=== PATIENT | male | born 1970 | race Caucasian/White ===

== ENCOUNTER → 2016-12-08 | Outpatient (CLI) | payer OTHER ==
[~2016-12-08] MED LIST: IBUP-1050 PO; LISI-787 PO
--- NOTE | 2016-12-08 14:44 | DIAGNOSTIC IMAGING REPORT ---
RIGHT THUMB 3 VIEWS CLINICAL HISTORY: Right thumb pain. FINDINGS: 3 views of the right thumb are correlated with radiographs of the right hand dated 05/27/2015. The skeletal structures are well mineralized. No fracture is seen. The first metacarpophalangeal and interphalangeal joints are well-maintained. The overlying soft tissues are within normal limits. IMPRESSION: No acute bony abnormality is seen in the right thumb. Electronically signed by: Garfield Hebert M.D. 12/08/2016 2:43 PM Dictated Date/Time: 12/08/2016 2:42 PM
== END | disposition home or self-care (01) ==
LOC: C.RDSM 14:17
PROVIDERS: ATTEND Physical Medicine & Rehabilitation Sports Medicine
DX: M79.644 Pain in right finger(s) (principal)

== ENCOUNTER → 2017-12-07 | Outpatient (CLI) | payer OTHER ==
[~2017-12-07] VITALS: Ht 182.9 cm; Wt 118.0 kg
[2017-12-07 09:31] VITALS: BP 149/100; PULSE 76; Ht 182.9 cm; Wt 118.0 kg
== END | disposition home or self-care (01) ==
LOC: C.NEUR 08:59
PROVIDERS: ATTEND Internal Medicine Pulmonary Disease
DX: G47.33 Obstructive sleep apnea (adult) (pediatric) (principal)

== ENCOUNTER → 2017-12-15 | Outpatient (CLI) | payer OTHER ==
--- NOTE | 2017-12-16 05:26 | SPLIT NIGHT TECHNICIAN REPORT ---
[facility] Split Night Polysomnogram - Neon Sign Installer Report Study date: 12/15/2017 Referring Physician: Dr. Matias Matthew DO Name: ABISAI SAN Neon Sign Installer: RICHAR Ace. Date of : 1970 Height: 47 years, Height 6' 0" Sex: Male Weight: 260 lbs Age: 47 BMI: Medications: 35.26 Lorazepam 0.5 mg, Flaxseed Oil 1000 mg, INBU-200, Probiotic, Red Yeast Rice, Vitamin D 55808 units, Zestoretic 10-12.5 Patient History 47 yr. old male here for a possible split night sleep study. Patient complains of witnessed apneas and loud snoring. Patients [place] Sleepiness Scale Score is 9/24. Parameters Monitored NPSG: E1-M2, E2-M1, Fp1-M2, Fp2-M1, F3-M2, F4-M2, F4-M1, C3-M2, C4-M2, C4-M1, O1-M2, O2-M2, O2-M1, T3-M2, T4-M1, P3-M2, P4-M1, CHIN1, CHIN2, HR, EKG, Legs, PFLOW, SNOR, FLOW, CFLOW, Tidal Volume, THOR, ABDO, SpO2, PLTH, CPRESS, ETCO2 Wave, ETCO2, pH SLEEP SUMMARY DATA DIAGNOSTIC TREATMENT Lights Out: 9:58:43 PM NONE Lights On: 12:01:13 AM 5:10:13 AM Total Recording Time (TRT): 123.4 min. 296.6 min. Total Sleep Time (TST): 82.5 min. 240.0 min. NREM Time: 81.0 min. 159.5 min. REM Time: 1.5 min. 80.5 min. Sleep Period Time (SPT): 84.5 min. 285.0 min. Sleep Efficiency (SE): 67 % 81 % Sleep Latency: 9.5 min. NONE min. Arousal Index: 10.9 8.0 PAP Treatment Levels: 4, 5, 6, 7, 8, 9, 10, 11, 12, 13, 14, 15 * Optimal Pressure(s) SLEEP STAGING DATA DIAGNOSTIC TREATMENT Duration (min) TST % Duration (min) TST % Stage Wake: 40.9 min. -- 56.6 min. -- WASO: 30.5 min. -- 45.0 min. -- NREM: 81.0 min. 98 % 159.5 min. 66 % Stage N1: 9.0 min. 11 % 19.5 min. 8 % Stage N2: 54.0 min. 65 % 77.0 min. 32 % Stage N3: 18.0 min. 22 % 63.0 min. 26 % REM: 1.5 min. 2 % 80.5 min. 34 % POSITIONAL DATA Event Count Index Event Count Index Supine: 113 82.2 120 29.8 Supine NREM: 112 83.0 72 26.7 Supine REM: 1 40 48 36 Non-Supine: N/A N/A N/A N/A Non-Supine NREM: N/A N/A N/A N/A Non-Supine REM: N/A N/A N/A N/A AROUSAL SUMMARY DATA: Event Count Index Event Count Index Apnea Arousals: 0 2.9 9 10.5 Hypopnea Arousals: 7 5.1 6 1.5 Snore Arousals: 3 2.2 1 0.3 PLM Arousals: 0 0.0 0 0.0 Non-Specific Arousals: 4 2.9 10 2.5 Total Arousals: 15 10.9 32 8.0 MYOCLONUS (PLM) Event Count Index Event Count Index PLM: 1 0.7 6 1.5 PLM AROUSAL: 0 0.0 0 0.0 PLM W/O AROUSAL 1 0.7 6 1.5 PLM W/RESP EVENT 0 0.0 0 0.0 MYOCLONUS (PLM) Event Count Index Event Count Index LM: 3 21.8 34 8.5 LM AROUSAL: 3 2.2 5 1.3 LM W/O AROUSAL LM W/RESP EVENT LM NON SPECIFIC 19 13.8 19 4.8 HEART RATE DATA DIAGNOSTIC TREATMENT Sleep (bpm): 73 75 REM (bpm): 85 90 NREM (bpm): 89 91 Tachycardia Count: 0 0 Tachycardia Duration: 0.00 0 Bradycardia Count: 0 0 Bradycardia Duration: 0.00 0 DIAGNOSTIC PORTION TREATMENT PORTION RESPIRATORY DATA Event Count Index Event Count Index AHI: -- 82.2 -- 29.8 RDI: -- 82.2 -- 30 Obstructive Apnea: 0 0.0 13 3.3 Central Apnea: 4 2.9 29 7.3 Mixed Apnea: 0 0.0 0 0.0 Hypopnea: 109 79.3 77 19.3 RERA: 0 0.0 1 0.3 Total Apneas: 4 2.9 42 10.5 RESPIRATORY DATA REM NREM SLEEP REM NREM SLEEP Supine Position: Obstructive Apneas: 0 0 0 13 0 13 Central Apneas: 0 4 4 3 26 29 Mixed Apneas: 0 0 0 0 0 0 Hypopneas: 1 108 109 32 45 77 RERA 0 0 0 0 1 1 Total Supine Events: 1 112 113 48 72 120 Supine AHI: 40 83.0 82.2 36 26.7 29.8 Supine RDI: 40.0 83.0 82.2 35.8 27.1 30.0 REM NREM SLEEP REM NREM SLEEP Non-Supine Position: Obstructive Apneas: N/A N/A N/A N/A N/A N/A Central Apneas: N/A N/A N/A N/A N/A N/A Mixed Apneas: N/A N/A N/A N/A N/A N/A Hypopneas: N/A N/A N/A N/A N/A N/A RERA N/A N/A N/A N/A N/A N/A Total Supine Events: N/A N/A N/A N/A N/A N/A Supine AHI: N/A N/A N/A N/A N/A N/A Supine RDI: N/A N/A N/A N/A N/A N/A OXYGEN DESTAURATION DATA: Event Count Index Event Count Index REM Desaturations: 2 80.0 33 24.6 NREM Desaturations: 127 94.1 86 32.4 SNORE DATA DIAGNOSTIC TREATMENT Snore Time: 0.9 12:24:13 AM Snore TST%: 1 2 Snore Arousal Count: 3 1 Snore Arousal Index: 2.2 0.3 Desaturation Event Summary: Minimum %SpO2 Event Count Mean/Min/Max Duration(sec.) Desaturation Index % Time In Bed > 90 287 22.3 / 4.8 / 60.0 67.8 63.1 86 - 90 91 17.9 / 4.0 / 42.0 45.2 30.0 81 - 85 1 5.0 / 5.0 / 5.0 2.9 5.2 76 - 80 0 N/A 0.0 1.3 71 - 75 0 N/A 0.0 0.4 66 - 70 0 N/A 0.0 0.1 61 - 65 0 N/A 0.0 0.0 56 - 60 0 N/A 0.0 0.0 51 - 55 0 N/A 0.0 0.0 < 50 0 N/A 0.0 0.0 OXYGEN SATURATION DATA DIAGNOSTIC TREATMENT SpO2 Mean Sleep: 89 % 91 % SpO2 Mean REM: 85 % 90 % SpO2 Mean NREM: 89 % 91 % SpO2 Minimum Sleep: 69 % 72 % SpO2 Minimum REM: 72 % 72 % SpO2 Minimum NREM: 69 % 78 % Time Below 90% (TST): 46.3 53.7 Time Below 88% (TST): 26.4 28.0 Total REM NREM Awake <50% 0.0 min. 0.0 min. 0.0 min. 0.0 min. 51 - 60% 0.0 min. 0.0 min. 0.0 min. 0.0 min. 61 - 70% 0.2 min. 0.0 min. 0.2 min. 0.0 min. 71 - 80% 6.6 min. 6.0 min. 0.6 min. 0.0 min. 81 - 90% 141.7 min. 23.0 min. 100.4 min. 18.3 min. 91 - 100% 253.9 min. 50.9 min. 133.7 min. 69.3 min. Average 91 90 91 92 Minimum SpO2 69 72 69 80 Desaturation Event Index 46.2 25.6 53.1 49.5 # Desat. Events below 89% 229 24 178 27 Time(%) with Saturation below 89% 19.5 5.1 13.0 1.3 Time(min.) with Saturation below 89% 78.3 20.6 52.4 5.3 Recording Neon Sign Installer Comments: Mr. San slept in the supine positions. No cardiac arrhythmia or PLMs noted. No bruxism noted. Snoring was noted and scored as a 3 on a scale of 0 through 5. (0=no snoring, 5=snoring loud enough to be heard through a closed door or down the bautista way) At12:13 am , Mr. San met specific Split-Night criteria during the diagnostic portion of this study. CPAP was initiated at +4 CMH2O room air and up-titrated to a level of +15 CMH2O Cflex 1. A medium [employer] Simplus, was used during titration. Mr. San awoke to use the restroom once during the night, this was after pulling mask off along with all the leads at 3:44 am. Mr. San stated, " I slept okay". The final report will be interpreted and signed by a sleep physician. The completed physician report will then be placed in the patient medical record. Therapy Event: Therapy (cm H20) 0 4 5 6 7 8 9 Total Time at Pressure (min.) 123.4 23.9 12.0 13.6 13.1 24.6 6.7 TST at Pressure (min.) 82.5 11.8 12.0 13.6 13.1 24.6 6.7 # Periods 1 1 1 1 1 1 1 Sleep Onset (min.) 9.5 10.1 0.0 0.0 0.0 0.0 0.0 REM Onset (min.) 87.0 N/A N/A N/A N/A 21.1 0.0 Sleep Efficiency % 66 49 100 100 100 100 100 Wakefulness (%) 33.2 50.6 0.0 0.0 0.0 0.0 0.0 Wakefulness (min.) 40.9 12.1 0.0 0.0 0.0 0.0 0.0 NREM 1 (%) 7.3 31.4 0.0 0.0 0.0 2.0 0.0 NREM 1 (min.) 9.0 7.5 0.0 0.0 0.0 0.5 0.0 NREM 2 (%) 43.7 18.0 100.0 100.0 69.9 16.2 0.0 NREM 2 (min.) 54.0 4.3 12.0 13.6 9.1 4.0 0.0 NREM 3 (%) 14.6 0.0 0.0 0.0 30.1 67.3 0.0 NREM 3 (min.) 18.0 0.0 0.0 0.0 3.9 16.6 0.0 REM (%) 1.2 0.0 0.0 0.0 0.0 14.5 100.0 REM (min.) 1.5 0.0 0.0 0.0 0.0 3.6 6.7 # Arousals 15 8 1 1 0 2 0 Arousal Index 10.9 40.7 5.0 4.4 0.0 4.9 0.0 # Snore 35 4 35 12 5 3 8 Snore Index 25.5 20.4 174.6 53.1 23.0 7.3 71.7 AHI 82.2 96.7 99.8 66.4 46.0 14.6 62.8 AHI Supine 82.2 96.7 99.8 66.4 46.0 14.6 62.8 AHI Non-Supine N/A N/A N/A N/A N/A N/A N/A NREM AHI 83.0 96.7 99.8 66.4 46.0 2.8 N/A REM AHI 40.0 N/A N/A N/A N/A 84.1 62.8 RDI 82.2 96.7 99.8 66.4 46.0 17.0 62.8 # Obstructive 0 0 0 0 0 3 4 # Central Ap 4 17 8 1 0 0 0 # Mixed 0 0 0 0 0 0 0 # Hypopneas 109 2 12 14 10 3 3 RERAS 0 0 0 0 0 1 0 Total Respiratory Events 113 19 20 15 10 7 7 Time Below SpO2 89.00% (min.) 35.7 2.0 4.2 5.4 4.3 2.7 3.6 Mean NREM SpO2 (%) 89 91 90 90 89 90 N/A Mean REM SpO2 (%) 85 N/A N/A N/A N/A 88 87 Mean Sleep SpO2 (%) 89 91 90 90 89 90 87 Min NREM SpO2 (%) 69 78 82 82 85 87 N/A Min REM SpO2 (%) 72 N/A N/A N/A N/A 74 75 Position Supine (min.) 82.5 11.8 12.0 13.6 13.1 24.6 6.7 Position Non-supine (min.) 0.0 0.0 0.0 0.0 0.0 0.0 0.0 LM Index Sleep 22.5 45.8 15.0 4.4 4.6 4.9 17.9 LM Index NREM 23.0 45.8 15.0 4.4 4.6 2.8 N/A LM Index REM 0.0 N/A N/A N/A N/A 16.8 17.9 Mean Heart Rate (bpm) 73 66 67 69 71 75 78 Min Heart Rate (bpm) 62 60 59 58 62 68 70 Therapy (cm H20) 10 11 12 13 14 15 Total Time at Pressure (min.) 11.4 15.6 20.5 125.0 12.8 17.0 TST at Pressure (min.) 11.4 15.6 20.5 82.0 12.8 16.0 # Periods 1 1 1 1 1 1 Sleep Onset (min.) 0.0 0.0 0.0 0.0 0.0 0.0 REM Onset (min.) 0.0 0.0 0.0 120.4 0.0 0.0 Sleep Efficiency % 100 100 100 65 100 94 Wakefulness (%) 0.0 0.0 0.0 34.4 0.0 5.9 Wakefulness (min.) 0.0 0.0 0.0 43.0 0.0 1.0 NREM 1 (%) 0.0 0.0 0.0 8.8 3.9 0.0 NREM 1 (min.) 0.0 0.0 0.0 11.0 0.5 0.0 NREM 2 (%) 0.0 0.0 49.6 19.1 0.0 0.0 NREM 2 (min.) 0.0 0.0 10.1 23.9 0.0 0.0 NREM 3 (%) 0.0 0.0 0.0 34.0 0.0 0.0 NREM 3 (min.) 0.0 0.0 0.0 42.5 0.0 0.0 REM (%) 100.0 100.0 50.4 3.7 96.1 94.1 REM (min.) 11.4 15.6 10.3 4.7 12.3 16.0 # Arousals 0 2 1 14 2 1 Arousal Index 0.0 7.7 2.9 10.2 9.3 3.8 # Snore 11 16 18 14 1 1 Snore Index 58.1 61.7 52.8 10.2 4.7 3.8 AHI 42.3 34.7 17.6 6.6 32.7 11.3 AHI Supine 42.3 34.7 17.6 6.6 32.7 11.3 AHI Non-Supine N/A N/A N/A N/A N/A N/A NREM AHI N/A N/A 0.0 4.7 0.0 N/A REM AHI 42.3 34.7 34.9 38.7 34.0 11.3 RDI 42.3 34.7 17.6 6.6 32.7 11.3 # Obstructive 3 2 0 1 0 0 # Central Ap 0 0 0 0 3 0 # Mixed 0 0 0 0 0 0 # Hypopneas 5 7 6 8 4 3 RERAS 0 0 0 0 0 0 Total Respiratory Events 8 9 6 9 7 3 Time Below SpO2 89.00% (min.) 4.3 4.4 1.7 1.6 2.0 1.0 Mean NREM SpO2 (%) N/A N/A 93 92 93 N/A Mean REM SpO2 (%) 89 90 92 90 92 92 Mean Sleep SpO2 (%) 89 90 92 92 92 92 Min NREM SpO2 (%) N/A N/A 88 88 92 N/A Min REM SpO2 (%) 72 73 82 83 78 84 Position Supine (min.) 11.4 15.6 20.5 82.0 12.8 16.0 Position Non-supine (min.) 0.0 0.0 0.0 0.0 0.0 0.0 LM Index Sleep 21.1 23.1 11.7 3.7 9.3 3.8 LM Index NREM N/A N/A 0.0 3.9 120.0 N/A LM Index REM 21.1 23.1 23.3 0.0 4.9 3.8 Mean Heart Rate (bpm) 77 77 78 77 79 77 Min Heart Rate (bpm) 68 70 69 66 67 69
--- NOTE | 2017-12-19 14:23 | POLYSOMNOGRAPH REPORT ---
CLINICAL DATA: The patient is a 47-year-old male with a history of snoring and nocturnal gasping. His Haw[place] sleepiness scale score is 9 out of a possible 24. His BMI is 35.26. He has had hypertension, which has been difficult to control. His referring is Dr. Ta Last. This was an in-lab overnight split study. SLEEP ARCHITECTURE: The study was divided into a diagnostic and therapeutic portions utilizing nasal CPAP during the therapeutic portion of the study. During the diagnostic portion, the sleep period time was 84.5 minutes. The total sleep time was 82.5 minutes. The sleep latency was 9.5 minutes. The sleep efficiency was reduced to 67%. Sleep consisted of stage N1 of 11%, stage N2 of 65%, stage N3 of 22%, stage, and stage REM 2%. During the therapeutic portion of the study, the sleep period time was 285 minutes. The total sleep time was 240 minutes. The sleep efficiency was 81%. Sleep latency was 0. Sleep consisted of stage N1 of 8%, stage N2 of 32%, stage N3 of 26%, and stage REM 34%. AROUSAL DATA: During the diagnostic portion of the study, the patient had a total of 15 arousals including 7 hypopnea arousals, 3 snoring arousals, and 4 nonspecific arousals. The arousal index was 10.9. During the therapeutic portion of the study, the patient had 32 arousals including 9 apnea arousals, 6 hypopnea arousals, 1 snoring arousal, and 10 nonspecific arousals. The arousal index was 8.0. PLM DATA: During the diagnostic portion of the study, the patient had only 1 periodic limb movements for a PLM index of 0.7. During the therapeutic portion, he had 6 periodic limb movements for a PLM index of 1.5. There was no arousals associated with limb movements throughout the night. EKG: The underlying cardiac rhythm was normal sinus. The cardiac rates ranged from 73-91 beats per minute. No arrhythmias were noted. RESPIRATORY DATA: During the diagnostic portion of the study, the patient had a total of 113 respiratory events including 4 central apneas and 109 hypopneas. Hypopneas were scored according to the 4% desaturation rule. The apnea hypopnea index was severely elevated at 82.2 events per hour. During the therapeutic portion of the study, the patient was treated with nasal CPAP, which was titrated to a final pressure of 15 cm. The patient had a total of 119 respiratory events including 13 obstructive apneas, 29 central apneas, and 77 hypopneas. The apnea hypopnea index was 29.8. At the final pressure of 15 cm, the apnea-hypopnea index was 11.3. However, there was only a total of 16 minutes of sleep at that final pressure. OXIMETRY DATA: During the diagnostic portion of the study, the mean saturation was 89%. The minimum saturation was 69%. The time below 88% was 26.4 minutes. During the therapeutic portion of the study, the mean saturation was 91%. The minimum saturation was 72%. There was a total of 28 minutes with saturations less than 88%. GREENKEEPER COMMENTS: The patient slept in the supine position. No cardiac arrhythmia noted. No bruxism noted. Snoring was noted and scored as a 3 on a scale of 0 through 5. At 12:13 a.m., Mr. Benito met specific split night criteria during the diagnostic portion of the study. CPAP was initiated at 4 cm and up titrated to a level of 15 cm with C-Flex 1. A medium [employer] Simplus mask was used during the titration. He awakened to use the restroom one time during the night. This was after pulling his mask off along with all of the leads at 03:44 a.m. IMPRESSION: Obstructive sleep apnea -- severe -- improved with nasal CPAP at 15 cm. COMMENTS: The patient has severe sleep apnea as noted. He was treated with nasal CPAP. He had persistence of respiratory events. Early on, he had a fair amount of central apneas. This significantly improved as the night went on. Most of the central apneas resolved at a pressure of 6 cm. He did not have much sleep time at the final pressure. RECOMMENDATIONS: 1. It is advised that the patient be started on nasal CPAP at 15 cm. 2. Compliance data needs to be obtained after CPAP is initiated to see if he is having residual apneas and hypopneas. 3. It would be advised that he be ordered a [employer] Simplus mask, size medium. 4. Weight loss is advised in light of the elevation of body mass index of 35.26. 5. The patient should be seen back in followup between day 31 and day 90 after being on CPAP.
== END | disposition home or self-care (01) ==
LOC: C.NEUR 21:00
PROVIDERS: ATTEND Internal Medicine Pulmonary Disease
DX: G47.33 Obstructive sleep apnea (adult) (pediatric) (principal)

== ENCOUNTER 2023-03-27 11:32 | Inpatient (IN) ==
[2023-03-27 12:53] LABS: Basophils # (auto) 0.03 K/uL (0-0.2); Basophils % (auto) 0.4 %; Eosinophils # (auto) 0.09 K/uL (0-0.50); Eosinophils % (auto) 1.3 %; Hematocrit (blood only) 43.9 % (42.0-52.0); Hemoglobin 15.4 g/dl (14.0-18.0); Immature Granulocytes # (auto) 0.02 K/uL (0.01-0.20); Immature Granulocytes % (auto) 0.3 %; Lymphocytes # (auto) 1.31 K/uL (1.2-3.4); Lymphocytes % (auto) 19.6 %; Mean Corpuscular Hemoglobin 30.1 pg (25.0-34.0); Mean Corpuscular Hgb Conc 35.1 g/dL (32.0-36.0); Mean Corpuscular Volume 85.7 fL (80.0-100.0); Mean Platelet Volume 9.9 fL (9.4-12.4); Monocytes # (auto) 0.58 K/uL (0.11-0.59); Monocytes % (auto) 8.7 %; Neutrophils # (auto) 4.64 K/uL (1.40-6.50); Neutrophils % (auto) 69.7 %; Platelet Count 188 K/uL (130-400); RDW Coefficient of Variation 12.4 % (11.5-14.5); RDW Standard Deviation 38.5 fL (36.4-46.3); Red Blood Count 5.12 M/uL (4.70-6.10); White Blood Count 6.67 K/ul (4.8-10.8)
[2023-03-27 13:10] LABS: Alanine Aminotransferase 24 U/L (7-52); Albumin Globulin Ratio 1.9 (0.9-2); Albumin Level 4.8 gm/dl (3.4-5.0); Alkaline Phosphatase 75 U/L (34-104); Anion Gap 8 (3-11); Aspartate Aminotransferase 20 U/L (13-39); BUN Creatinine Ratio 17.4 (10-20); Bilirubin,Total 0.7 mg/dl (0.2-1.0); Blood Urea Nitrogen 16 mg/dl (6-23); Calcium 9.6 mg/dl (8.6-10.3); Carbon Dioxide 30 mmol/L (21-32); Chloride 103 mmol/L (98-107); Creatinine Clr Calc Pharmacy 115.9 ml/min; Est GFR (African American) 108.9 ml/min; Globulin 2.5 gm/dl (2.5-4.0); Glucose 84 mg/dl (70-99(Fasting)); Potassium 3.5 mmol/L (3.5-5.1); Sodium 141 mmol/L (136-145); Total Protein 7.3 gm/dl (6.0-8.3)
[2023-03-27 14:20] LABS: Prothrombin Time 11.2 Seconds (9.0-12.0)
[2023-03-27] MEDS ORDERED: cefTRIAXone SODIUM 2,000 MG/70 ML BAG IV STA (14:24)
[2023-03-27 14:28] LABS: C Reactive Protein < 0.50 mg/dl (0-0.5)
--- NOTE | 2023-03-27 14:30 | Ultrasound Report ---
US venous doppler LE LT CLINICAL HISTORY: swelling, redness TECHNIQUE: Left lower extremity real-time compression venous ultrasound with Color Doppler imaging. U tilizing real-time ultrasonic imaging multiple real time high-resolution ultrasonic images with compr ession and noncompression maneuvers of the deep venous system in addition to color doppler imaging we re performed from the common femoral vein through the proximal calf veins. COMPARISON: None available at the time of this dictation. FINDINGS/IMPRESSION: Currently there is normal compressibility of the deep venous system from the common femoral vein thro ugh the proximal calf veins. Suprapatellar echogenic collection is seen measuring 33 x 13 x 29 mm, p ossibly a complex hematoma. Correlation with stream physical exam is recommended. ACT 112: Negative or not required by law. Electronically signed by: Abner Elaine M.D. 03/27/2023 2:28 PM
--- NOTE | 2023-03-27 14:31 | Emergency Department Note ---
I had nothing to do with this document, I opened it to read the ED doc's assessment and got added as a contributor now required to sign. Impression & Plan MSSA infection, non-invasive, Bursitis of left knee ED Provider Note Provider: Carmelo Doran MD DATE OF SERVICE: 03/27/2023 CHIEF COMPLAINT: Left knee swelling, referred HISTORY OF PRESENT ILLNESS: Patient is a 53-year-old gentleman history of hypertension presenting here today referred by his primary care doctor's office regarding his left knee. Patient states over the past almost a month at this time he has been dealing with redness and swelling and pain to the front of his left knee. Patient denies significant trauma. Initially started on doxycycline with some concern for Lyme disease. Seen in the outpatient clinic by jesusita panchal and had a bursal drainage a week ago and started on Keflex at that time as well. Culture grew MSSA but not having improvement. Seen by the PCPs office today and sent here. States occasionally has been feeling bit off and like at times he seems to need to find words. States fevers initially but not a week or 2. Some swelling of the left lower leg as well. Denies significant issue with the right leg. Denies other pain. Strong history of gout in the past. Has been using ibuprofen and Tylenol to help with pain but able to move the leg fairly well it hurts when he kneels on it. PAST MEDICAL HISTORY: As noted above MEDICATIONS: Reviewed home medications SOCIAL HISTORY: , distant former smoker, has cut back on alcohol recently PHYSICAL EXAM: GENERAL: alert and oriented in no acute distress on stretcher Head: normocephalic and atraumatic EYES: No injection, discharge or icterus. NECK: Trachea midline. ENT: Mucous membranes pink and moist. LUNGS: Airway patent. No retractions. Breath sounds clear with good air entry bilaterally. HEART: Regular rate and rhythm. No chest wall tenderness SKIN: Acyanotic, warm, dry, without rashes EXTREMITIES: 1+ edema surrounding the left knee with erythema anteriorly. 1+ edema of the left lower extremity to the ankle. No significant cords in the calf appreciated bilaterally. NEUROLOGICAL: No focal deficits. No aphasia. No facial droop or slurred speech. Ambulatory. Patient's laboratory studies and imaging reviewed. Differential includes DVT, musculoskeletal, infection, joint effusion, trauma, lymphedema, idiopathic, CHF, as well as other pathologies. IMPRESSION/MEDICAL DECISION MAKING: Patient with swelling of the left knee. Culture of MSSA from aspirated bursa last week in the office. Has been on doxycycline for several weeks and a week of Keflex now. Culture reportedly sensitive but not without significant improvement. Some swelling of the left lower leg. Denies significant recent travel completed ultrasound to exclude DVT. Does not appear to be vascular compromise at this time and doubt arterial issue. Able to move the joint fairly well and ESR not elevated and I doubt that this is a septic joint. Question if the bursa is inflamed and infected. Normal white count. Afebrile now. Distant fever several weeks ago. Will send cultures but I doubt that he is truly septic. Ultrasound by myself at bedside without a clear circumscribed collection although ultrasound does note possibly a complex hematoma there. Had an x-ray not long ago without evidence of retained foreign body. Thought there might been a little bit of bite to the lateral aspect at some point in the did feel some skin but I do not see a clear wound or abscess to drain at this time. Discussed with our pharmacist. Given a dose of ceftriaxone given the MSSA culture. Discussed with him and his at bedside options at this time and in shared decision-making observation for further IV antibiotics and evaluation of the knee was decided upon. Hospitalist contacted. DIAGNOSIS: Left knee pain and swelling, bursitis DISPOSITION: Hospitalist will evaluate Patient was agreeable with this plan. 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 Surgical History History of carpal tunnel release right History of colonoscopy S/P excision of ganglion cyst S/P tendon repair right ring finger S/P wisdom tooth extraction Status post amputation of finger right little finger tip Family History Other No family history of adverse response to anesthesia No pertinent family history in first degree relatives Social History Smoking Status: Former smoker Cigarettes Per Day: 1 ppd x 14 years; Second Hand Exposure: Yes (hx); Do You Dip or Chew Tobacco: No (quit 2014); Hx Alcohol Use: Yes Alcohol type: hard liquor Hx Substance Use: No Preferred Language: Swiss Communication Ability: Effective 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 Required: No Beliefs That Will Affect Care: None Current Living Situation: Spouse Feels Safe at Home: Yes Assistive Devices: Glasses Allergies Allergies Allergy/AdvReac Type Severity Reaction Status Date / Time No Known Allergies Allergy Verified 03/27/23 15:21 Home Meds Home Medications Medication Instructions Recorded Confirmed alprazolam 0.5 mg tablet 0.5 mg PO BID PRN Anxiety 11/16/18 03/27/23 amlodipine 5 mg tablet 5 mg PO QAM 01/28/19 03/27/23 cholecalciferol (vitamin D3) 25 3,000 unit PO DAILY 01/28/19 03/27/23 mcg (1,000 unit) capsule (Vitamin D3) citalopram 10 mg tablet 10 mg PO QAM 01/28/19 03/27/23 cyanocobalamin (vitamin B-12) 1,000 mcg PO DAILY 01/28/19 03/27/23 1,000 mcg tablet (Vitamin B-12) flaxseed oil 1,000 mg capsule 1,000 mg PO DAILY 01/28/19 03/27/23 red yeast rice 600 mg capsule 600 mg PO DAILY 01/28/19 03/27/23 lisinopril 10 2 tab PO QAM 11/20/19 03/27/23 mg-hydrochlorothiazide 12.5 mg tablet allopurinol 100 mg tablet 100 mg PO BID 03/27/23 03/27/23 colchicine 0.6 mg tablet 0.6 mg PO QAM 03/27/23 03/27/23 diclofenac sodium 1 % topical gel 2 g topical QID 03/27/23 03/27/23 doxycycline hyclate 100 mg capsule 100 mg PO BID 03/27/23 03/27/23 gabapentin 100 mg capsule 100 mg PO BID 03/27/23 03/27/23 lorazepam 0.5 mg tablet 0.5 mg PO Q8H PRN Anxiety 03/27/23 03/27/23 Previous Rx's Medication Instructions Recorded oxycodone 5 mg tablet 5 - 10 mg PO Q4H PRN pain #15 tabs 11/28/19 Results & Data (ED) Vital Signs Vital Signs - 24 hr 03/27/23 11:42 03/27/23 13:25 03/27/23 13:45 Temperature 36.5 C Temperature Source Temporal Artery Scan Pulse Rate 86 72 Pulse Rate [Apical] 69 Pulse Rate from SpO2 Sensor Respiratory Rate 20 20 Respiratory Effort / Characteristics Non-Labored Respiratory Depth Normal Blood Pressure 172/108 H Blood Pressure [Right Arm] 175/104 H Blood Pressure Mean 129 Blood Pressure Mean [Right Arm] 127 Pulse Oximetry 97 95 Oxygen Delivery Method Room Air Room Air Sepsis Recent Fever Within 48 Hours No Sepsis New/Unexplained Change in Mental Status N/A Sepsis Action Taken by Nursing No Action Required 03/27/23 17:43 03/27/23 14:26 03/27/23 14:30 Temperature Temperature Source Pulse Rate 66 72 67 Pulse Rate [Apical] Pulse Rate from SpO2 Sensor 70 66 Respiratory Rate 24 15 Respiratory Effort / Characteristics Respiratory Depth Blood Pressure 151/104 H 147/112 H Blood Pressure [Right Arm] Blood Pressure Mean 119 123 Blood Pressure Mean [Right Arm] Pulse Oximetry 96 95 Oxygen Delivery Method Sepsis Recent Fever Within 48 Hours Sepsis New/Unexplained Change in Mental Status Sepsis Action Taken by Nursing 03/27/23 15:01 03/27/23 15:30 03/27/23 16:00 Temperature Temperature Source Pulse Rate 78 70 72 Pulse Rate [Apical] Pulse Rate from SpO2 Sensor 79 71 72 Respiratory Rate 23 18 22 Respiratory Effort / Characteristics Respiratory Depth Blood Pressure 165/129 H 175/111 H 186/130 H Blood Pressure [Right Arm] Blood Pressure Mean 141 132 148 Blood Pressure Mean [Right Arm] Pulse Oximetry 95 95 96 Oxygen Delivery Method Sepsis Recent Fever Within 48 Hours Sepsis New/Unexplained Change in Mental Status Sepsis Action Taken by Nursing 03/27/23 16:03 03/27/23 16:30 03/27/23 17:00 Temperature Temperature Source Pulse Rate 71 67 69 Pulse Rate [Apical] Pulse Rate from SpO2 Sensor 73 68 69 Respiratory Rate 22 15 21 Respiratory Effort / Characteristics Respiratory Depth Blood Pressure 189/118 H 180/110 H 183/117 H Blood Pressure [Right Arm] Blood Pressure Mean 141 133 139 Blood Pressure Mean [Right Arm] Pulse Oximetry 97 94 93 Oxygen Delivery Method Sepsis Recent Fever Within 48 Hours Sepsis New/Unexplained Change in Mental Status Sepsis Action Taken by Nursing 03/27/23 17:30 Temperature Temperature Source Pulse Rate 67 Pulse Rate [Apical] Pulse Rate from SpO2 Sensor 68 Respiratory Rate 13 Respiratory Effort / Characteristics Respiratory Depth Blood Pressure 165/104 H Blood Pressure [Right Arm] Blood Pressure Mean 124 Blood Pressure Mean [Right Arm] Pulse Oximetry 96 Oxygen Delivery Method Sepsis Recent Fever Within 48 Hours Sepsis New/Unexplained Change in Mental Status Sepsis Action Taken by Nursing Laboratory Data 03/27/23 12:20 03/27/23 12:20 Lab Results 03/27/23 03/27/23 03/27/23 Range/Units 12:20 12:20 12:20 WBC 6.67 (4.8-10.8) K/ul RBC 5.12 (4.70-6.10) M/uL Hgb 15.4 (14.0-18.0) g/dl Hct 43.9 (42.0-52.0) % MCV 85.7 (80.0-100.0) fL MCH 30.1 (25.0-34.0) pg MCHC 35.1 (32.0-36.0) g/dL RDW Std Deviation 38.5 (36.4-46.3) fL RDW Coeff of Inez 12.4 (11.5-14.5) % Plt Count 188 (130-400) K/uL MPV 9.9 (9.4-12.4) fL Immature Gran % (Auto) 0.3 % Neut % (Auto) 69.7 % Lymph % (Auto) 19.6 % Rincon % (Auto) 8.7 % Eos % (Auto) 1.3 % Baso % (Auto) 0.4 % Neut # (Auto) 4.64 (1.40-6.50) K/uL Lymph # (Auto) 1.31 (1.2-3.4) K/uL R[place] # (Auto) 0.58 (0.11-0.59) K/uL Eos # (Auto) 0.09 (0-0.50) K/uL Baso # (Auto) 0.03 (0-0.2) K/uL Immature Gran # (Auto) 0.02 (0.01-0.20) K/uL ESR 5 (0-20) mm/hr PT (9.0-12.0) Seconds INR (0.9-1.1) Sodium 141 (136-145) mmol/L Potassium 3.5 (3.5-5.1) mmol/L Chloride 103 (98-107) mmol/L Carbon Dioxide 30 (21-32) mmol/L Anion Gap 8 (3-11) BUN 16 (6-23) mg/dl Creatinine 0.92 (0.6-1.4) mg/dl Est Cr Clr Drug Dosing 115.9 ml/min Est GFR ( Amer) 108.9 ml/min Est GFR (Non-Af Amer) 94.0 ml/min BUN/Creatinine Ratio 17.4 (10-20) Glucose 84 (70-99(Fasting)) mg/dl Calcium 9.6 (8.6-10.3) mg/dl Total Bilirubin 0.7 (0.2-1.0) mg/dl AST 20 (13-39) U/L ALT 24 (7-52) U/L Alkaline Phosphatase 75 (34-104) U/L C-Reactive Protein < 0.50 (0-0.5) mg/dl Total Protein 7.3 (6.0-8.3) gm/dl Albumin 4.8 (3.4-5.0) gm/dl Globulin 2.5 (2.5-4.0) gm/dl Albumin/Globulin Ratio 1.9 (0.9-2) Procalcitonin (0-0.5) ng/ml SARS-CoV-2, RNA, NAAT (NEGATIVE) 03/27/23 03/27/23 03/27/23 Range/Units 12:20 12:20 Unknown WBC (4.8-10.8) K/ul RBC (4.70-6.10) M/uL Hgb (14.0-18.0) g/dl Hct (42.0-52.0) % MCV (80.0-100.0) fL MCH (25.0-34.0) pg MCHC (32.0-36.0) g/dL RDW Std Deviation (36.4-46.3) fL RDW Coeff of Inez (11.5-14.5) % Plt Count (130-400) K/uL MPV (9.4-12.4) fL Immature Gran % (Auto) % Neut % (Auto) % Lymph % (Auto) % Rincon % (Auto) % Eos % (Auto) % Baso % (Auto) % Neut # (Auto) (1.40-6.50) K/uL Lymph # (Auto) (1.2-3.4) K/uL R[place] # (Auto) (0.11-0.59) K/uL Eos # (Auto) (0-0.50) K/uL Baso # (Auto) (0-0.2) K/uL Immature Gran # (Auto) (0.01-0.20) K/uL ESR (0-20) mm/hr PT 11.2 (9.0-12.0) Seconds INR 1.0 (0.9-1.1) Sodium (136-145) mmol/L Potassium (3.5-5.1) mmol/L Chloride (98-107) mmol/L Carbon Dioxide (21-32) mmol/L Anion Gap (3-11) BUN (6-23) mg/dl Creatinine (0.6-1.4) mg/dl Est Cr Clr Drug Dosing ml/min Est GFR ( Amer) ml/min Est GFR (Non-Af Amer) ml/min BUN/Creatinine Ratio (10-20) Glucose (70-99(Fasting)) mg/dl Calcium (8.6-10.3) mg/dl Total Bilirubin (0.2-1.0) mg/dl AST (13-39) U/L ALT (7-52) U/L Alkaline Phosphatase (34-104) U/L C-Reactive Protein (0-0.5) mg/dl Total Protein (6.0-8.3) gm/dl Albumin (3.4-5.0) gm/dl Globulin (2.5-4.0) gm/dl Albumin/Globulin Ratio (0.9-2) Procalcitonin < 0.05 (0-0.5) ng/ml SARS-CoV-2, RNA, NAAT NEGATIVE (NEGATIVE) Administered Medications Discontinued Medications Hydralazine HCl (Hydralazine Hcl 20 Mg/Ml Vial) 10 mg IV NOW STA Stop: 03/27/23 16:33 Last Admin: 03/27/23 17:18 Dose: 10 mg Documented By: NRB Ceftriaxone Sodium (Rocephin) 2,000 mg in 70 mls @ 140 mls/hr IV NOW STA Stop: 03/27/23 14:53 Last Infusion: 03/27/23 15:32 Dose: 0 mls/hr Documented By: Admin: 03/27/23 15:06 Dose: 140 mls/hr Documented By: YASMIN Ketorolac Tromethamine (Ketorolac Tromethamine 15 Mg/Ml Vial) 15 mg IV NOW STA Stop: 03/27/23 15:27 Last Admin: 03/27/23 16:08 Dose: 15 mg Documented By: RSEvelyn Imaging Data Radiologist's Impression: Venous Doppler Study 03/27/23 13:46 US venous doppler LE LT CLINICAL HISTORY: swelling, redness TECHNIQUE: Left lower extremity real-time compression venous ultrasound with Color Doppler imaging. Utilizing real-time ultrasonic imaging multiple real time high-resolution ultrasonic images with compression and noncompression maneuvers of the deep venous system in addition to color doppler imaging were performed from the common femoral vein through the proximal calf veins. COMPARISON: None available at the time of this dictation. FINDINGS/IMPRESSION: Currently there is normal compressibility of the deep venous system from the common femoral vein through the proximal calf veins. Suprapatellar echogenic collection is seen measuring 33 x 13 x 29 mm, possibly a complex hematoma. Correlation with stream physical exam is recommended. ACT 112: Negative or not required by law. Electronically signed by: Abner Elaine M.D. 03/27/2023 2:28 PM Knee X-Ray 03/27/23 15:32 XR knee LT 1 or 2V routine CLINICAL HISTORY: Eval for MSSA bony involvement TECHNIQUE: 2 views of the left knee were obtained. Comparison: Comparison is made to knee radiograph 06/03/2013 FINDINGS: There is no evidence of an acute fracture or focal erosion. Joint spaces are well-preserved. No joint effusion is seen. Soft tissue swelling is seen. IMPRESSION: Soft tissue swelling which may represent cellulitis, without evidence of bony involvement. ACT 112: Negative or not required by law. Electronically signed by: Abner Elaine M.D. 03/27/2023 4:28 PM Discharge Plan Visit Data Chief Complaint: Infection Stated Complaint: REF BY DOC; LT KNEE PAIN/INFECTION ED Provider: Carmelo Doran Discharge Problem: MSSA infection, non-invasive, Bursitis of left knee Patient Disposition: Being Evaluated by Hospitalist Forms Stand Alone Forms: [facility] Prescriptions Prescriptions: No Action alprazolam 0.5 mg Tablet 0.5 mg PO BID PRN (Reason: Anxiety) citalopram 10 mg Tablet 10 mg PO QAM cyanocobalamin (vitamin B-12) [Vitamin B-12] 1,000 mcg Tablet 1,000 mcg PO DAILY amlodipine 5 mg Tablet 5 mg PO QAM flaxseed oil 1,000 mg Capsule 1,000 mg PO DAILY cholecalciferol (vitamin D3) [Vitamin D3] 1,000 unit Capsule 3,000 unit PO DAILY red yeast rice 600 mg Capsule 600 mg PO DAILY lisinopril-hydrochlorothiazide 10-12.5 mg Tablet 2 tab PO QAM oxycodone 5 mg Tablet 5 - 10 mg PO Q4H PRN (Reason: pain) Qty: 15 0RF Rx Instructions: 5mg for pain 1-5 10 mg for pain 6-10 doxycycline hyclate 100 mg capsule 100 mg PO BID Rx Instructions: Start Date 03/12/23 - End Date 03/26/23 (Pt states he has 2-3 capsules left) allopurinol 100 mg tablet 100 mg PO BID lorazepam 0.5 mg tablet 0.5 mg PO Q8H PRN (Reason: Anxiety) gabapentin 100 mg capsule 100 mg PO BID colchicine 0.6 mg tablet 0.6 mg PO QAM diclofenac sodium 1 % gel 2 g TOPICAL QID Referrals Referrals: Ta Last MD [Primary Care Provider] -
--- NOTE | 2023-03-27 15:11 | History & Physical Report ---
Date of Service March 27, 2023 Assessment & Plan (1) Cellulitis of leg, left: (2) MSSA infection, non-invasive: Plan: - Admit to med surg - MSSA + culture from synovial fluid from 03/20 by ortho at [facility], neg Lymes testing, neg uric acid upon review of outpatient EPIC results - Pt has been on oral Keflex x 7 days (started on 03/20) and doxycycline (started on 03/12) -- Continue on IV cipro and flagyl for more anaerobic coverage - Xray the knee now, consider MRI of the knee pending results - Consider orthopedics consultation - US of the leg reviewed showing fluid collection, negative for DVT - No gout as per testing as outpatient, can continue allopurinol but dc colchicine as there is no acute flare - Encourage ambulation, US leg negative for DVT - Continue pain control with toradol IV prn (3) Hypertension: Plan: - May continue home meds of lisionpril-HCTZ, amlodipine - BP is acutely elevated at 189/113 upon my recheck, and pt reports did take home meds today - will order prn hydralazine with one dose now - possible white coat syndrome - pt has underlying anxiety at baseline (4) Alcohol use: Plan: - Pt reports having previously used up to a 5th of [employer] daily for years-- since the possible gout flare about 1 month ago he reduced to 1-3 beers per night -- states no withdrawal symptoms and has not been drinking much beer at all because he has not felt well in the past 3 weeks. Previously quite smoking cigarettes and chewing snuff cold turkey without difficulty. - Monitor (5) Anxiety: Plan: - Cont celexa, gabapentin BID, and ativan 0.5 mg bid prn DVT ppx: teds, scds of R leg CODE: FULL Dispo: From home, likely to remain in the hospital x 1-2 days A total of 76 minutes were spent with greater than 50% of that time face to face with the patient, personally reviewing all current laboratories, imaging studies , past medication reconciliation, outpatient chart review, and discussion with specialists to collaborate care for the patient with attending. Please see attending documentation for corrections and/or additions. History of Present Illness Chief Complaint: Left knee redness and swelling Primary Care Provider: Ta Last MD This is a 53-year-old male with PMHx of HTN, HLD, and TRUNG with CPAP, BEBO, previous alcohol abuse and previous remote smoking and chewing use, who presents to the hospital after being referred by his PCP today. Patient has been being treated as an outpatient for approximately the last 4 weeks for left knee erythema and swelling. Pt recalls around 02/25 he bumped the outside of his left side of his knee at work which developed a small area of a scab, and had residual lower leg puffiness and redness thereafter . He was seen on 03/03 by his PCP initially due to redness, swelling, pain as well as difficulty bending his knee. Possibility of Lymes led course of doxycycline, however his Lyme's titers are negative. Knee did not improve with doxy alone. Pt was prescribed colchicine for possible gout flare without improvement, however uric acid levels are low. He had a synovial fluid aspiration done on 03/20 by Ortho at [facility] which grew out MSSA. Keflex was added to doxycycline for coverage and has been taking this for the past week. Patient has had intermittent fevers on and off throughout this course, and reports that he generally does not feel well. Leg continues to be erythematous and swollen in the pretibial region of the left leg. He presents to the hospital for treatment of such and for failure of outpatient antibiotics. Last fever was several weeks ago, he has not had a fever since being on cephalexin. The highest his fever was was 103. He is able to bear weight, can bend his knee, but still reports having dependent edema. Allergies Allergy/AdvReac Type Severity Reaction Status Date / Time No Known Allergies Allergy Verified 03/27/23 15:21 Home Medications Medication Instructions Recorded Confirmed Type alprazolam 0.5 mg tablet 0.5 mg PO BID PRN Anxiety 11/16/18 03/27/23 History amlodipine 5 mg tablet 5 mg PO QAM 01/28/19 03/27/23 History cholecalciferol (vitamin D3) 25 3,000 unit PO DAILY 01/28/19 03/27/23 History mcg (1,000 unit) capsule (Vitamin D3) citalopram 10 mg tablet 10 mg PO QAM 01/28/19 03/27/23 History cyanocobalamin (vitamin B-12) 1,000 mcg PO DAILY 01/28/19 03/27/23 History 1,000 mcg tablet (Vitamin B-12) flaxseed oil 1,000 mg capsule 1,000 mg PO DAILY 01/28/19 03/27/23 History red yeast rice 600 mg capsule 600 mg PO DAILY 01/28/19 03/27/23 History lisinopril 10 2 tab PO QAM 11/20/19 03/27/23 History mg-hydrochlorothiazide 12.5 mg tablet oxycodone 5 mg tablet 5 - 10 mg PO Q4H PRN pain #15 tabs 11/28/19 03/27/23 Rx allopurinol 100 mg tablet 100 mg PO BID 03/27/23 03/27/23 History colchicine 0.6 mg tablet 0.6 mg PO QAM 03/27/23 03/27/23 History diclofenac sodium 1 % topical gel 2 g topical QID 03/27/23 03/27/23 History doxycycline hyclate 100 mg capsule 100 mg PO BID 03/27/23 03/27/23 History gabapentin 100 mg capsule 100 mg PO BID 03/27/23 03/27/23 History lorazepam 0.5 mg tablet 0.5 mg PO Q8H PRN Anxiety 03/27/23 03/27/23 History Past Med/Surg History Medical History (Updated 03/27/23 @ 15:15 by Magaly Nick PA-C) Anxiety Depression GERD (gastroesophageal reflux disease) hypergastrocolic reflux Hypertension 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 Surgical History History of carpal tunnel release right History of colonoscopy S/P excision of ganglion cyst S/P tendon repair right ring finger S/P wisdom tooth extraction Status post amputation of finger right little finger tip Family History Other No family history of adverse response to anesthesia No pertinent family history in first degree relatives Social History Smoking Status: Former smoker Cigarettes Per Day: 1 ppd x 14 years; Second Hand Exposure: Yes (hx); Do You Dip or Chew Tobacco: No (quit 2014); Hx Alcohol Use: Yes Alcohol type: hard liquor Hx Substance Use: No Preferred Language: Sami Communication Ability: Effective Bar Supervisor Required: No Beliefs That Will Affect Care: None Current Living Situation: Spouse Feels Safe at Home: Yes Assistive Devices: Glasses Review of Systems Review of Systems: Constitutional: No fever, sweats or chills Eyes: No diplopia, no worsening or blurred vision ENT: normal hearing, no trouble swallowing Respiratory: No cough, sputum, dyspnea at rest or on exertion Cardiovascular: No chest pain, tightness or palpitations Abdomen: No pain, nausea, vomiting, diarrhea or constipation Musculoskeletal: Left knee pretibial erythema, edema, and warmth, no calf pain, + swelling Neurologic: No weakness, numbness/tingling, or balance problems Psychiatric: No anxiety or depression Skin: No rash or itch Physical Exam Physical Exam: General: awake, alert, no apparent distress Head: Normocephalic, atraumatic ENT: PERRL, EOMI, no pharyngeal exudate, mucous membranes moist Chest: Clear to auscultation, on room air, no adventitious breath sounds Cardiac: Regular rate and rhythm, no murmur, no JVD, normal peripheral pulses, good capillary refill Abdominal: NABS x 4 quadrants, soft, nondistended, nontender to palpation, no rebound or guarding Extremities: Left knee pretibial region is edematous with obvious enlargement, erythema, and tenderness over the lateral aspect with palpation, no joint line pain, pt is able to bend the knee with full ROM, + 1+ pitting edema of LLE. Other extremities with normal inspection, no right peripheral edema or erythema, calfs nontender to palpation Psych: Normal mood and affect Neuro: AAO x 3, strength intact bilaterally and rated 5/5, no motor deficits, speech is clear, no peripheral sensory deficits Results & Data Results & Data Vital Signs (Past 12 Hours) Vital Signs Temp Pulse Pulse Resp BP BP Pulse Ox 03/27/23 13:45 72 03/27/23 13:25 69 20 175/104 H 95 03/27/23 11:42 36.5 C 86 20 172/108 H 97 O2 Del Method 03/27/23 13:45 03/27/23 13:25 Room Air 03/27/23 11:42 Room Air Laboratory Results 03/27/23 14:32 Aerobic Blood Culture - Pending Blood Anaerobic Blood Culture - Pending 03/27/23 14:32 Aerobic Blood Culture - Pending Blood Anaerobic Blood Culture - Pending 03/27/23 03/27/23 03/27/23 Unknown 12:20 12:20 WBC RBC Hgb Hct MCV MCH MCHC RDW Std Deviation RDW Coeff of Inez Plt Count MPV Immature Gran % (Auto) Neut % (Auto) Lymph % (Auto) [place] % (Auto) Eos % (Auto) Baso % (Auto) Neut # (Auto) Lymph # (Auto) [place] # (Auto) Eos # (Auto) Baso # (Auto) Immature Gran # (Auto) ESR PT 11.2 INR 1.0 Sodium Potassium Chloride Carbon Dioxide Anion Gap BUN Creatinine Est Cr Clr Drug Dosing Est GFR ( Amer) Est GFR (Non-Af Amer) BUN/Creatinine Ratio Glucose Calcium Total Bilirubin AST ALT Alkaline Phosphatase C-Reactive Protein Total Protein Albumin Globulin Albumin/Globulin Ratio Procalcitonin < 0.05 SARS-CoV-2, RNA, NAAT NEGATIVE 03/27/23 03/27/23 03/27/23 12:20 12:20 12:20 WBC 6.67 RBC 5.12 Hgb 15.4 Hct 43.9 MCV 85.7 MCH 30.1 MCHC 35.1 RDW Std Deviation 38.5 RDW Coeff of Inez 12.4 Plt Count 188 MPV 9.9 Immature Gran % (Auto) 0.3 Neut % (Auto) 69.7 Lymph % (Auto) 19.6 Schoolcraft % (Auto) 8.7 Eos % (Auto) 1.3 Baso % (Auto) 0.4 Neut # (Auto) 4.64 Lymph # (Auto) 1.31 Schoolcraft # (Auto) 0.58 Eos # (Auto) 0.09 Baso # (Auto) 0.03 Immature Gran # (Auto) 0.02 ESR 5 PT INR Sodium 141 Potassium 3.5 Chloride 103 Carbon Dioxide 30 Anion Gap 8 BUN 16 Creatinine 0.92 Est Cr Clr Drug Dosing 115.9 Est GFR ( Amer) 108.9 Est GFR (Non-Af Amer) 94.0 BUN/Creatinine Ratio 17.4 Glucose 84 Calcium 9.6 Total Bilirubin 0.7 AST 20 ALT 24 Alkaline Phosphatase 75 C-Reactive Protein < 0.50 Total Protein 7.3 Albumin 4.8 Globulin 2.5 Albumin/Globulin Ratio 1.9 Procalcitonin SARS-CoV-2, RNA, NAAT Diagnostic Findings Venous Doppler Study 03/27/23 13:46 US venous doppler LE LT CLINICAL HISTORY: swelling, redness TECHNIQUE: Left lower extremity real-time compression venous ultrasound with Color Doppler imaging. Utilizing real-time ultrasonic imaging multiple real time high-resolution ultrasonic images with compression and noncompression maneuvers of the deep venous system in addition to color doppler imaging were performed from the common femoral vein through the proximal calf veins. COMPARISON: None available at the time of this dictation. FINDINGS/IMPRESSION: Currently there is normal compressibility of the deep venous system from the common femoral vein through the proximal calf veins. Suprapatellar echogenic collection is seen measuring 33 x 13 x 29 mm, possibly a complex hematoma. Correlation with stream physical exam is recommended. ACT 112: Negative or not required by law. Electronically signed by: Abner Elaine M.D. 03/27/2023 2:28 PM Code Status & VTE Plan Code Status Full code Supervising Physician Co-Signing Physician Notes Mr. Benito is a 53 year old male with PMHx (per chart) of HTN, HLD, TRUNG with CPAP, gout, BEBO, and previous alcohol use d/o, and previous remote smoking and chewing use. He presents to the hospital after being referred by his PCP today out of concern for left knee infection. He had surgery on the right 4th finger in January. Around that same time he developed swelling in the left knee. Since he was found to have gout in the finger joint, the knee swelling was also dx as gout. He was eventually able to get into his PCP's office (but seen by a different provider) who stopped HCTZ and started allopurinol. Both of his legs became edematous and there was no improvement in the left knee. He got into see his PCP who then added colchicine which also did not help. At some point since early February he was treated with Doxycycline (in case he had Lyme's dz) without improvement. He was also treated with Keflex. The left knee was tapped by ortho, cx grew MSSA. Despite the abx he continues to have a warm, erythematous, edematous knee that is TTP. In February he had fevers and chills with TMax of over 103. This is asso ciated with persistent fatigue and malaise. He denies any f/c now. Earlier today he had a migraine MCKINLEY in the right occipital area that radiated to behind the right eye and was associated with photophobia but is currently resolved. He denies cough, congestion, sore throat, n/v, CP, sob, and abdominal pain. He did experience some diarrhea with the antibiotics. He has no other complaints. PE: Gen: NAD, well developed, well nourished Head: NC AT Eyes: anicteric sclera, no conjunctival injection Nose: normal, nares patent Mouth: MMM Neck: supple, trachea midline CV: RRR S1 S2, no m/r/g Pulm: CTA b/l, normal effort Abd: +BS, soft, NT, ND, no guarding : no minor MSK: normal bulk and tone Ext: Left knee with blanching erythema spread beyond outline drawn, TTP, swollen. Skin: other than the left knee no visible rash is noted though pt was not fully undressed for exam Neuro: moving all 4 extremities symmetrically, oriented x 3, alert, no focal deficits Psych: pleasant mood and affect # MSSA infection of the left knee, cellulitis will broaden coverage to Cipro/Flagyl based on hospital nomogram (anaerobes, MSSA, gram neg bacilli such as Pseudomonas) persistence of symptoms despite Keflex and Doxycycline are worrisome for chronic lyme or maybe additional organisms that did not grow out on culture ID consulted, appreciate input, will follow recs, consider consult to ortho for repeat arthrocentesis # HTN: per pt typically well controlled, currently uncontrolled d/t anxiety over the situation continue home regimen and anxiolytic therapy, escalate as needed # EtOh use: pt has cut down dramatically to a few beers a day from 1/5th of [employer] per day counselled on cessation # gout: continue allopurinol, check current uric acid, recently > 10 # anxiety: suboptimally controlled, continue prn alprazolam, citalopram 10 mg daily, gabapentin 100 mg BID, and OP f/u. Rest per attested note above (3) Hypertension Hypertension type: unspecified Qualified Code(s): I10 - Essential (primary) hypertension
[2023-03-27] MEDS ORDERED: KETOROLAC TROMETHAMINE 15 MG/ML VIAL IV STA (15:26)
--- NOTE | 2023-03-27 16:30 | XRay Report ---
XR knee LT 1 or 2V routine CLINICAL HISTORY: Eval for MSSA bony involvement TECHNIQUE: 2 views of the left knee were obtained. Comparison: Comparison is made to knee radiograph 06/03/2013 FINDINGS: There is no evidence of an acute fracture or focal erosion. Joint spaces are well-preserved. No joint effusion is seen. Soft tissue swelling is seen. IMPRESSION: Soft tissue swelling which may represent cellulitis, without evidence of bony involvement. ACT 112: Negative or not required by law. Electronically signed by: Abner Elaine M.D. 03/27/2023 4:28 PM
[2023-03-27] MEDS ORDERED: hydrALAZINE HCL 20 MG/ML VIAL IV STA (16:32)
[2023-03-27] MEDS ORDERED: ONDANSETRON INJ 2 MG/ML 2 ML VIAL IV PRN (18:33)
[2023-03-27] MEDS ORDERED: hydrALAZINE HCL 20 MG/ML VIAL IV PRN (18:33)
[2023-03-27] MEDS: metroNIDAZOLE 500 MG/100 ML BAG IV SCH (20:27)
[2023-03-27] MEDS: allopurinoL 100 MG TAB PO SCH (20:28)
[2023-03-27] MEDS: GABAPENTIN 100 MG CAP PO SCH (20:28)
[2023-03-27] MEDS: LORazepam 0.5 MG TAB PO PRN (20:28)
[2023-03-27] MEDS: DICLOFENAC SOD 1% GEL 100 GM TUBE EXT SCH ×2 (20:28→20:55)
[2023-03-27] MEDS: CIPROFLOXACIN / D5W 400 MG/200 ML BAG IV SCH (21:57)
[2023-03-27] MEDS: ALPRAZolam 0.5 MG TABLET PO PRN (22:09)
[2023-03-28] MEDS: metroNIDAZOLE 500 MG/100 ML BAG IV SCH (04:07)
[2023-03-28 06:35] LABS: Hematocrit (blood only) 41.7 % (42.0-52.0); Hemoglobin 14.9 g/dl (14.0-18.0); Mean Corpuscular Hemoglobin 29.9 pg (25.0-34.0); Mean Corpuscular Hgb Conc 35.7 g/dL (32.0-36.0); Mean Corpuscular Volume 83.7 fL (80.0-100.0); Mean Platelet Volume 9.9 fL (9.4-12.4); Platelet Count 166 K/uL (130-400); RDW Coefficient of Variation 12.2 % (11.5-14.5); RDW Standard Deviation 37.1 fL (36.4-46.3); Red Blood Count 4.98 M/uL (4.70-6.10); White Blood Count 4.97 K/ul (4.8-10.8)
[2023-03-28 06:41] LABS: Calcium 8.9 mg/dl (8.6-10.3); Est GFR (African American) 111.8 ml/min; Est GFR (Non-African American) 96.5 ml/min; Potassium 3.6 mmol/L (3.5-5.1)
[2023-03-28] MEDS: amLODIPine BESYLATE 5 MG TAB PO SCH (08:22)
[2023-03-28] MEDS: allopurinoL 100 MG TAB PO SCH ×2 (08:22→20:13)
[2023-03-28] MEDS: CHOLECALCIFEROL 1,000 UNITS 25 MCG TAB PO SCH (08:22)
[2023-03-28] MEDS: CITALOPRAM 20 MG TAB PO SCH (08:22)
[2023-03-28] MEDS: DICLOFENAC SOD 1% GEL 100 GM TUBE EXT SCH ×4 (08:23→20:13)
[2023-03-28] MEDS: LORazepam 0.5 MG TAB PO PRN (08:23)
[2023-03-28] MEDS: LISINOPRIL/HCTZ 10/12.5MG TAB PO SCH (08:23)
[2023-03-28] MEDS: GABAPENTIN 100 MG CAP PO SCH ×2 (08:23→20:13)
[2023-03-28] MEDS: CYANOCOBALAMIN (B-12) 500 MCG TABLET PO SCH (08:23)
[2023-03-28] MEDS: CIPROFLOXACIN / D5W 400 MG/200 ML BAG IV SCH (10:20)
[2023-03-28] MEDS: DAPTOmycin 350 MG in SYRINGE 0 ML IV SCH (11:08)
--- NOTE | 2023-03-28 12:14 | Consultation ---
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 My recommendation would be antibiotics specific for MSSA. I reviewed [facility] notes which do show MSSA from aspiration from the prepatellar bursa. I do not see evidence of septic knee. Given significant clinical improvement with antibiotics, I feels unlikely he will need surgical treatment. Orthopedics will sign off. Please call if you have any other questions or concerns. History of Present Illness Reason for Consultation: Left knee swelling Attending Physician: Jameel Castillo MD History of Present Illness This is a gentleman with progressive left knee swelling in the prepatellar bursa. This is been present for about a month. He presents after aspiration at [facility] of the prepatellar bursa. He presents for admission with for antibiotics, IV. He notes significant improvement with IV antibiotics Allergies Allergy/AdvReac Type Severity Reaction Status Date / Time No Known Allergies Allergy Verified 03/27/23 15:21 Home Medications Medication Instructions Recorded Confirmed Type alprazolam 0.5 mg tablet 0.5 mg PO BID PRN Anxiety 11/16/18 03/27/23 History amlodipine 5 mg tablet 5 mg PO QAM 01/28/19 03/27/23 History cholecalciferol (vitamin D3) 25 3,000 unit PO DAILY 01/28/19 03/27/23 History mcg (1,000 unit) capsule (Vitamin D3) citalopram 10 mg tablet 10 mg PO QAM 01/28/19 03/27/23 History cyanocobalamin (vitamin B-12) 1,000 mcg PO DAILY 01/28/19 03/27/23 History 1,000 mcg tablet (Vitamin B-12) flaxseed oil 1,000 mg capsule 1,000 mg PO DAILY 01/28/19 03/27/23 History red yeast rice 600 mg capsule 600 mg PO DAILY 01/28/19 03/27/23 History lisinopril 10 2 tab PO QAM 11/20/19 03/27/23 History mg-hydrochlorothiazide 12.5 mg tablet oxycodone 5 mg tablet 5 - 10 mg PO Q4H PRN pain #15 tabs 11/28/19 03/27/23 Rx allopurinol 100 mg tablet 100 mg PO BID 03/27/23 03/27/23 History colchicine 0.6 mg tablet 0.6 mg PO QAM 03/27/23 03/27/23 History diclofenac sodium 1 % topical gel 2 g topical QID 03/27/23 03/27/23 History doxycycline hyclate 100 mg capsule 100 mg PO BID 03/27/23 03/27/23 History gabapentin 100 mg capsule 100 mg PO BID 03/27/23 03/27/23 History lorazepam 0.5 mg tablet 0.5 mg PO Q8H PRN Anxiety 03/27/23 03/27/23 History Patient History Medical History (Updated 03/28/23 @ 12:17 by Troy Morgan MD) Anxiety Depression GERD (gastroesophageal reflux disease) hypergastrocolic reflux Hypertension 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 Surgical History History of carpal tunnel release right History of colonoscopy S/P excision of ganglion cyst S/P tendon repair right ring finger S/P wisdom tooth extraction Status post amputation of finger right little finger tip Family History Other No family history of adverse response to anesthesia No pertinent family history in first degree relatives Social History Smoking Status: Former smoker Cigarettes Per Day: 1 ppd x 14 years; Smoking End Date: quit smoking-2000; Second Hand Exposure: No; Do You Dip or Chew Tobacco: No (quit chew tobacco 10/2014); Hx Alcohol Use: Yes (decreased alcohol intake significantly in January 2023) Alcohol type: beer Hx Substance Use: No Preferred Language: Russian Communication Ability: Effective Power Engineer Required: No Beliefs That Will Affect Care: None Current Living Situation: Spouse Other Information That Helps Us Care for You: No Feels Safe at Home: Yes Safety Concerns: Feels Safe At This Time Assistive Devices: Glasses Physical Exam Musculoskeletal: Left knee exam: Shows mild fluctuance over the prepatellar bursa, well localized. I do not appreciate any gouty tophi. Prior markings suggest significant decrease in associated cellulitis. Currently he has minimal cellulitis. He is able to extend the leg off the bed and flex and extend the knee without significant discomfort Results & Data Vital Signs (Past 12 Hours) Vital Signs Temp Pulse Resp BP Pulse Ox O2 Del Method 03/28/23 07:30 36.7 C 73 16 154/94 H 97 Room Air
[2023-03-28] MEDS: ACETAMINOPHEN 325 MG TAB PO PRN (15:24)
--- NOTE | 2023-03-28 16:43 | CT Scan Report ---
CT SCAN OF THE BRAIN WITHOUT IV CONTRAST CLINICAL HISTORY: Headache. COMPARISON STUDY: No priors. TECHNIQUE: Unenhanced axial CT scan of the brain is performed from the vertex to the skull base. A d ose lowering technique was utilized adhering to the principles of ALARA. CT DOSE: 625.80 mGy.cm FINDINGS: Brain parenchyma: The brain parenchyma is normal in appearance. There is no hemorrhage, mass effect, or evidence of acute territorial ischemia by CT criteria. Boss-white matter differentiation is preser ghada. No extra-axial fluid collection is seen. Ventricles, sulci, cisterns: Normal in configuration. Intracranial vasculature: The visualized intracranial vasculature at the skull base is normal in appe arance. Calvarium: Unremarkable. Sinuses and mastoids: The visualized paranasal sinuses are clear. The mastoid air cells are well pneu matized. Orbits: The bony orbits are grossly intact. IMPRESSION: No acute intracranial abnormality. ACT 112: Negative or not required by law. Electronically signed by: Garfield Hebert M.D. 03/28/2023 4:41 PM
--- NOTE | 2023-03-28 18:15 | Hospitalist Progress Note ---
Date of Service March 28, 2023 Assessment & Plan (1) Cellulitis of left knee: (2) MSSA infection, non-invasive: Plan: Per admitting service notes with addendum: - MSSA + culture from synovial fluid from 03/20 by ortho at [facility], neg Lymes testing, neg uric acid upon review of outpatient EPIC results - Pt has been on oral Keflex x 7 days (started on 03/20) and doxycycline (started on 03/12) 03/28 Venous Doppler study left lower extremity:Currently there is normal compressibility of the deep venous system from the common femoral vein through the proximal calf veins. Suprapatellar echogenic collection is seen measuring 33 x 13 x 29 mm, possibly a complex hematoma. Correlation with stream physical exam is recommended. X-ray left knee:Soft tissue swelling which may represent cellulitis, without evidence of bony involvement. Continue daptomycin day #1, ciprofloxacin day #2 ID consulted, awaiting recommendations Orthopedic service consulted (3) Hypertension: Plan: - May continue home meds of lisinopril-HCTZ, amlodipine (4) Alcohol use: Plan: - Pt reports having previously used up to a 5th of [employer] daily for years-- since the possible gout flare about 1 month ago he reduced to 1-3 beers per night -- states no withdrawal symptoms and has not been drinking much beer at all because he has not felt well in the past 3 weeks. Previously quite smoking cigarettes and chewing snuff cold turkey without difficulty. - Monitor (5) Anxiety: Plan: - Cont celexa, gabapentin BID, and ativan 0.5 mg bid prn Headache Patient reports right-sided headache, intermittent CT head without contrast: Negative for acute process Continue as needed Tylenol, ibuprofen next DVT ppx: teds, scds of R leg CODE: FULL Dispo: Anticipate discharge to home medically stable Admission and Anticipated Discharge Date Admission Date: March 27, 2023 Subjective Follow-up for left knee cellulitis, etc. Seen resting in bed, not in distress, comfortable States left knee pain is about the same Able to ambulate, able to flex the knee No fevers or chills Reports intermittent headache No other symptom Review of Systems Review of Systems: all noted and negative except for above Physical Exam Physical Exam: General- oriented x 3, not in distress, speaks in sentences with no effort or accessory muscle use Eyes- anicteric Neck- no JVD Lungs- clear breath sounds bilaterally, no rales/wheezes Heart- normal rate, regular rhythm; no murmurs Abdomen- normal bowel sounds, nondistended, soft, nontender Extremities- Left knee-positive fluctuant area on the patellar region, positive moderate erythema, mild warmth, mild tenderness no pretibial edema, no calf tenderness Neuro- alert, oriented x 3; no gross focal neurologic deficits Skin- warm & dry Results & Data Results & Data Vital Signs (Past 12 Hours) Vital Signs Temp Pulse Resp BP Pulse Ox O2 Del Method 03/28/23 15:12 37 C 86 16 153/90 H 96 Room Air 03/28/23 07:30 36.7 C 73 16 154/94 H 97 Room Air all noted and reviewed including below (3) Hypertension Hypertension type: unspecified Qualified Code(s): I10 - Essential (primary) hypertension
[2023-03-28] MEDS: IBUPROFEN 200 MG TAB PO PRN (20:18)
[2023-03-29] MEDS: GABAPENTIN 100 MG CAP PO SCH ×2 (08:22→19:49)
[2023-03-29] MEDS: allopurinoL 100 MG TAB PO SCH ×2 (08:22→19:49)
[2023-03-29] MEDS: amLODIPine BESYLATE 5 MG TAB PO SCH (08:22)
[2023-03-29] MEDS: CYANOCOBALAMIN (B-12) 500 MCG TABLET PO SCH (08:22)
[2023-03-29] MEDS: LISINOPRIL/HCTZ 10/12.5MG TAB PO SCH (08:22)
[2023-03-29] MEDS: CHOLECALCIFEROL 1,000 UNITS 25 MCG TAB PO SCH (08:22)
[2023-03-29] MEDS: CITALOPRAM 20 MG TAB PO SCH (08:23)
[2023-03-29] MEDS: DICLOFENAC SOD 1% GEL 100 GM TUBE EXT SCH ×4 (08:23→19:49)
[2023-03-29] MEDS: ALPRAZolam 0.5 MG TABLET PO PRN (08:32)
[2023-03-29] MEDS: IBUPROFEN 200 MG TAB PO PRN ×2 (08:32→14:13)
[2023-03-29] MEDS: DAPTOmycin 350 MG in SYRINGE 0 ML IV SCH (08:33)
[2023-03-29] MEDS: ACETAMINOPHEN 325 MG TAB PO PRN (14:13)
--- NOTE | 2023-03-29 16:27 | Hospitalist Progress Note ---
Date of Service March 29, 2023 Assessment & Plan (1) Cellulitis of left knee: (2) MSSA infection, non-invasive: Plan: Per admitting service notes with addendum: - MSSA + culture from synovial fluid from 03/20 by ortho at [facility], neg Lymes testing, neg uric acid upon review of outpatient EPIC results - Pt has been on oral Keflex x 7 days (started on 03/20) and doxycycline (started on 03/12) 03/29 Venous Doppler study left lower extremity:Currently there is normal compressibility of the deep venous system from the common femoral vein through the proximal calf veins. Suprapatellar echogenic collection is seen measuring 33 x 13 x 29 mm, possibly a complex hematoma. Correlation with stream physical exam is recommended. X-ray left knee:Soft tissue swelling which may represent cellulitis, without evidence of bony involvement. Evaluated by orthopedics; no evidence of septic knee. Continue antibiotic for MSSA. On daptomycin; improvement noted on examination. Discontinue daptomycin; started on cefazolin. Awaiting IDs recommendation (3) Hypertension: Plan: - May continue home meds of lisinopril-HCTZ, amlodipine (4) Alcohol use: Plan: - Pt reports having previously used up to a [employer] daily for years-- since the possible gout flare about 1 month ago he reduced to 1-3 beers per night -- states no withdrawal symptoms and has not been drinking much beer at all because he has not felt well in the past 3 weeks. Previously quite smoking cigarettes and chewing snuff cold turkey without difficulty. - Monitor (5) Anxiety: Plan: - Cont celexa, gabapentin BID, and ativan 0.5 mg bid prn Headache Patient reports right-sided headache, intermittent CT head without contrast: Negative for acute process Continue as needed Tylenol, ibuprofen next DVT ppx: Lovenox CODE: FULL Dispo: Anticipate discharge to home medically stable Admission and Anticipated Discharge Date Admission Date: March 27, 2023 Subjective Patient seen and examined at bedside. Reports improvement in the swelling and redness of the knee. Comfortable. Afebrile overnight. Review of Systems Review of Systems: All systems reviewed & are unremarkable except as noted in Subjective Physical Exam Physical Exam: General- oriented x 3, not in distress, speaks in sentences with no effort or accessory muscle use Eyes- anicteric Neck- no JVD Lungs- clear breath sounds bilaterally, no rales/wheezes Heart- normal rate, regular rhythm; no murmurs Abdomen- normal bowel sounds, nondistended, soft, nontender Extremities- Left knee-positive fluctuant area on the patellar region, slight erythema, swelling and tenderness. no pretibial edema, no calf tenderness Neuro- alert, oriented x 3; no gross focal neurologic deficits Skin- warm & dry Results & Data Results & Data Vital Signs (Past 12 Hours) Vital Signs Temp Pulse Resp BP Pulse Ox O2 Del Method 03/29/23 15:08 36.5 C 80 20 141/81 H 97 Room Air 03/29/23 07:56 36.9 C 78 16 145/91 H 94 Room Air Laboratory Results Laboratory Results WBC 4.97 K/ul (4.8-10.8) 03/28/23 06:01 RBC 4.98 M/uL (4.70-6.10) 03/28/23 06:01 Hgb 14.9 g/dl (14.0-18.0) 03/28/23 06:01 Hct 41.7 % (42.0-52.0) L 03/28/23 06:01 MCV 83.7 fL (80.0-100.0) 03/28/23 06:01 MCH 29.9 pg (25.0-34.0) 03/28/23 06:01 MCHC 35.7 g/dL (32.0-36.0) 03/28/23 06:01 RDW Std Deviation 37.1 fL (36.4-46.3) 03/28/23 06:01 RDW Coeff of Inez 12.2 % (11.5-14.5) 03/28/23 06:01 Plt Count 166 K/uL (130-400) 03/28/23 06:01 MPV 9.9 fL (9.4-12.4) 03/28/23 06:01 Immature Gran % (Auto) 0.3 % 03/27/23 12:20 Neut % (Auto) 69.7 % 03/27/23 12:20 Lymph % (Auto) 19.6 % 03/27/23 12:20 [place] % (Auto) 8.7 % 03/27/23 12:20 Eos % (Auto) 1.3 % 03/27/23 12:20 Baso % (Auto) 0.4 % 03/27/23 12:20 Neut # (Auto) 4.64 K/uL (1.40-6.50) 03/27/23 12:20 Lymph # (Auto) 1.31 K/uL (1.2-3.4) 03/27/23 12:20 [place] # (Auto) 0.58 K/uL (0.11-0.59) 03/27/23 12:20 Eos # (Auto) 0.09 K/uL (0-0.50) 03/27/23 12:20 Baso # (Auto) 0.03 K/uL (0-0.2) 03/27/23 12:20 Immature Gran # (Auto) 0.02 K/uL (0.01-0.20) 03/27/23 12:20 ESR 5 mm/hr (0-20) 03/27/23 12:20 PT 11.2 Seconds (9.0-12.0) 03/27/23 12:20 INR 1.0 (0.9-1.1) 03/27/23 12:20 Sodium 140 mmol/L (136-145) 03/28/23 06:01 Potassium 3.6 mmol/L (3.5-5.1) 03/28/23 06:01 Chloride 103 mmol/L (98-107) 03/28/23 06:01 Carbon Dioxide 30 mmol/L (21-32) 03/28/23 06:01 Anion Gap 7 (3-11) 03/28/23 06:01 BUN 18 mg/dl (6-23) 03/28/23 06:01 Creatinine 0.90 mg/dl (0.6-1.4) 03/28/23 06:01 Est Cr Clr Drug Dosing 119.0 ml/min 03/28/23 06:01 Est GFR ( Amer) 111.8 ml/min 03/28/23 06:01 Est GFR (Non-Af Amer) 96.5 ml/min 03/28/23 06:01 BUN/Creatinine Ratio 20.0 (10-20) 03/28/23 06:01 Glucose 108 mg/dl (70-99(Fasting)) H 03/28/23 06:01 Calcium 8.9 mg/dl (8.6-10.3) 03/28/23 06:01 Total Bilirubin 0.7 mg/dl (0.2-1.0) 03/27/23 12:20 AST 20 U/L (13-39) 03/27/23 12:20 ALT 24 U/L (7-52) 03/27/23 12:20 Alkaline Phosphatase 75 U/L (34-104) 03/27/23 12:20 C-Reactive Protein < 0.50 mg/dl (0-0.5) 03/27/23 12:20 Total Protein 7.3 gm/dl (6.0-8.3) 03/27/23 12:20 Albumin 4.8 gm/dl (3.4-5.0) 03/27/23 12:20 Globulin 2.5 gm/dl (2.5-4.0) 03/27/23 12:20 Albumin/Globulin Ratio 1.9 (0.9-2) 03/27/23 12:20 Procalcitonin < 0.05 ng/ml (0-0.5) 03/27/23 12:20 SARS-CoV-2, RNA, NAAT NEGATIVE (NEGATIVE) 03/27/23 Unknown Impressions Venous Doppler Study 03/27/23 13:46 US venous doppler LE LT CLINICAL HISTORY: swelling, redness TECHNIQUE: Left lower extremity real-time compression venous ultrasound with Color Doppler imaging. Utilizing real-time ultrasonic imaging multiple real time high-resolution ultrasonic images with compression and noncompression maneuvers of the deep venous system in addition to color doppler imaging were performed from the common femoral vein through the proximal calf veins. COMPARISON: None available at the time of this dictation. FINDINGS/IMPRESSION: Currently there is normal compressibility of the deep venous system from the common femoral vein through the proximal calf veins. Suprapatellar echogenic collection is seen measuring 33 x 13 x 29 mm, possibly a complex hematoma. Correlation with stream physical exam is recommended. ACT 112: Negative or not required by law. Electronically signed by: Abner Elaine M.D. 03/27/2023 2:28 PM Knee X-Ray 03/27/23 15:32 XR knee LT 1 or 2V routine CLINICAL HISTORY: Eval for MSSA bony involvement TECHNIQUE: 2 views of the left knee were obtained. Comparison: Comparison is made to knee radiograph 06/03/2013 FINDINGS: There is no evidence of an acute fracture or focal erosion. Joint spaces are well-preserved. No joint effusion is seen. Soft tissue swelling is seen. IMPRESSION: Soft tissue swelling which may represent cellulitis, without evidence of bony involvement. ACT 112: Negative or not required by law. Electronically signed by: Abner Elaine M.D. 03/27/2023 4:[address] 03/28/23 16:13 CT SCAN OF THE BRAIN WITHOUT IV CONTRAST CLINICAL HISTORY: Headache. COMPARISON STUDY: No priors. TECHNIQUE: Unenhanced axial CT scan of the brain is performed from the vertex to the skull base. A dose lowering technique was utilized adhering to the principles of ALARA. CT DOSE: 625.80 mGy.cm FINDINGS: Brain parenchyma: The brain parenchyma is normal in appearance. There is no hemorrhage, mass effect, or evidence of acute territorial ischemia by CT criteria. Boss-white matter differentiation is preserved. No extra-axial fluid collection is seen. Ventricles, sulci, cisterns: Normal in configuration. Intracranial vasculature: The visualized intracranial vasculature at the skull base is normal in appearance. Calvarium: Unremarkable. Sinuses and mastoids: The visualized paranasal sinuses are clear. The mastoid air cells are well pneumatized. Orbits: The bony orbits are grossly intact. IMPRESSION: No acute intracranial abnormality. ACT 112: Negative or not required by law. Electronically signed by: Garfield Hebert M.D. 03/28/2023 4:41 PM (3) Hypertension Hypertension type: unspecified Qualified Code(s): I10 - Essential (primary) hypertension
[2023-03-29] MEDS: ceFAZolin 2000MG 2,000 MG/15 ML SYR IV SCH (17:05)
[2023-03-29] MEDS: HYDROCODONE/ACETAMOPHEN 5/325MG TAB PO PRN (17:05)
[2023-03-30] MEDS: ceFAZolin 2000MG 2,000 MG/15 ML SYR IV SCH ×2 (00:02→08:12)
[2023-03-30] MEDS: HYDROCODONE/ACETAMOPHEN 5/325MG TAB PO PRN ×2 (00:02→11:31)
[2023-03-30 07:02] LABS: Basophils # (auto) 0.04 K/uL (0-0.2); Basophils % (auto) 0.7 %; Eosinophils % (auto) 3.5 %; Hemoglobin 15.4 g/dl (14.0-18.0); Immature Granulocytes # (auto) 0.02 K/uL (0.01-0.20); Immature Granulocytes % (auto) 0.4 %; Lymphocytes # (auto) 1.35 K/uL (1.2-3.4); Lymphocytes % (auto) 23.9 %; Mean Corpuscular Volume 85.6 fL (80.0-100.0); Mean Platelet Volume 9.6 fL (9.4-12.4); Monocytes # (auto) 0.68 K/uL (0.11-0.59); Neutrophils # (auto) 3.36 K/uL (1.40-6.50); Neutrophils % (auto) 59.5 %; Platelet Count 163 K/uL (130-400); RDW Coefficient of Variation 12.4 % (11.5-14.5); RDW Standard Deviation 38.6 fL (36.4-46.3); Red Blood Count 5.14 M/uL (4.70-6.10); White Blood Count 5.65 K/ul (4.8-10.8)
[2023-03-30 07:26] LABS: Anion Gap 4 (3-11); BUN Creatinine Ratio 17.2 (10-20); Blood Urea Nitrogen 16 mg/dl (6-23); C Reactive Protein < 0.50 mg/dl (0-0.5); Calcium 8.9 mg/dl (8.6-10.3); Carbon Dioxide 31 mmol/L (21-32); Chloride 105 mmol/L (98-107); Creatinine Clr Calc Pharmacy 115.2 ml/min; Est GFR (African American) 107.5 ml/min; Est GFR (Non-African American) 92.7 ml/min; Glucose 106 mg/dl (70-99(Fasting)); Potassium 3.9 mmol/L (3.5-5.1); Sodium 140 mmol/L (136-145)
[2023-03-30] MEDS: DICLOFENAC SOD 1% GEL 100 GM TUBE EXT SCH ×2 (08:12→11:32)
[2023-03-30] MEDS: GABAPENTIN 100 MG CAP PO SCH (08:13)
[2023-03-30] MEDS: CITALOPRAM 20 MG TAB PO SCH (08:13)
[2023-03-30] MEDS: LISINOPRIL/HCTZ 10/12.5MG TAB PO SCH (08:14)
[2023-03-30] MEDS: CHOLECALCIFEROL 1,000 UNITS 25 MCG TAB PO SCH (08:14)
[2023-03-30] MEDS: amLODIPine BESYLATE 5 MG TAB PO SCH (08:14)
[2023-03-30] MEDS: allopurinoL 100 MG TAB PO SCH (08:14)
[2023-03-30] MEDS: CYANOCOBALAMIN (B-12) 500 MCG TABLET PO SCH (08:15)
[2023-03-30] MEDS ORDERED: ENOXAPARIN INJ 40 MG/0.4 ML SYR SQ SCH (09:00)
--- NOTE | 2023-03-30 15:09 | Discharge Summary ---
Date of Service March 30, 2023 Admission HPI Per Admitting Provider This is a 53-year-old male with PMHx of HTN, HLD, and TRUNG with CPAP, BEBO, previous alcohol abuse and previous remote smoking and chewing use, who presents to the hospital after being referred by his PCP today. Patient has been being treated as an outpatient for approximately the last 4 weeks for left knee erythema and swelling. Pt recalls around 02/25 he bumped the outside of his left side of his knee at work which developed a small area of a scab, and had residual lower leg puffiness and redness thereafter . He was seen on 03/03 by his PCP initially due to redness, swelling, pain as well as difficulty bending his knee. Possibility of Lymes led course of doxycycline, however his Lyme's titers are negative. Knee did not improve with doxy alone. Pt was prescribed colchicine for possible gout flare without improvement, however uric acid levels are low. He had a synovial fluid aspiration done on 03/20 by Ortho at [facility] which grew out MSSA. Keflex was added to doxycycline for coverage and has been taking this for the past week. Patient has had intermittent fevers on and off throughout this course, and reports that he generally does not feel well. Leg continues to be erythematous and swollen in the pretibial region of the left leg. He presents to the hospital for treatment of such and for failure of outpatient antibiotics. Last fever was several weeks ago, he has not had a fever since being on cephalexin. The highest his fever was was 103. He is able to bear weight, can bend his knee, but still reports having dependent edema. Admission Exam Per Admitting Provider General: awake, alert, no apparent distress Head: Normocephalic, atraumatic ENT: PERRL, EOMI, no pharyngeal exudate, mucous membranes moist Chest: Clear to auscultation, on room air, no adventitious breath sounds Cardiac: Regular rate and rhythm, no murmur, no JVD, normal peripheral pulses, good capillary refill Abdominal: NABS x 4 quadrants, soft, nondistended, nontender to palpation, no rebound or guarding Extremities: Left knee pretibial region is edematous with obvious enlargement, erythema, and tenderness over the lateral aspect with palpation, no joint line pain, pt is able to bend the knee with full ROM, + 1+ pitting edema of LLE. Other extremities with normal inspection, no right peripheral edema or erythema, calfs nontender to palpation Psych: Normal mood and affect Neuro: AAO x 3, strength intact bilaterally and rated 5/5, no motor deficits, speech is clear, no peripheral sensory deficits Principal Diagnosis MSSA septic bursitis Discharge Exam General- oriented x 3, not in distress, speaks in sentences with no effort or accessory muscle use Eyes- anicteric Neck- no JVD Lungs- clear breath sounds bilaterally, no rales/wheezes Heart- normal rate, regular rhythm; no murmurs Abdomen- normal bowel sounds, nondistended, soft, nontender Extremities- Left knee-positive fluctuant area on the patellar region, slight erythema, swelling and tenderness. no pretibial edema, no calf tenderness Neuro- alert, oriented x 3; no gross focal neurologic deficits Skin- warm & dry Discharge Data Allergies Allergy/AdvReac Type Severity Reaction Status Date / Time No Known Allergies Allergy Verified 03/27/23 15:21 Consultations 03/27/23 15:01 ED Decision to Admit Stat 03/27/23 15:32 Consult Infectious Diseases Routine 03/28/23 10:34 Consult Orthopedic Surgery Routine Ordered Studies 03/27/23 13:46 US venous duplex leg [US venous doppler LE LT] Stat 03/28/23 16:13 CT head/brain wo con Stat Hospital Course (1) Cellulitis of left knee: (2) Prepatellar bursitis: (3) MSSA infection, non-invasive: Patient is a 53-year-old male with PMHx of HTN, HLD, and TRUNG with CPAP, BEBO, who presented to his primary care doctor on March 03 with redness, swelling, pain and difficulty bending his knee. Patient was prescribed doxycycline for suspicion of cellulitis. Lyme test was negative and uric acid was within normal limits. Patient was then seen by orthopedic on March 20; underwent aspiration of the prepatellar bursa which grew MSSA for which was given Keflex. Patient presented to the ED with complaint of ongoing erythema and swelling of the knee. Patient was treated with IV antibiotics; initially daptomycin and later switched to cefazolin. Patient showed signs of improvement the course of the hospitalization. Orthopedic consultation was done; no concern for septic arthritis Patient ESR and CRP were checked; not elevated Infectious disease consultation was done; Patient was discharged on 4 more days of oral antibiotic. Follow-up with PCP scheduled. Please note the above document was generated using voice recognition software. It may contain grammatical, syntax or spelling errors. Any formal questions or concerns about the content, text or information contained within the body of this dictation should be directly addressed to the provider for clarification Total Time Total Time Spent Total Time Spent (In Minutes): 45 Total Time Includes: Examination of the Patient, Discharge Planning, Medication Reconciliation, Communication With Other Providers and Other Discharge Plan Discharge Items Patient Disposition: Home - Self-Care Reason For Visit: MSSA INFECTION Discharge Diagnosis: (1) Cellulitis of left knee: (2) MSSA infection, non-invasive: Activity: Resume your previous activity Non-emergency contact: Primary Care Provider Call non-emergency contact if: you have any medication questions Follow-up/Referrals: Ta Last MD [Primary Care Provider] - (Date & Time 04/05/2023 11:20 AM Provider Fany Naranjo MD Department General Internal Medicine [facility] ) Diet: Regular Addtl Attending Provider Instructions: You were admitted to the hospital with infection of the bursa. You are prescribed dicloxacillin 500 mg to be taken every 6 hours for 3 more days. Please follow the instruction below: * Rest the affected area. Avoid any activity or direct pressure that may cause pain. * Apply ice or cold packs . Apply ice 10 to 15 minutes at a time, as often as twice an hour, for 3 days (72 hours). You can try heat, or alternating heat and ice, after the first 72 hours. * Do [id number] exercises each day. This will prevent stiffness. As the pain goes away, add other exercises to strengthen the muscles around your joint. * Avoid tobacco smoke. Smoking delays wound and tissue healing. Pending Studies at Discharge: No Stand-Alone Forms: [employer], Smoking Cessation Medications and DC Order Prescriptions: New dicloxacillin 500 mg capsule 500 mg PO Q6H 3 Days Qty: 12 0RF Continued alprazolam 0.5 mg Tablet 0.5 mg PO BID PRN (Reason: Anxiety) citalopram 10 mg Tablet 10 mg PO QAM cyanocobalamin (vitamin B-12) [Vitamin B-12] 1,000 mcg Tablet 1,000 mcg PO DAILY amlodipine 5 mg Tablet 5 mg PO QAM flaxseed oil 1,000 mg Capsule 1,000 mg PO DAILY cholecalciferol (vitamin D3) [Vitamin D3] 1,000 unit Capsule 3,000 unit PO DAILY red yeast rice 600 mg Capsule 600 mg PO DAILY lisinopril-hydrochlorothiazide 10-12.5 mg Tablet 2 tab PO QAM oxycodone 5 mg Tablet 5 - 10 mg PO Q4H PRN (Reason: pain) Qty: 15 0RF Rx Instructions: 5mg for pain 1-5 10 mg for pain 6-10 allopurinol 100 mg tablet 100 mg PO BID lorazepam 0.5 mg tablet 0.5 mg PO Q8H PRN (Reason: Anxiety) gabapentin 100 mg capsule 100 mg PO BID colchicine 0.6 mg tablet 0.6 mg PO QAM diclofenac sodium 1 % gel 2 g TOPICAL QID Discontinued doxycycline hyclate 100 mg capsule 100 mg PO BID Rx Instructions: Start Date 03/12/23 - End Date 03/26/23 (Pt states he has 2-3 capsules left) Discharge Orders: Discharge Order (Routine); Ordered 03/30/23 Ordered By: Shorty Medrano/Other Patient Handouts: Controlling High Blood Pressure, Cellulitis Dc Admission Data Admit Date/Time: 03/27/23 15:32 Attending Provider: Shorty Myrick Admit Provider: Robyn Michel Primary Care Provider: Ta Last Other Providers: Pepe Levine ; Jovanna Long ; Tien Chan I. ; Suhas Beltre II ; Obdulia Renteria ; Timur Denis ; Hans Ferraro ; Lizzie Bean ; Robyn Michel ; Troy Morgan ; Jameel Castillo Other Interventions: Discharge Summary Assessment (RN) Last Done: 03/30/23 10:41
== END 2023-03-30 14:42 | disposition home or self-care (01) | DRG 603 ==
LOC: ED 11:32 → EDINP 15:32 → SUATTDRO 15:32 → 3W 19:58

== ENCOUNTER 2024-01-17 14:42 | Inpatient (IN) ==
--- NOTE | 2024-01-17 14:50 | ED Triage Note ---
Date of Service January 17, 2024 Provider in Triage Author: Danae Fraga History of Present Illness This patient was briefly evaluated while in triage. An abbreviated physical exam was performed. This patient is a 53-year-old Male who presents to the ED for evaluation of known PE on CT scan this morning. Pt reports SHOB, midsternal chest pain. CT scan at [facility]. Physical Exam Initial orders for labs and / or imaging were placed and patient was placed in the waiting area until a bed is available. Please see further documentation for the full ED course. MDM / Impression Impression Impression: Pulmonary embolism Impression: Pulmonary embolism Qualifiers: Pulmonary embolism type: unspecified Chronicity: acute Acute cor pulmonale presence: unspecified Qualified Code(s): I26.99 - Other pulmonary embolism without acute cor pulmonale
--- NOTE | 2024-01-17 15:06 | Emergency Department Note ---
Impression & Plan Pulmonary embolism ED Provider Note NAME: ABISAI SAN AGE: 53 SEX: M : 1970 ARRIVES VIA: Walk-In INFORMANT: Patient, ED PROVIDER(S): Javon Jacob DO CHIEF COMPLAINT: Dyspnea on exertion HPI: Patient is a 53-year-old male who presented to the emergency department for evaluation of dyspnea on exertion. The patient has a history of a dilated aortic root. The patient had an outpatient CAT scan of the chest today. He was called and told to go to the emergency department because he had a CT that showed an acute segmental pulmonary embolism of the right upper and middle pulmonary arteries. The patient denies having any chest pain. He denies having any leg swelling greater than usual. He does state that he has been having some shortness of breath especially with exertion over the last few weeks. The patient states he was called by his family doctor about the CT. He was told to come to the emergency department to be admitted. ROS: See above HPI for pertinent positives & negatives. A total of 10 systems reviewed and were otherwise negative. PAST MEDICAL HISTORY: See Below PAST SURGICAL HISTORY: See Below FAMILY HISTORY: See Below SOCIAL HISTORY: See Below HOME MEDICATIONS: See Below ALLERGIES: See Below VITALS: See Below PHYSICAL EXAMINATION: GENERAL: Patient is awake alert in no acute distress patient is resting comfortably and showing no signs of anxiety EYES: The conjunctivae are clear. The pupils are round and reactive. EARS, NOSE, MOUTH AND THROAT: The nose is without any evidence of any deformity. NECK: The neck is nontender and supple. RESPIRATORY: Normal respiratory effort is noted there is no evidence of wheezing rhonchi or rales CARDIOVASCULAR: Regular rate and rhythm noted there no murmurs rubs or gallops normal S1 normal S2. GASTROINTESTINAL: The abdomen is soft. Abdomen is nontender. MUSCULOSKELETAL/EXTREMITIES: There is no evidence of gross deformity full range of motion is noted in the hips and shoulders. SKIN: There is no obvious evidence of any rash. There are no petechiae, pallor or cyanosis noted. NEUROLOGIC: Patient is awake alert and oriented x3 MEDICAL DECISION MAKING: The patient is a 53-year-old male who presented to the emergency department for shortness of breath with exertion. The patient was found to have a pulmonary embolism on CT. The patient has a history of an enlarged aortic root. He was having a routine follow-up for this when he had a CT as an outpatient that showed a pulmonary embolism. The patient was not tachycardic. Oxygen saturation was acceptable but low normal. I discussed the patient's laboratory and radiographic studies with him. [facility] I decided to allow them the opportunity to choose anticoagulation as the patient did not appear to have any signs of hypotension tachycardia or elevated troponin. Ultrasound of lower extremities did not show any signs of DVT. Triage Nursing notes reviewed. Prior medical records reviewed Vital Signs: reviewed and remarkable for no significant abnormalities Differential diagnosis: Cardiac ischemia, aortic dissection, pulmonary embolism, pneumothorax, pneumonia, pericarditis, myocarditis, esophageal rupture, GERD, cholecystitis, pancreatitis, musculoskeletal, as well as other pathologies. ER treatment provided: See below Diagnostics interpreted by me: ECG: EKG was obtained in the emergency department. My interpretation is normal sinus rhythm at 73 bpm. There is no ectopy. There was no acute ST segment abnormalities noted. This was compared to a tracing from November 16, 2018. No changes were noted. Cardiac Monitoring: An order was placed for continuous cardiac monitoring. The monitor shows a rate of 80 bpm with sinus rhythm. Laboratory studies: As stated above and show below. Imaging studies: See below. Consultation(s): I discussed this case with Dr. Negro who is on-call for the [facility] hospitalist group. Past Med/Surg History Medical History Cellulitis of left knee GERD (gastroesophageal reflux disease) hypergastrocolic reflux Depression Anxiety Sleep apnea has since lost 45 lbs - no problems now. 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 Hypertension 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 History of carpal tunnel release right History of colonoscopy Family History Other No family history of adverse response to anesthesia No pertinent family history in first degree relatives Social History Smoking Status: Never smoker Cigarettes Per Day: 1 ppd x 14 years; Second Hand Exposure: No; Do You Dip or Chew Tobacco: No (quit chew tobacco 10/2014); Hx Alcohol Use: Yes (decreased alcohol intake significantly in January 2023) Alcohol type: beer Hx Substance Use: No Preferred Language: Japanese Communication Ability: Effective Cordwood Cutter Required: No Beliefs That Will Affect Care: None Current Living Situation: Spouse Feels Safe at Home: Yes Assistive Devices: None Allergies Allergies Allergy/AdvReac Type Severity Reaction Status Date / Time No Known Allergies Allergy Verified 01/17/24 17:39 Home Meds Home Medications Medication Instructions Recorded Confirmed amlodipine 5 mg tablet 5 mg PO QAM 01/28/19 01/17/24 cholecalciferol (vitamin D3) 25 1,000 unit PO DAILY 01/28/19 01/17/24 mcg (1,000 unit) capsule (Vitamin D3) cyanocobalamin (vitamin B-12) 1,000 mcg PO DAILY 01/28/19 01/17/24 1,000 mcg tablet (Vitamin B-12) flaxseed oil 1,000 mg capsule 1,000 mg PO DAILY 01/28/19 01/17/24 red yeast rice 600 mg capsule 1,200 mg PO DAILY 01/28/19 01/17/24 allopurinol 100 mg tablet 100 mg PO BID 03/27/23 01/17/24 diclofenac sodium 1 % topical gel 2 g topical QID PRN Pain 03/27/23 01/17/24 gabapentin 100 mg capsule See Rx Instructions .Route .COMPLEX 03/27/23 01/17/24 lisinopril 20 2 tab PO DAILY 05/05/23 01/17/24 mg-hydrochlorothiazide 12.5 mg tablet acetaminophen 325 mg tablet 650 mg PO Q6H PRN Pain 01/17/24 01/17/24 (Tylenol) buspirone 15 mg tablet See Rx Instructions .Route .COMPLEX 01/17/24 01/17/24 citalopram 40 mg tablet 40 mg PO QAM 01/17/24 01/17/24 fluticasone propionate 50 1 spray intranasal DAILY 01/17/24 01/17/24 mcg/actuation nasal spray,suspension ibuprofen 200 mg tablet 200 - 800 mg PO Q6H PRN Pain 01/17/24 01/17/24 lorazepam 1 mg tablet 0.5 mg PO Q8H PRN Anxiety 01/17/24 01/17/24 metoprolol succinate 25 mg 25 mg PO QAM 01/17/24 01/17/24 tablet,extended release 24 hr Results & Data (ED) Vital Signs Vital Signs - 24 hr 01/17/24 14:47 01/17/24 15:03 01/17/24 15:04 Temperature 36.7 C Temperature Source Temporal Artery Scan Pulse Rate 90 76 Pulse Rate [Apical] Pulse Rate from SpO2 Sensor 76 Respiratory Rate 18 23 Respiratory Effort / Characteristics Non-Labored Spontaneous Respiratory Depth Normal Blood Pressure 123/77 137/88 Blood Pressure [Right Arm] Blood Pressure Mean 92 112 Blood Pressure Mean [Right Arm] Blood Pressure Position Sitting Pulse Oximetry 94 94 Oxygen Delivery Method Room Air Sepsis Recent Fever Within 48 Hours No Sepsis New/Unexplained Change in Mental Status No Sepsis Action Taken by Nursing No Action Required 01/17/24 15:06 01/17/24 15:06 01/17/24 15:30 Temperature Temperature Source Pulse Rate 73 Pulse Rate [Apical] 74 Pulse Rate from SpO2 Sensor 73 Respiratory Rate 20 13 Respiratory Effort / Characteristics Non-Labored Respiratory Depth Normal Blood Pressure Blood Pressure [Right Arm] 137/88 Blood Pressure Mean Blood Pressure Mean [Right Arm] 104 Blood Pressure Position Pulse Oximetry 96 92 94 Oxygen Delivery Method Room Air Room Air Sepsis Recent Fever Within 48 Hours Sepsis New/Unexplained Change in Mental Status Sepsis Action Taken by Nursing 01/17/24 15:51 01/17/24 16:00 01/17/24 16:46 Temperature Temperature Source Pulse Rate 76 76 71 Pulse Rate [Apical] Pulse Rate from SpO2 Sensor 76 73 Respiratory Rate 22 22 Respiratory Effort / Characteristics Respiratory Depth Blood Pressure Blood Pressure [Right Arm] Blood Pressure Mean Blood Pressure Mean [Right Arm] Blood Pressure Position Pulse Oximetry 95 92 Oxygen Delivery Method Sepsis Recent Fever Within 48 Hours Sepsis New/Unexplained Change in Mental Status Sepsis Action Taken by Nursing 01/17/24 17:00 Temperature Temperature Source Pulse Rate 80 Pulse Rate [Apical] Pulse Rate from SpO2 Sensor Respiratory Rate 18 Respiratory Effort / Characteristics Respiratory Depth Blood Pressure Blood Pressure [Right Arm] Blood Pressure Mean Blood Pressure Mean [Right Arm] Blood Pressure Position Pulse Oximetry Oxygen Delivery Method Sepsis Recent Fever Within 48 Hours Sepsis New/Unexplained Change in Mental Status Sepsis Action Taken by [facility] Medications Current Medication List: was personally reviewed by me Laboratory Data Attestation: I reviewed the patient's lab results. 01/17/24 15:04 01/17/24 15:04 Lab Results 01/17/24 01/17/24 Range/Units 15:04 16:02 WBC 6.42 (4.8-10.8) K/ul RBC 5.15 (4.70-6.10) M/uL Hgb 15.5 (14.0-18.0) g/dl Hct 44.4 (42.0-52.0) % MCV 86.2 (80.0-100.0) fL MCH 30.1 (25.0-34.0) pg MCHC 34.9 (32.0-36.0) g/dL RDW Std Deviation 36.2 L (36.4-46.3) fL RDW Coeff of Inez 11.6 (11.5-14.5) % Plt Count 214 (130-400) K/uL MPV 9.8 (9.4-12.4) fL Immature Gran % (Auto) 0.5 % Neut % (Auto) 63.9 % Lymph % (Auto) 21.0 % Cedar % (Auto) 12.0 % Eos % (Auto) 2.0 % Baso % (Auto) 0.6 % Neut # (Auto) 4.10 (1.40-6.50) K/uL Lymph # (Auto) 1.35 (1.20-3.40) K/uL Cedar # (Auto) 0.77 H (0.11-0.59) K/uL Eos # (Auto) 0.13 (0.00-0.50) K/uL Baso # (Auto) 0.04 (0.00-0.20) K/uL Immature Gran # (Auto) 0.03 (0.01-0.20) K/uL PT 10.5 (9.0-12.0) Seconds INR 1.0 (0.9-1.1) APTT 24 (21-31) Seconds PTT Ratio 0.9 Sodium 136 (136-145) mmol/L Potassium 3.6 (3.5-5.1) mmol/L Chloride 98 (98-107) mmol/L Carbon Dioxide 28 (21-32) mmol/L Anion Gap 10 (3-11) BUN 15 (6-23) mg/dl Creatinine 1.02 (0.6-1.4) mg/dl Est Cr Clr Drug Dosing 107.3 ml/min Est GFR ( Amer) 96.1 ml/min Est GFR (Non-Af Amer) 82.9 ml/min BUN/Creatinine Ratio 14.7 (10-20) Glucose 149 H (70-99(Fasting)) mg/dl Calcium 9.2 (8.6-10.3) mg/dl Total Bilirubin 0.4 (0.2-1.0) mg/dl AST 20 (13-39) U/L ALT 30 (7-52) U/L Alkaline Phosphatase 72 (34-104) U/L Troponin I High Sens 3.9 (0-20) pg/ml Total Protein 6.9 (6.0-8.3) gm/dl Albumin 4.6 (3.4-5.0) gm/dl Globulin 2.3 L (2.5-4.0) gm/dl Albumin/Globulin Ratio 2.0 (0.9-2) Lipase 62 (11-82) U/L Urine Color Yellow Urine Appearance Clear (Clear) Urine pH 6.5 (4.5-7.5) Ur Specific [place] 1.019 (1.000-1.030) Urine Protein Negative (Negative) Urine Glucose (UA) Negative (Negative) Urine Ketones Negative (Negative) Urine Blood Negative (Negative) Urine Nitrite Negative (Negative) Urine Bilirubin Negative (Negative) Urine Urobilinogen Negative (Negative) Ur Leukocyte Esterase Negative (Negative) Imaging Data Radiologist's Impression: Venous Doppler Study 01/17/24 15:03 BILATERAL LOWER EXTREMITY VENOUS DOPPLER HISTORY: History of pulmonary embolus. Assess for DVT. COMPARISON STUDY: None. FINDINGS: There is normal compressibility, flow, and augmentation within the bilateral lower extremity deep venous systems. IMPRESSION: No DVT within the right or left lower extremity. ACT 112: Negative or not required by law. Electronically signed by: Keshav Winter M.D. 01/17/2024 5:01 PM Discharge Plan Visit Data Chief Complaint: Referred by Doctor Stated Complaint: BLOOD CLOT IN LUNG, SOB, REF BY DOC ED Provider: Javon Jacob Discharge Problem: Pulmonary embolism Patient Disposition: Being Evaluated by Hospitalist Forms Stand Alone Forms: [employer] Prescriptions Prescriptions: No Action cyanocobalamin (vitamin B-12) [Vitamin B-12] 1,000 mcg Tablet 1,000 mcg PO DAILY amlodipine 5 mg Tablet 5 mg PO QAM flaxseed oil 1,000 mg Capsule 1,000 mg PO DAILY cholecalciferol (vitamin D3) [Vitamin D3] 1,000 unit Capsule 1,000 unit PO DAILY red yeast rice 600 mg Capsule 1,200 mg PO DAILY allopurinol 100 mg tablet 100 mg PO BID gabapentin 100 mg capsule See Rx Instructions .ROUTE .COMPLEX Rx Instructions: TAKES 200 MG QAM, THEN 200 MG IN THE AFTERNOON AND 300 MG QHS. diclofenac sodium 1 % gel 2 g TOPICAL QID PRN (Reason: Pain) lisinopril-hydrochlorothiazide 20-12.5 mg tablet 2 tab PO DAILY acetaminophen [Tylenol] 325 mg Tablet 650 mg PO Q6H PRN (Reason: Pain) citalopram 40 mg tablet 40 mg PO QAM ibuprofen 200 mg Tablet 200 - 800 mg PO Q6H PRN (Reason: Pain) metoprolol succinate 25 mg tablet extended release 24 hr 25 mg PO QAM lorazepam 1 mg tablet 0.5 mg PO Q8H PRN (Reason: Anxiety) fluticasone propionate [Flonase] 50 mcg/actuation [place],Suspension 1 spray INTRANASAL DAILY Rx Instructions: administer into each nostril buspirone 15 mg tablet See Rx Instructions .ROUTE .COMPLEX Rx Instructions: TAKES 30 MG QAM, THEN 15 MG QHS Referrals Referrals: Ta Last MD [Primary Care Provider] - Discharge Problem: Pulmonary embolism Qualifiers: Pulmonary embolism type: unspecified Chronicity: acute Acute cor pulmonale presence: unspecified Qualified Code(s): I26.99 - Other pulmonary embolism without acute cor pulmonale
[2024-01-17 15:51] LABS: Basophils # (auto) 0.04 K/uL (0.00-0.20); Basophils % (auto) 0.6 %; Eosinophils # (auto) 0.13 K/uL (0.00-0.50); Hematocrit (blood only) 44.4 % (42.0-52.0); Hemoglobin 15.5 g/dl (14.0-18.0); Immature Granulocytes # (auto) 0.03 K/uL (0.01-0.20); Immature Granulocytes % (auto) 0.5 %; Lymphocytes # (auto) 1.35 K/uL (1.20-3.40); Mean Corpuscular Hemoglobin 30.1 pg (25.0-34.0); Mean Corpuscular Hgb Conc 34.9 g/dL (32.0-36.0); Mean Corpuscular Volume 86.2 fL (80.0-100.0); Mean Platelet Volume 9.8 fL (9.4-12.4); Monocytes # (auto) 0.77 K/uL (0.11-0.59); Neutrophils % (auto) 63.9 %; Platelet Count 214 K/uL (130-400); RDW Coefficient of Variation 11.6 % (11.5-14.5); RDW Standard Deviation 36.2 fL (36.4-46.3); Red Blood Count 5.15 M/uL (4.70-6.10); White Blood Count 6.42 K/ul (4.8-10.8)
[2024-01-17 16:00] LABS: Albumin Level 4.6 gm/dl (3.4-5.0); BUN Creatinine Ratio 14.7 (10-20); Bilirubin,Total 0.4 mg/dl (0.2-1.0); Calcium 9.2 mg/dl (8.6-10.3); Creatinine Clr Calc Pharmacy 107.3 ml/min; Est GFR (African American) 96.1 ml/min; Est GFR (Non-African American) 82.9 ml/min; Globulin 2.3 gm/dl (2.5-4.0); Total Protein 6.9 gm/dl (6.0-8.3); Troponin I High Sensitivity 3.9 pg/ml (0-20)
[2024-01-17 16:05] LABS: Partial Thromboplastin Ratio 0.9; Partial Thromboplastin Time 24 Seconds (21-31); Prothrombin Time 10.5 Seconds (9.0-12.0)
[2024-01-17 16:16] LABS: Potassium 3.6 mmol/L (3.5-5.1)
[2024-01-17 16:24] LABS: Appearance Urine Clear (Clear); Bilirubin Urine Negative (Negative); Blood Urine Negative (Negative); Color Urine Yellow; Glucose Urine UA Negative (Negative); Ketones Urine Negative (Negative); Leukocyte Esterase Urine Negative (Negative); Nitrite Urine Negative (Negative); Protein Urine Negative (Negative); Specific Gravity Urine 1.019 (1.000-1.030); Urobilinogen Urine Negative (Negative); pH Urine 6.5 (4.5-7.5)
--- NOTE | 2024-01-17 16:35 | Electrocardiogram Report ---
Test Reason : Blood Pressure : / mmHG Vent. Rate : 073 BPM Atrial Rate : 073 BPM P-R Int : 156 ms QRS Dur : 086 ms QT Int : 378 ms P-R-T Axes : 003 030 046 degrees QTc Int : 416 ms Normal sinus rhythm Poor R wave progression, consider anterior DC vs. lead placement vs. LVH Abnormal ECG When compared with ECG of 16-NOV-2018 02:06, No significant change was found Confirmed by Javon Sorto ([id number]) on 01/17/2024 4:34:44 PM Referred By: Confirmed By:Javon Sorto
--- NOTE | 2024-01-17 17:02 | Ultrasound Report ---
BILATERAL LOWER EXTREMITY VENOUS DOPPLER HISTORY: History of pulmonary embolus. Assess for DVT. COMPARISON STUDY: None. FINDINGS: There is normal compressibility, flow, and augmentation within the bilateral lower extremit y deep venous systems. IMPRESSION: No DVT within the right or left lower extremity. ACT 112: Negative or not required by law. Electronically signed by: Keshav Winter M.D. 01/17/2024 5:01 PM
--- NOTE | 2024-01-17 18:09 | History & Physical Report ---
Date of Service January 17, 2024 Assessment & Plan (1) Pulmonary embolism: Plan Pt is a 53yoM with PMHx significant for HTN, HLD, TRUNG with CPAP, BEBO, alcohol abuse (states he quit end on November 2023) and previous smoking and chewing use who was referred by his PCP to the ED with PE noted on outpatient imaging. CTA Chest Non Coronary with Contrast 01/17/24 IMPRESSION: Acute segmental pulmonary embolus in the right upper and middle pulmonary arteries. Note this exam was not timed off the pulmonary arteries and was performed to assess an aortic aneurysm. Recommend referral to ER for further evaluation given patient's clinical symptoms were compatible with dyspnea on exertion. Trileaflet aortic valve with ectasia of the aortic root measuring up to 41 millimeters. Possible left lateral 4th through 6th rib fractures (obscured by respiratory motion). Correlation with clinical history of trauma and point tenderness is recommended. Pulmonary Emboli Dilated Aortic Root Pt with dilated aortic root and gets frequent imaging He notes he has been having dyspnea on exertion and PCP ordered an echo and followed up with this CT Had CT done today which noted the above findings, PE in right upper and middle pulmonary arteries. Pt notes no recent travel but notes he has been more sedentary after losing his job in the winter Also notes strong family Hx with mother passing from PEs Doppler US done in the ED with no noted DVTs bilaterally Currently asymptomatic though he notes dyspnea on exertion sometimes pt hemodynamically stable Dilated root on imaging stable Echo ordered to assess for heart strain Started on Heparin drip, consider transition to DOAC and followup outpt for genetic testing Chronic Alcohol Use Notes he quit drinking end of November 2023 At risk AWSS protocol ordered TRUNG cpap qhs Continue other home meds as ordered Diet: HH DVT prophylaxis: Heparin drip History of Present Illness Chief Complaint: PE Primary Care Provider: Ta Last MD Pt is a 53yoM with PMHx significant for HTN, HLD, TRUNG with CPAP, BEBO, alcohol abuse (states he quit end on November 2023) and previous smoking and chewing use who was referred by his PCP to the ED with PE noted on outpatient imaging. Pt with dilated aortic root and gets frequent imaging. He notes he has also been having dyspnea on exertion and PCP ordered an echo and followed up with a CT chest which he had completed today for a dilated aortic root. That CT noted pulmonary emboli and he states he was advised to present to the ED for further evaluation. Had CT done today which noted the above findings, PE in right upper and middle pulmonary arteries. Pt notes no recent travel but notes he has been more sedentary after losing his job in the winter. Also notes strong family Hx with mother passing from [facility]. Denies any associated SOB currently though he notes dyspnea on exertion sometimes. Denies chest pain or palpitations. States occasionally gets lower extremity swelling. States he used to drink 1/5 of alcohol heavily for some time but quit drinking at the end of November. He notes he still has an occasional beer but quit drinking heavy liquor. Notes a smoking Hx and chewing history for many years stopped in 1999. Allergies Allergy/AdvReac Type Severity Reaction Status Date / Time No Known Allergies Allergy Verified 01/17/24 17:39 Home Medications Medication Instructions Recorded Confirmed Type amlodipine 5 mg tablet 5 mg PO QAM 01/28/19 01/17/24 History cholecalciferol (vitamin D3) 25 1,000 unit PO DAILY 01/28/19 01/17/24 History mcg (1,000 unit) capsule (Vitamin D3) cyanocobalamin (vitamin B-12) 1,000 mcg PO DAILY 01/28/19 01/17/24 History 1,000 mcg tablet (Vitamin B-12) flaxseed oil 1,000 mg capsule 1,000 mg PO DAILY 01/28/19 01/17/24 History red yeast rice 600 mg capsule 1,200 mg PO DAILY 01/28/19 01/17/24 History allopurinol 100 mg tablet 100 mg PO BID 03/27/23 01/17/24 History diclofenac sodium 1 % topical gel 2 g topical QID PRN Pain 03/27/23 01/17/24 History gabapentin 100 mg capsule See Rx Instructions .Route .COMPLEX 03/27/23 01/17/24 History lisinopril 20 2 tab PO DAILY 05/05/23 01/17/24 History mg-hydrochlorothiazide 12.5 mg tablet acetaminophen 325 mg tablet 650 mg PO Q6H PRN Pain 01/17/24 01/17/24 History (Tylenol) buspirone 15 mg tablet See Rx Instructions .Route .COMPLEX 01/17/24 01/17/24 History citalopram 40 mg tablet 40 mg PO QAM 01/17/24 01/17/24 History fluticasone propionate 50 1 spray intranasal DAILY 01/17/24 01/17/24 History mcg/actuation nasal spray,suspension ibuprofen 200 mg tablet 200 - 800 mg PO Q6H PRN Pain 01/17/24 01/17/24 History lorazepam 1 mg tablet 0.5 mg PO Q8H PRN Anxiety 01/17/24 01/17/24 History metoprolol succinate 25 mg 25 mg PO QAM 01/17/24 01/17/24 History tablet,extended release 24 hr Past Med/Surg History Medical History Cellulitis of left knee GERD (gastroesophageal reflux disease) hypergastrocolic reflux Depression Anxiety Sleep apnea has since lost 45 lbs - no problems now. 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 Hypertension 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 History of carpal tunnel release right History of colonoscopy Family History Other No family history of adverse response to anesthesia No pertinent family history in first degree relatives Social History Smoking Status: Never smoker Cigarettes Per Day: 1 ppd x 14 years; Second Hand Exposure: No; Do You Dip or Chew Tobacco: No (quit chew tobacco 10/2014); Hx Alcohol Use: Yes (decreased alcohol intake significantly in January 2023) Alcohol type: beer Hx Substance Use: No Preferred Language: Irish Communication Ability: Effective Logistics Operations 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 No acute distress Skin: No noted rashes or bruises Psych: Appropriate mood and affect Neuro: No gross deficits HEENT: NC/AT Chest: Nontender to palpation. CV: RRR Resp: Breath sounds clear bilaterally, no increased effort of breathing. Abdomen: Soft, nontender, nondistended Extremities: Trace edema in lower extremities bilaterally Results & Data Results & Data Vital Signs (Past 12 Hours) Vital Signs Temp Pulse Pulse Resp BP BP Pulse Ox 01/17/24 17:00 80 18 01/17/24 16:46 71 22 92 01/17/24 16:00 76 22 95 01/17/24 15:51 76 01/17/24 15:30 73 13 94 01/17/24 15:06 92 01/17/24 15:06 74 20 137/88 96 01/17/24 15:04 76 23 94 01/17/24 15:03 137/88 01/17/24 14:47 36.7 C 90 18 123/77 94 O2 Del Method 01/17/24 17:00 01/17/24 16:46 01/17/24 16:00 01/17/24 15:51 01/17/24 15:30 01/17/24 15:06 Room Air 01/17/24 15:06 Room Air 01/17/24 15:04 01/17/24 15:03 01/17/24 14:47 Room Air Diagnostic Findings Venous Doppler Study 01/17/24 15:03 BILATERAL LOWER EXTREMITY VENOUS DOPPLER HISTORY: History of pulmonary embolus. Assess for DVT. COMPARISON STUDY: None. FINDINGS: There is normal compressibility, flow, and augmentation within the bilateral lower extremity deep venous systems. IMPRESSION: No DVT within the right or left lower extremity. ACT 112: Negative or not required by law. Electronically signed by: Keshav Winter M.D. 01/17/2024 5:01 PM Code Status & VTE Plan VTE Prophylaxis Plan VTE Prophylaxis will be ordered: Yes (1) Pulmonary embolism Acute cor pulmonale presence: unspecified Chronicity: acute Pulmonary embolism type: unspecified Qualified Code(s): I26.99 - Other pulmonary embolism without acute cor pulmonale
[2024-01-17] MEDS: HEPARIN SOD (PORCINE) 1000 UNIT/ML IV STA (19:22)
[2024-01-17] MEDS: HEPARIN SODIUM/DEXTROSE 25,000 UNITS/500 ML BAG IV SCH (19:27)
[2024-01-17] MEDS ORDERED: LORazepam 1 MG in SYRINGE 0.5 ML IV PRN (21:03)
[2024-01-17] MEDS ORDERED: ONDANSETRON INJ 2 MG/ML 2 ML VIAL IV PRN (21:04)
[2024-01-17] MEDS ORDERED: ACETAMINOPHEN 500 MG TAB PO PRN (21:09)
[2024-01-17] MEDS: busPIRone 15 MG TAB PO SCH (22:24)
[2024-01-17] MEDS: GABAPENTIN 300 MG CAP PO SCH (22:25)
[2024-01-17] MEDS: allopurinoL 100 MG TAB PO STA (22:25)
[2024-01-17] MEDS ORDERED: Nursing to Pharmacy Communication SCH (22:30)
[2024-01-17] MEDS: IBUPROFEN 200 MG TAB PO STA (22:44)
[2024-01-18] MEDS: Heparin IV Adult Wt-Based Standard w/ INITIAL Bolus Protocol IV STA (01:26)
[2024-01-18 01:55] LABS: ANTI-Xa, UFH(UnfractionatedHep 0.27 IU/ml (0.3-0.7)
--- NOTE | 2024-01-18 09:09 | Hospitalist Progress Note ---
Date of Service January 18, 2024 Assessment & Plan (1) Pulmonary embolism: Plan Pt is a 53yoM with PMHx significant for HTN, HLD, TRUNG with CPAP, BEBO, alcohol abuse (states he quit end on November 2023) and previous smoking and chewing use who was referred by his PCP to the ED with PE noted on outpatient imaging. CTA Chest Non Coronary with Contrast 01/17/24 IMPRESSION: Acute segmental pulmonary embolus in the right upper and middle pulmonary arteries. Note this exam was not timed off the pulmonary arteries and was performed to assess an aortic aneurysm. Recommend referral to ER for further evaluation given patient's clinical symptoms were compatible with dyspnea on exertion. Trileaflet aortic valve with ectasia of the aortic root measuring up to 41 millimeters. Possible left lateral 4th through 6th rib fractures (obscured by respiratory motion). Correlation with clinical history of trauma and point tenderness is recommended. Pulmonary Emboli Dilated Aortic Root poss. left lateral 4th-6th tib fx Pt with dilated aortic root and gets frequent imaging He notes he has been having dyspnea on exertion and PCP ordered an echo and followed up with this CT Had CT done today which noted the above findings, PE in right upper and middle pulmonary arteries. Pt notes no recent travel but notes he has been more sedentary after losing his job in the winter Also notes strong family Hx with mother passing from PEs Doppler US done in the ED with no noted DVTs bilaterally + dyspnea on exertion sometimes Reports substernal chest pain with deep inhalation pt hemodynamically stable Dilated root on imaging stable Echo ordered to assess for heart strain -normal LV wall thickness. LV wall motion is abnormal. LVEF 60 to 65%. Grade 1 diastolic dysfunction. Aortic root is moderately dilated, 4.4 cm. Proximal ascending aorta diameter is normal. RV is normal in size and function. Doppler findings do not suggest pulmonary hypertension. Started on Heparin drip, consider transition to DOAC and followup outpt for genetic testing Chronic Alcohol Use Notes he quit drinking end of November 2023 At risk AWSS protocol ordered TRUNG cpap qhs Continue other home meds as ordered Diet: HH DVT prophylaxis: Heparin drip Admission and Anticipated Discharge Date Admission Date: January 17, 2024 Subjective Pt seen in follow up of PE, started on IV heparin in the ED Had outpt CT scan which diagnosed pt w/ PE Doppler of LEs obtained and negative for DVT Echo pending Currently sitting up in bed in NAD, reports substernal chest pain with deep inhalation no fever, chills, no abd. pain Review of Systems Review of Systems: All systems reviewed & are unremarkable except as noted in Subjective Physical Exam Physical Exam: General: Alert, oriented. No acute distress Skin: No noted rashes or bruises Psych: Appropriate mood and affect Neuro: No gross deficits HEENT: NC/AT Chest: Nontender to palpation. CV: RRR Resp: Breath sounds clear bilaterally, no increased effort of breathing. Abdomen: Soft, nontender, nondistended Extremities: Trace pedal edema bilaterally Results & Data Results & Data Vital Signs (Past 12 Hours) Vital Signs Temp Pulse Pulse Resp BP BP Pulse Ox 01/18/24 07:06 71 01/18/24 05:59 36.4 C L 63 16 145/96 H 95 01/18/24 05:26 61 18 01/17/24 23:49 67 12 156/94 H 96 01/17/24 23:02 69 O2 Del Method 01/18/24 07:06 01/18/24 05:59 Room Air 01/18/24 05:26 Room Air 01/17/24 23:49 Room Air 01/17/24 23:02 Laboratory Results 01/18/24 01/17/24 01/17/24 Range/Units 01:23 16:02 15:04 WBC 6.42 (4.8-10.8) K/ul RBC 5.15 (4.70-6.10) M/uL Hgb 15.5 (14.0-18.0) g/dl Hct 44.4 (42.0-52.0) % MCV 86.2 (80.0-100.0) fL MCH 30.1 (25.0-34.0) pg MCHC 34.9 (32.0-36.0) g/dL RDW Std Deviation 36.2 L (36.4-46.3) fL RDW Coeff of Inez 11.6 (11.5-14.5) % Plt Count 214 (130-400) K/uL MPV 9.8 (9.4-12.4) fL Immature Gran % (Auto) 0.5 % Neut % (Auto) 63.9 % Lymph % (Auto) 21.0 % Casey % (Auto) 12.0 % Eos % (Auto) 2.0 % Baso % (Auto) 0.6 % Neut # (Auto) 4.10 (1.40-6.50) K/uL Lymph # (Auto) 1.35 (1.20-3.40) K/uL Casey # (Auto) 0.77 H (0.11-0.59) K/uL Eos # (Auto) 0.13 (0.00-0.50) K/uL Baso # (Auto) 0.04 (0.00-0.20) K/uL Immature Gran # (Auto) 0.03 (0.01-0.20) K/uL PT 10.5 (9.0-12.0) Seconds INR 1.0 (0.9-1.1) APTT 24 (21-31) Seconds PTT Ratio 0.9 Heparin Anti-Xa, Unfract 0.27 L (0.3-0.7) IU/ml Sodium 136 (136-145) mmol/L Potassium 3.6 (3.5-5.1) mmol/L Chloride 98 (98-107) mmol/L Carbon Dioxide 28 (21-32) mmol/L Anion Gap 10 (3-11) BUN 15 (6-23) mg/dl Creatinine 1.02 (0.6-1.4) mg/dl Est Cr Clr Drug Dosing 107.3 ml/min Est GFR ( Amer) 96.1 ml/min Est GFR (Non-Af Amer) 82.9 ml/min BUN/Creatinine Ratio 14.7 (10-20) Glucose 149 H (70-99(Fasting)) mg/dl Calcium 9.2 (8.6-10.3) mg/dl Total Bilirubin 0.4 (0.2-1.0) mg/dl AST 20 (13-39) U/L ALT 30 (7-52) U/L Alkaline Phosphatase 72 (34-104) U/L Troponin I High Sens 3.9 (0-20) pg/ml Total Protein 6.9 (6.0-8.3) gm/dl Albumin 4.6 (3.4-5.0) gm/dl Globulin 2.3 L (2.5-4.0) gm/dl Albumin/Globulin Ratio 2.0 (0.9-2) Lipase 62 (11-82) U/L Urine Color Yellow Urine Appearance Clear (Clear) Urine pH 6.5 (4.5-7.5) Ur Specific [place] 1.019 (1.000-1.030) Urine Protein Negative (Negative) Urine Glucose (UA) Negative (Negative) Urine Ketones Negative (Negative) Urine Blood Negative (Negative) Urine Nitrite Negative (Negative) Urine Bilirubin Negative (Negative) Urine Urobilinogen Negative (Negative) Ur Leukocyte Esterase Negative (Negative) Medications Administered Current Inpatient Medications Acetaminophen (Acetaminophen 500 Mg Tab) 1,000 mg PO Q8H PRN PRN Reason: pain or fever Stop: 02/16/24 21:08 Allopurinol (Allopurinol 100 Mg Tab) 100 mg PO BID [facility] Stop: 02/17/24 08:59 Last Admin: 01/18/24 09:39 Dose: 100 mg Amlodipine Besylate (Amlodipine Besylate 5 Mg Tab) 5 mg PO QAM [facility] Stop: 02/17/24 08:59 Last Admin: 01/18/24 09:38 Dose: 5 mg Buspirone HCl (Buspirone 15 Mg Tab) 30 mg PO QAM [facility] Stop: 02/17/24 08:59 Last Admin: 01/18/24 09:39 Dose: 30 mg Buspirone HCl (Buspirone 15 Mg Tab) 15 mg PO [facility] Stop: 02/16/24 21:14 Last Admin: 01/17/24 22:24 Dose: 15 mg Citalopram Hydrobromide (Citalopram 40 Mg Tab) 40 mg PO QAM [facility] Stop: 02/17/24 08:59 Last Admin: 01/18/24 09:39 Dose: 40 mg Cyanocobalamin (Cyanocobalamin (B-12) 500 Mcg Tablet) 1,000 mcg PO DAILY [facility] Stop: 02/17/24 08:59 Last Admin: 01/18/24 09:38 Dose: 1,000 mcg Gabapentin (Gabapentin 100 Mg Cap) 200 mg PO BID@0900,1400 [facility] Stop: 02/17/24 08:59 Last Admin: 01/18/24 13:35 Dose: 200 mg Gabapentin (Gabapentin 300 Mg Cap) 300 mg PO HS [facility] Stop: 02/16/24 21:14 Last Admin: 01/17/24 22:25 Dose: 300 mg Lisinopril/HCTZ (Lisinopril/Hctz 20/12.5mg 1 Tab Tab) 2 tab PO DAILY [facility] Stop: 02/17/24 08:59 Last Admin: 01/18/24 09:39 Dose: 2 tab Heparin Sodium/Dextrose (Heparin Sodium/Dextrose) 25,000 units in 500 mls @ 37 mls/hr IV .[id number] [facility]; Protocol Stop: 02/16/24 18:29 Last Admin: 01/18/24 10:57 Dose: Not Given Lorazepam 1 mg/ Syringe 1 mls @ 2 mls/min IV ONE PRN; Protocol PRN Reason: EtoH Withdrawal AWSS 6-10 Lorazepam (Lorazepam 0.5 Mg Tab) 0.5 mg PO Q8H PRN PRN Reason: Anxiety Stop: 02/16/24 21:07 Metoprolol Succinate (Metoprolol Succ 25mg Ext Rel Tab) 25 mg PO QAM [facility] Stop: 02/17/24 08:59 Last Admin: 01/18/24 09:38 Dose: 25 mg Ondansetron HCl (Ondansetron Inj 2 Mg/Ml 2 Ml Vial) 4 mg IV Q6H PRN PRN Reason: Nausea And Vomiting Stop: 02/16/24 21:03 Oxycodone HCl (Oxycodone Hcl Ir 5 Mg Tab (Immediate Release)) 5 mg PO Q4H PRN PRN Reason: Pain Stop: 02/01/24 15:25 Vitamin D (Cholecalciferol 25 Mcg (1000 Units) Tab) 25 mcg PO DAILY [facility] Stop: 02/17/24 08:59 Last Admin: 01/18/24 09:37 Dose: 25 mcg (1) Pulmonary embolism Acute cor pulmonale presence: unspecified Chronicity: acute Pulmonary embolism type: unspecified Qualified Code(s): I26.99 - Other pulmonary embolism without acute cor pulmonale
[2024-01-18] MEDS: CHOLECALCIFEROL 25 MCG (1000 UNITS) TAB PO SCH (09:37)
[2024-01-18] MEDS: CYANOCOBALAMIN (B-12) 500 MCG TABLET PO SCH (09:38)
[2024-01-18] MEDS: amLODIPine BESYLATE 5 MG TAB PO SCH (09:38)
[2024-01-18] MEDS: METOPROLOL SUCC 25MG EXT REL TAB PO SCH (09:38)
[2024-01-18] MEDS: GABAPENTIN 100 MG CAP PO SCH (09:38)
[2024-01-18] MEDS: busPIRone 15 MG TAB PO SCH (09:39)
[2024-01-18] MEDS: allopurinoL 100 MG TAB PO SCH (09:39)
[2024-01-18] MEDS: LISINOPRIL/HCTZ 20/12.5MG 1 TAB TAB PO SCH (09:39)
[2024-01-18] MEDS: CITALOPRAM 40 MG TAB PO SCH (09:39)
[2024-01-18 10:03] LABS: Basophils # (auto) 0.02 K/uL (0.00-0.20); Basophils % (auto) 0.4 %; Eosinophils # (auto) 0.18 K/uL (0.00-0.50); Eosinophils % (auto) 3.2 %; Hematocrit (blood only) 46.7 % (42.0-52.0); Hemoglobin 16.3 g/dl (14.0-18.0); Immature Granulocytes # (auto) 0.03 K/uL (0.01-0.20); Immature Granulocytes % (auto) 0.5 %; Lymphocytes % (auto) 25.3 %; Mean Corpuscular Hemoglobin 29.7 pg (25.0-34.0); Mean Corpuscular Hgb Conc 34.9 g/dL (32.0-36.0); Mean Corpuscular Volume 85.2 fL (80.0-100.0); Mean Platelet Volume 9.7 fL (9.4-12.4); Monocytes # (auto) 0.48 K/uL (0.11-0.59); Monocytes % (auto) 8.7 %; Neutrophils # (auto) 3.43 K/uL (1.40-6.50); Neutrophils % (auto) 61.9 %; Platelet Count 187 K/uL (130-400); RDW Coefficient of Variation 11.7 % (11.5-14.5); RDW Standard Deviation 35.6 fL (36.4-46.3); Red Blood Count 5.48 M/uL (4.70-6.10); White Blood Count 5.54 K/ul (4.8-10.8)
[2024-01-18 10:17] LABS: Albumin Globulin Ratio 1.8 (0.9-2); Albumin Level 4.4 gm/dl (3.4-5.0); BUN Creatinine Ratio 13.5 (10-20); Bilirubin,Total 0.6 mg/dl (0.2-1.0); Calcium 9.3 mg/dl (8.6-10.3); Est GFR (African American) 112.3 ml/min; Est GFR (Non-African American) 96.9 ml/min; Globulin 2.4 gm/dl (2.5-4.0); Phosphorus 2.9 mg/dl (2.5-4.9); Potassium 3.7 mmol/L (3.5-5.1); Total Protein 6.8 gm/dl (6.0-8.3)
[2024-01-18 10:22] LABS: ANTI-Xa, UFH(UnfractionatedHep 0.26 IU/ml (0.3-0.7)
--- NOTE | 2024-01-18 11:37 | XRay Report ---
XR ribs LT min 2V w CXR1V CLINICAL HISTORY: possible rib fractures noted on outside CT COMPARISON STUDY: Outside hospital chest CT 01/17/2024.. FINDINGS: No pneumothorax. No pleural effusions. The heart is normal in size. No acute rib fractures identified. The subcentimeter pulmonary nodules within the left lower lobe seen on the recent chest C T are not well visualized on this study. IMPRESSION: 1. No acute rib fractures. No pneumothorax. 2. The subcentimeter pulmonary nodules within the left lower lobe on the recent chest CT are not well visualized by this modality. ACT 112: Negative or not required by law. Electronically signed by: Keshav Winter M.D. 01/18/2024 11:35 AM
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
--- OUTSIDE RECORDS SUMMARY | 2024-01-18 12:53 | External Medical Summary | Summary of Care ---
Author Name Unknown Organization [facility] Address [address] [facility] [place] [address] Phone [phone] Care Team Providers Care Heel Blacker Name Role Phone Ta Last MD Primary Care Provider + Encounter Details Date Type Department Care Team (Late st Contact Info) Description 01/16/2024 Patient Reported Data Patient Survey Ortho OBERD Allergies No known active allergiesdocumented as of [...] 50 MCG/ACT Nasal Suspension (Flonase) Administer 1 [place] into nostril in the morning. 16 g [...] on file documented as of this encounter Plan of Treatment Upcoming Encounters Date Type Department Care Team (Latest Contact Info) Description 01/17/2024 7:45 AM EDT Imaging Radiology [facility] [address] [facility] [place] [address] [place] [address] 01/19/2024 11:20 AM EDT Office Visit General Internal Medicine [facility] [address] [place] [address] Ta Last MD [address] [facility] [place] [address] 01/25/2024 9:20 AM EDT NeuroDiagnostic Study Neurophysiology [facility] [address] [place] [address] Ahmet Murillo, DO [address] [place] [address] 02/05/2024 9:15 AM EDT Hospital Encounter OR [facility], Operating Room [facility] [address] [place] [phone] Rich Knight, DO [address] [place] [phone] 02/05/2024 9:15 AM EDT - 02/05/2024 9:40 AM EDT Surgery OR [facility], Operating Room [facility] [address] [place] [phone] Rich Knight, DO [address] [place] [phone] INJECTION SPINE LUMBAR CERVICAL OR THORACIC 03/05/2024 9:30 AM EDT Office Visit Audiology [facility] [address] [place] [address] Alondra Boyle Au.D. [address] [place] [address] 03/19/2024 3:00 PM EDT Office Visit Interventional Pain Center, [facility] [address] [place] [address] Rich Knight, DO [address] [place] [phone] 03/29/2024 11:20 AM EDT Office Visit General Internal Medicine [facility] [place] [address] [facility] [place] [address] Ta Last MD 200 [facility] [place] [address] Scheduled Procedures Name Priority Associated Diagnoses Date/Ti me INJECTION SPINE LUMBAR CERVICAL OR THORACIC Cervical radiculitis 02/05/2024 9:15 AM EDT COLONOSCOPY FLEXIBLE PROXIMAL DIAGNOSTIC Recall History of colon polyps Family history of colon cancer Health Maintenance Due Date Last Done Comments Hepatitis B (1 of 3 - 19+ 3-dose series) 1988 COVID-19 Vaccine (2022- season) 2023 03/25/2021, 2021 *NEPHROLOGY REFERRAL DUE TO RESISTANT HTN 12/31/2023 Influenza Vaccine (FLU shot) (Season Ended) 2024 GFR 01/14/2025 01/15/2024, 10/27, 04/14/2023, Additional history exists Albumin/Creatinine Ratio 02/07/2026 02/07/2023, 07/27 Diabetes Screening 01/14/2027 01/15/2024, 0 04/14/2023, 03/03/2023, Additional history exists COLONOSCOPY-EVERY 5 YRS AGES 18-100 06/27/2027 06/27/2022, 06/27/2022, 10/21/2016, Additional history exists Lipid Panel 01/14/2029 01/15/2024, 04/09/2023, 11/16/2023, Additional history exists DTaP,Tdap,and Td Vaccines [...] filedocumented as of this encounter Care Teams Heel Blacker Relationship Specialty Start Date End Date Ta Last MD [address] [place], [place] [id number] PCP - General Internal Medicine 11/19/18 documented as of this encounter
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
--- OUTSIDE RECORDS SUMMARY | 2024-01-18 12:54 | External Medical Summary ---
Author Name Unknown Address Unknown Organization [id number]:LABORATORY [facility] [place] - [address] [facility] [address] [place] [address] Laboratory Report Ordering Provider Test Date Status QUINTON RENE 01/15/2024 09:03:43 Final Observation Date Value Abnormality Reference (Units ) Status Triglyceride 01/15/2024 09:03:43 561 Above high normal <=174 (mg/dL) Final Triglyceride Reference Range s (mg/dL):
<150 Acceptable
150-174 Borderline high
175-499 High
>=500 Very high Cholesterol 01/15/2024 09:03:43 251 Above high normal <200 (mg/dL) Final Total Cholesterol Reference Ranges (mg/dL):
<200 Desirable
200-239 Borderline high
>=240 High HDL 01/15/2024 09:03:43 32 Below low normal >39 (mg/dL) Final HDL Cholesterol Reference Ra nges (mg/dL):
>=60 High (Desirable)
<50 Low (Undesirable) For Females
<40 Low (Undesirable) For Males NON-HDL CHOLESTEROL 01/15/2024 09:03:43 219 Above high normal <=159 (mg/dL) Final Non-HDL Cholesterol Referenc e Range (mg/dL):
<100 Target level for high risk ASCVD patient
<130 Optimal for general population
130-159 Near optimal for general population
160-189 Borderline High
190-219 High
>=220 Very High Performing Location LABORATORY [facility] [place] - [address] [place] [address]
--- OUTSIDE RECORDS SUMMARY | 2024-01-18 12:54 | External Medical Summary ---
Author Name Unknown Address Unknown Organization K01:LABORATORY [facility] [place] - [address] [place] [address] Laboratory Report Ordering Provider Test Date Status QUINTON RENE 01/15/2024 09:03:43 Final Observation Date Value Abnormality Reference (Units ) Status LDL, (direct) 01/15/2024 09:03:43 130 Above high bree l <=129 (mg/dL) Final LDL Cholesterol Reference Ra nges (mg/dL):
<70 Target level for high risk ASCVD patient
<100 Optimal for general population
100-129 Near optimal for general population
130-159 Borderline high
160-189 High
>=190 Very high Performing Location LABORATORY C - [address] [place] [address]
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
--- OUTSIDE RECORDS SUMMARY | 2024-01-18 12:54 | External Medical Summary ---
Author Name Unknown Address Unknown Organization K01:LABORATORY [facility] [place] - [address] [place] [address] Laboratory Report Ordering Provider Test Date Status QUINTON RENE 01/15/2024 09:03:43 Final Observation Date Value Abnormality Reference (Units ) Status Vitamin B12 01/15/2024 09:03:43 [phone] (pg/mL) Final Performing Location LABORATORY [facility] [place] - [address] [place] [address]
--- OUTSIDE RECORDS SUMMARY | 2024-01-18 12:54 | External Medical Summary ---
Author Name Unknown Address Unknown Organization K0G:LABORATORY [place] [address] - [address] [place] [address] Laboratory Report Ordering Provider Test Date Status DO ANJUIRENE 01/15/2024 09:03:43 Final Observation Date Value Abnormality Reference (Units ) Status BUN 01/15/2024 09:03:43 15 6-20 (mg/dL) Final Creatinine 01/15/2024 09:03:43 1.1 0.6-1.2 (mg/dL) Final Glomerular filtration rate/1.73 sq M.predicted [Volume Rate/Area] in Serum, Plasma or Blood by Creatinine-based formula (CKD-EPI) 01/15/2024 09:03:43 82 >=60 (mL/min) Final eGFR is calculated based on the CKD-EPI 2020 equation Sodium 01/15/2024 09:03:43 137 135-146 (m mol/L) Final Potassium 01/15/2024 09:03:43 4.3 3.5-5.1 (m mol/L) Final Cl 01/15/2024 09:03:43 98 98-107 (mm ol/L) Final CO2 01/15/2024 09:03:43 28 22-32 (mmo l/L) Final Anion gap 01/15/2024 09:03:43 11 7-15 (mmol /L) Final Glucose 01/15/2024 09:03:43 131 Above high normal 70 -120 (mg/dL) Final Albumin 01/15/2024 09:03:43 4.6 3.8-5.0 (g /dL) Final AST (Aspartate aminotransferase) 01/15/2024 09:03:43 20 10-50 (U/L) Fin al Alk Phos 01/15/2024 09:03:43 89 35-130 (U/ L) Final Bilirubin, Total 01/15/2024 09:03:43 0.4 <=1 .2 (mg/dL) Final Calcium 01/15/2024 09:03:43 9.5 8.4-10.2 ( mg/dL) Final Protein 01/15/2024 09:03:43 6.6 6.0-8.3 (g /dL) Final ALT (Alanine aminotransferase) 01/15/2024 09:03:43 36 10-50 (U/L) Charles galvan Performing Location LABORATORY [place] [address] - [address] [place] [address]
--- OUTSIDE RECORDS SUMMARY | 2024-01-18 12:54 | External Medical Summary ---
Author Name Unknown Address Unknown Organization K01:[facility] [place] [address] [place] [address] Laboratory Report Ordering Provider Test Date Status QUINTON RENE 01/15/2024 09:03:43 Final Observation Date Value Abnormality Reference (Units ) Status Uric Acid 01/15/2024 09:03:43 5.3 3.4-7.0 (m g/dL) Final Performing Location [facility] [place] [address] [place] [address]
--- OUTSIDE RECORDS SUMMARY | 2024-01-18 12:54 | External Medical Summary | Summary of Care ---
Author Name Unknown Organization [facility] Address [address] [facility] [address] Phone [phone] Care Team Providers Care Solderer Furnace Name Role Phone Ta Last MD Primary Care Provider + Reason for Visit * Reason Comments Outpatient Testing Encounter Details Date Type Department Care Team (Late st Contact Info) Description 01/15/2024 9:00 AM EDT Laboratory Laboratory, [facility] 132 [facility] [place] [phone] [facility] [place] [address] Elevated triglycerides with high cholesterol; Gout, unspecified cause, unspecified chronicity, unspecified site; HTN, goal below 130/80; Neuropathy; Aortic root enlargement (HCC) Allergies No known active allergiesdocumented as of [...] 50 MCG/ACT Nasal Suspension (Flonase) Administer 1 [place] into nostril in the morning. 16 g [...] Care Team (Latest Contact Info) Description 01/15/2024 9:30 AM EDT Office Visit Orthopaedics [facility] [address] [place] [address] Rayshawn Spears, DO 132 [place] [address] Arrived 01/17/2024 7:45 AM EDT Imaging Radiology [address] 132 [place] [address] 01/19/2024 11:20 AM EDT Office Visit General Internal Medicine [facility] [address] [place] [address] Ta Last MD [address] [place] [address] 01/25/2024 9:20 AM EDT NeuroDiagnostic Study Neurophysiology [facility] [address] [place] [address] Ahmet Murillo, DO [address] [place] [address] 02/05/2024 9:15 AM EDT Hospital Encounter OR [facility], Operating Room O[facility] [address] [place] [phone] Rich Knight, DO [address] [place] [phone] 02/05/2024 9:15 AM EDT - 02/05/2024 9:40 AM EDT Surgery OR [facility], Operating Room OSS [address] [place] [phone] Rich Knight DO [address] [place] [phone] INJECTION SPINE LUMBAR CERVICAL OR THORACIC 03/05/2024 9:30 AM EDT Office Visit Audiology [facility] [address] [place] [address] Alondra Boyle Au.D. [address] [place] [address] 03/29/2024 11:20 AM EDT Office Visit General Internal Medicine [facility] 200 [facility] [place] [address] Ta Last MD 200 [facility] [place] [address] Pending Results Name Type Priority Associated Diagnoses Date /Time LIPID PANEL WITH DIRECT LDL IF TG IS HIGH Lab Routine Elevated triglycerides with high cholesterol 01/15/2024 9:03 AM EDT URIC ACID Lab Routine Gout, unspecified cause, unspecified chronicity, unspecified site 01/15/2024 9:03 AM EDT COMPREHENSIVE METABOLIC PANEL Lab Routine HTN, goal below 130/80 01/15/2024 9:03 AM EDT VITAMIN B12 Lab Routine Neuropathy 01/15/2024 9:03 AM EDT VITAMIN B1 (THIAMINE), BLOOD, LC/MS/MS Lab Routine Neuropathy 01/15/2024 9:03 AM EDT Scheduled Procedures Name Priority Associated Diagnoses Date/Ti [...] Not on filedocumented as of this encounter Visit Diagnoses Diagnosis Elevated triglycerides with high cholesterol Mixed hyperlipidemia Gout, unspecified cause, unspecified chronicity, unspecified site HTN, goal below 130/80 Unspecified essential hypertension Neuropathy Mononeuritis of unspecified site Aortic root enlargement (HCC) Other specified disorders of arteries and arterioles Cervical radiculitis Brachial neuritis or radiculitis nos documented in this encounter Care Teams Solderer Furnace Relationship Specialty Start Date End Date Ta Last MD [address] [place] [address] PCP - General Internal Medicine 11/19/18 documented as of this encounter
--- OUTSIDE RECORDS SUMMARY | 2024-01-18 12:54 | External Medical Summary | Summary of Care ---
Author Name Unknown Organization [facility] Address [address] [facility] [place] [address] Phone [phone] Care Team Providers Care Union Representative Name Role Phone Ta Last MD Primary Care Provider + Reason for Visit * Reason Onset Date Comments Test Results 01/11/2024 Encounter Details Date Type Department Care Team (Late st Contact Info) Description 01/11/2024 Telephone General Internal Medicine [facility] [place] 200 [facility] [place] [address] Ta Last MD 200 [facility] [place] [address] Test Results Allergies No known active allergiesdocumented [...] 50 MCG/ACT Nasal Suspension (Flonase) Administer 1 [place] into nostril in the morning. 16 g [...] 01/11/2024 11:32 AM EDT Message sent via Bill Me Later. Provider to address: n/a Reason for Call: Test Results Contact: Sarita Vital Contact Type: Test Results Outcome: See above Face to face time spent with Patient (minutes): 0 Total Time including non face to face (minutes): 10 David Boyer RN BSN ROSI Primary Care Nurse Coordinator [facility] (Helping out) * Telephone Encounter - [...] 01/15/2024 9:30 AM EDT Office Visit Orthopaedics [facility] [address] [place] [address] Rayshawn Spears DO 132 [place] [address] 01/19/2024 11:20 AM EDT Office Visit General Internal Medicine [facility] [address] [place] [address] Ta Last MD [address] [place] [address] 01/25/2024 9:20 AM EDT NeuroDiagnostic Study Neurophysiology [facility] [address] [place] [address] Ahmet Murillo, DO [address] [place] [address] 02/05/2024 9:15 AM EDT Hospital Encounter OR [facility], Operating Room [facility] [address] [place] [phone] Rich Knight, DO [address] [place] [phone] 02/05/2024 9:15 AM EDT - 02/05/2024 9:40 AM EDT Surgery OR [facility], Operating Room [facility] [address] [place] [phone] Rich Knight, DO [address] [place] [address] INJECTION SPINE LUMBAR CERVICAL OR THORACIC 03/05/2024 9:30 AM EDT Office Visit Audiology [facility] [address] [place] [address] Alondra Boyle Au.D. [address] [place] [address] 03/29/2024 11:20 AM EDT Office Visit General Internal Medicine [facility] [place] [address] [place] [address] Ta Last MD [address] [place] [address] Scheduled Procedures Name Priority Associated Diagnoses Date/Ti me INJECTION SPINE LUMBAR CERVICAL OR THORACIC Cervical radiculitis 02/05/2024 9:15 AM EDT COLONOSCOPY FLEXIBLE PROXIMAL DIAGNOSTIC Recall History of colon polyps Family history of colon cancer Health Maintenance Due Date Last Done Comments Hepatitis B (1 of 3 - 19+ 3-dose series) 1988 COVID-19 Vaccine (3 - 2022- season) 2023 03/25/2021, 2021 *NEPHROLOGY REFERRAL DUE [...] filedocumented as of this encounter Care Teams Union Representative Relationship Specialty Start Date End Date Ta Last MD 200 [facility] [place] [address] PCP - General Internal Medicine 2/25/19 documented as of this encounter
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
--- OUTSIDE RECORDS SUMMARY | 2024-01-18 12:55 | External Medical Summary | Summary of Care ---
Author Name Unknown Organization [facility] Address [address] [facility] [place] [address] Phone [phone] Care Team Providers Care Audiovisual Aids Technician Name Role Phone Ta Last MD Primary Care Provider + Reason for Visit * Reason Onset Date Comments Test Results 01/11/2024 Encounter Details Date Type Department Care Team (Late st Contact Info) Description 01/11/2024 Telephone General Internal Medicine [facility] [place] [address] [facility] [place] [address] Ta Last MD [address] [facility] [place] [address] Test Results Allergies No known active allergiesdocumented [...] 50 MCG/ACT Nasal Suspension (Flonase) Administer 1 [place] into nostril in the morning. 16 g [...] 01/11/2024 11:32 AM EDT Message sent via myThings. Provider to address: n/a Reason for Call: Test Results Contact: Sarita Vital Contact Type: Test Results Outcome: See above Face to face time spent with Patient (minutes): 0 Total Time including non face to face (minutes): 10 David Boyer RN BSN ROSI Primary Care Nurse Coordinator [facility] (Helping out) * Telephone Encounter - [...] 01/15/2024 9:30 AM EDT Office Visit Orthopaedics [facility] [address] [place] [address] Rayshawn Spears DO [address] [place] [address] 01/19/2024 11:20 AM EDT Office Visit General Internal Medicine [facility] [address] [place] [address] Ta Last MD [address] [place] [address] 01/25/2024 9:20 AM EDT NeuroDiagnostic Study Neurophysiology [facility] [address] [place] [address] Ahmet Murillo, DO [address] [place] [address] 02/05/2024 9:15 AM EDT Hospital Encounter OR [facility], Operating Room [facility] [address] [place] [phone] Rich Knight, DO [address] [place] [phone] 02/05/2024 9:15 AM EDT - 02/05/2024 9:40 AM EDT Surgery OR [facility], Operating Room [facility] [address] [place] [phone] Rich Knight, DO [address] [place] [address] INJECTION SPINE LUMBAR CERVICAL OR THORACIC 03/05/2024 9:30 AM EDT Office Visit Audiology [facility] [address] [place] [address] Alondra Boyle Au.D. [address] [place] [address] 03/29/2024 11:20 AM EDT Office Visit General Internal Medicine [facility] [address] [place] [address] Ta Last MD [address] [place] [address] Scheduled Procedures Name Priority Associated Diagnoses Date/Ti [...] filedocumented as of this encounter Care Teams Audiovisual Aids Technician Relationship Specialty Start Date End Date Ta Last MD [address] [facility] [place] [address] PCP - General Internal Medicine 2/25/19 documented as of this encounter
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
--- OUTSIDE RECORDS SUMMARY | 2024-01-18 12:55 | External Medical Summary | Summary of Care ---
Author Name Unknown Organization [facility] [address] [facility] [address] Phone [phone] Care Team Providers Care Software Developer Mid Level Name Role Phone Ta Last MD Primary Care Provider + Encounter Details Date Type Department Care Team (Late st Contact Info) Description 01/11/2024 Telephone Pulmonary Medicine, [facility] [address] [place] [address] Vanessa Hardy DO [address] [place] [address] Allergies No known active allergiesdocumented as of [...] 50 MCG/ACT Nasal Suspension (Flonase) Administer 1 [place] into nostril in the morning. 16 g [...] encounter Miscellaneous Notes * Telephone Encounter - Kacy Ernst OSA - 01/11/2024 9:32 AM EDT Pressure change faxed to [facility]. documented in this encounter Plan of Treatment Upcoming Encounters Date Type Department Care Team (Latest Contact Info) Description 01/15/2024 9:30 AM EDT Office Visit Orthopaedics [facility] [address] [place] [address] Rayshawn Spears, DO [address] [place] [address] 01/19/2024 11:20 AM EDT Office Visit General Internal Medicine [facility] [address] [facility] [place] [address] Ta Last MD [address] [place] [address] 01/25/2024 9:20 AM EDT NeuroDiagnostic Study Neurophysiology [facility] [address] [place] [address] Ahmet Murillo, DO [address] [facility] [place] [address] 02/05/2024 9:15 AM EDT Hospital Encounter OR [facility], Operating Room [facility] [address] [place] [phone] Rich Knight, DO [address] [place] [phone] 02/05/2024 9:15 AM EDT - 02/05/2024 9:40 AM EDT Surgery OR [facility], Operating Room [facility] [address] [place] [phone] Rich Knight DO [address] [place] [phone] INJECTION SPINE LUMBAR CERVICAL OR THORACIC 03/05/2024 9:30 AM EDT Office Visit Audiology [facility] [address] [place] [address] Alondra Boyle Au.D. [address] [place] [address] 03/29/2024 11:20 AM EDT Office Visit General Internal Medicine [facility] [address] [facility] [place] [address] Ta Last MD 200 [facility] [place] [address] Scheduled Procedures Name Priority Associated Diagnoses Date/Ti me INJECTION SPINE LUMBAR CERVICAL OR THORACIC Cervical radiculitis 02/05/2024 9:15 AM EDT COLONOSCOPY FLEXIBLE PROXIMAL DIAGNOSTIC Recall History of colon polyps Family history of colon cancer Health Maintenance Due Date Last Done Comments Hepatitis B (1 of 3 - 19+ 3-dose series) 1988 COVID-19 Vaccine ( - 2022- season) 2023 03/25/2021, 2021 *NEPHROLOGY [...] filedocumented as of this encounter Care Teams Software Developer Mid Level Relationship Specialty Start Date End Date Ta Last MD 200 [place] [address] PCP - General Internal Medicine 11/19/18 documented as of this encounter
--- OUTSIDE RECORDS SUMMARY | 2024-01-18 12:55 | External Medical Summary | Summary of Care ---
Author Name Unknown Organization [facility] Address [address] [facility] [address] Phone [phone] Care Team Providers Care Communication Center Operator Name Role Phone Ta Last MD Primary Care Provider + Encounter Details Date Type Department Care Team (Late st Contact Info) Description 01/11/2024 Telephone Pulmonary Medicine, [facility] [address] [place] [address] Vanessa Hardy DO [address] [place] [address] Allergies No known active allergiesdocumented as of [...] 50 MCG/ACT Nasal Suspension (Flonase) Administer 1 [place] into nostril in the morning. 16 g [...] 08/05/2021 Vitamin B12 deficiency 12/21/2018 Neuropathy 12/19/2018 TURNG (obstructive sleep apnea) 11/19/2018 Moderate major depression, [...] Encounter - Kacy Ernst OSA - 01/11/2024 9:25 AM EDT CPAP resupply order entered in [employer] documented in this encounter Plan of Treatment Upcoming Encounters Date Type Department Care Team (Latest Contact Info) Description 01/15/2024 9:30 AM EDT Office Visit Orthopaedics [facility] [address] [place] [address] Rayshawn Spears, DO [address] [place] [address] 01/19/2024 11:20 AM EDT Office Visit General Internal Medicine [facility] [address] [facility] [place] [address] Ta Last MD 200 [facility] [place] [address] 01/25/2024 9:20 AM EDT NeuroDiagnostic Study Neurophysiology [facility] [address] [place] [address] Ahmet Murillo, DO 200 [facility] [place] [address] 02/05/2024 9:15 AM EDT Hospital Encounter OR [facility], Operating Room [facility] [address] [place] [phone] Rich Knight, DO [address] [place] [phone] 02/05/2024 9:15 AM EDT - 02/05/2024 9:40 AM EDT Surgery OR [facility], Operating Room [facility] [address] [place] [phone] Rich Knight DO [address] [place] [phone] INJECTION SPINE LUMBAR CERVICAL OR THORACIC 03/05/2024 9:30 AM EDT Office Visit Audiology [facility] [address] [place] [address] Alondra Boyle Au.D. [address] [place] [address] 03/29/2024 11:20 AM EDT Office Visit General Internal Medicine [facility] [address] [facility] [place] [address] Ta Last MD 200 [facility] [place] [address] Scheduled Procedures Name Priority Associated Diagnoses Date/Ti [...] filedocumented as of this encounter Care Teams Communication Center Operator Relationship Specialty Start Date End Date Ta Last MD 200 [facility] [place] [address] PCP - General Internal Medicine 11/19/18 documented as of this encounter
--- OUTSIDE RECORDS SUMMARY | 2024-01-18 12:55 | External Medical Summary | Summary of Care ---
Author Name Unknown Organization [facility] Address [address] [facility] [place] [address] Phone [phone] Care Team Providers Care Tightening Machine Operator Name Role Phone Ta Last MD [...] 50 MCG/ACT Nasal Suspension (Flonase) Administer 1 [place] into nostril in the morning. 16 g [...] 01/15/2024 9:30 AM EDT Office Visit Orthopaedics [facility] [address] [place] [address] Rayshawn Spears, [address] [place] [address] 01/19/2024 11:20 AM EDT Office Visit General Internal Medicine [facility] [address] [place] [address] Ta Last MD [address] [place] [address] 01/25/2024 9:20 AM EDT NeuroDiagnostic Study Neurophysiology [facility] [address] [place] [address] Ahmet Murillo, DO [address] [place] [place] [address] [address] 02/05/2024 9:15 AM EDT Hospital Encounter OR [facility], Operating Room [facility] [address] [place] [phone] Rich Knight, DO [address] [place] [phone] 02/05/2024 9:15 AM EDT - 02/05/2024 9:40 AM EDT Surgery OR [facility], Operating Room [facility] [address] [place] [phone] Rich Knight, DO [address] [place] [phone] INJECTION SPINE LUMBAR CERVICAL OR THORACIC 03/05/2024 9:30 AM EDT Office Visit Audiology [facility] [address] [place] [address] Alondra Boyle Au.D. [address] [place] [address] 03/29/2024 11:20 AM EDT Office Visit General Internal Medicine [facility] [address] [place] [address] Ta Last MD [address] [place] [address] Scheduled Procedures Name Priority Associated Diagnoses Date/Ti [...] filedocumented as of this encounter Care Teams Tightening Machine Operator Relationship Specialty Start Date End Date Ta Last MD [address] [place] [address] PCP - General Internal Medicine 11/19/18 documented as of this encounter
--- OUTSIDE RECORDS SUMMARY | 2024-01-18 12:55 | External Medical Summary | Summary of Care ---
Author Name Unknown Organization [facility] Address [address] [facility] [place] [address] Phone [phone] Care Team Providers Care Cigar Head Perforator Name Role Phone Ta Last MD Primary [...] 50 MCG/ACT Nasal Suspension (Flonase) Administer 1 [place] into nostril in the morning. 16 g [...] 01/15/2024 9:30 AM EDT Office Visit Orthopaedics [facility] [address] [place] [address] Rayshawn Spears, [address] [place] [address] 01/19/2024 11:20 AM EDT Office Visit General Internal Medicine [facility] [address] [place] [address] Ta Last MD [address] [place] [address] 01/25/2024 9:20 AM EDT NeuroDiagnostic Study Neurophysiology [facility] [address] [place] [address] Ahmet Murillo, DO [address] [place] [address] 02/05/2024 9:15 AM EDT Hospital Encounter OR [facility], Operating Room [facility] [address] [place] [phone] Rich Knight, DO [address] [place] [phone] 02/05/2024 9:15 AM EDT - 02/05/2024 9:40 AM EDT Surgery OR [facility], Operating Room [facility] [address] [place] [phone] Rich Knight, DO [address] [place] [phone] INJECTION SPINE LUMBAR CERVICAL OR THORACIC 03/05/2024 9:30 AM EDT Office Visit Audiology [facility] [address] [place] [address] Alondra Boyle Au.D. [address] [place] [address] 03/29/2024 11:20 AM EDT Office Visit General Internal Medicine [facility] [address] [place] [address] Ta aLst MD [address] [place] [address] Scheduled Procedures Name Priority Associated Diagnoses Date/Ti [...] filedocumented as of this encounter Care Teams Cigar Head Perforator Relationship Specialty Start Date End Date Ta Last MD [address] [place] [address] [address] PCP - General Internal Medicine 11/19/18 documented as of this encounter
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
--- OUTSIDE RECORDS SUMMARY | 2024-01-18 12:55 | External Medical Summary | Summary of Care ---
Author Name Unknown Organization [facility] Address [address] [facility] [place] [address] Phone [phone] Care Team Providers Care Living Coach Name Role Phone Ta Last MD Primary [...] 50 MCG/ACT Nasal Suspension (Flonase) Administer 1 [place] into nostril in the morning. 16 g 3 01/09/2024 Active documented as of this encounter (statuses as of 01/09/2024) Active Problems Problem Noted Date Diagnosed Date Gout 12/28/2023 Mixed emotional features as adjustment reaction 12/28/2023 Testicular pain, right 10/17/2023 BEOB (generalized anxiety disorder) 09/01/2022 HTN, goal below [...] 01/15/2024 9:30 AM EDT Office Visit Orthopaedics [facility] [address] [place] [address] Rayshawn Spears, [address] [place] [address] 01/19/2024 11:20 AM EDT Office Visit General Internal Medicine [facility] [address] [place] [address] Ta Last MD [address] [place] [address] 01/25/2024 9:20 AM EDT NeuroDiagnostic Study Neurophysiology [facility] [address] [place] [address] Ahmet Murillo, DO [address] [place] [address] 02/05/2024 9:15 AM EDT Hospital Encounter OR [facility], Operating Room [facility] [address] [place] [phone] Rich Knight, DO [address] [place] [phone] 02/05/2024 9:15 AM EDT - 02/05/2024 9:40 AM EDT Surgery OR [facility], Operating Room [facility] [address] [place] [phone] Rich Knight, DO [address] [place] [phone] INJECTION SPINE LUMBAR CERVICAL OR THORACIC 03/05/2024 9:30 AM EDT Office Visit Audiology [facility] [address] [place] [address] Alondra Boyle Au.D. [address] [place] [address] 03/29/2024 11:20 AM EDT Office Visit General Internal Medicine [facility] [address] [place] [address] Ta Last MD [address] [place] [address] Scheduled Procedures Name Priority Associated Diagnoses Date/Ti [...] filedocumented as of this encounter Care Teams Living Coach Relationship Specialty Start Date End Date Ta Last MD [address] [place] [address] PCP - General Internal Medicine 11/19/18 documented as of this encounter
--- OUTSIDE RECORDS SUMMARY | 2024-01-18 12:55 | External Medical Summary | Summary of Care ---
Author Name Unknown Organization [facility] Address [address] [facility] [place] [address] Phone [phone] Care Team Providers Care Fundraising Specialist Name Role Phone Ta Last MD [...] 50 MCG/ACT Nasal Suspension (Flonase) Administer 1 [place] into nostril in the morning. 16 g [...] 01/15/2024 9:30 AM EDT Office Visit Orthopaedics [facility] [address] [place] [address] Rayshawn Spears, [address] [place] [address] 01/19/2024 11:20 AM EDT Office Visit General Internal Medicine [facility] [address] [place] [address] Ta Last MD [address] [place] [address] 01/25/2024 9:20 AM EDT NeuroDiagnostic Study Neurophysiology [facility] [address] [place] [address] Ahmet Murillo, DO [address] [place] [address] [address] 02/05/2024 9:15 AM EDT Hospital Encounter [facility], Operating Room [facility] [address] [place] [phone] Rich Knight, DO [address] [place] [phone] 02/05/2024 9:15 AM EDT - 02/05/2024 9:40 AM EDT Surgery OR [facility], Operating Room [facility] [address] [place] [phone] Rich Knight, DO [address] [place] [address] INJECTION SPINE LUMBAR CERVICAL OR THORACIC 03/05/2024 9:30 AM EDT Office Visit Audiology [facility] [address] [place] [address] Alondra Boyle Au.D. [address] [place] [address] 03/29/2024 11:20 AM EDT Office Visit General Internal Medicine [facility] [address] [place] [address] Ta Last MD [address] [place] [address] Scheduled Procedures Name Priority Associated Diagnoses Date/Ti [...] filedocumented as of this encounter Care Teams Fundraising Specialist Relationship Specialty Start Date End Date Ta Last MD [address] [place] [address] [address] PCP - General Internal Medicine 11/19/18 documented as of this encounter
--- OUTSIDE RECORDS SUMMARY | 2024-01-18 12:55 | External Medical Summary | Summary of Care ---
Author Name Unknown Organization [facility] [address] [facility] [address] Phone [phone] Care Team Providers Care Computational Chemist Name Role Phone Ta Last MD Primary Care Provider + Reason for Visit * Reason Comments Follow Up Here return sleep.2. 5- 3 mo 31-90 starting CPAP. Wants to talk about alternative method. Encounter Details Date Type Department Care Team (Late st Contact Info) Description 01/09/2024 2:20 PM EDT [facility] [place] [phone] Vanessa Hardy DO 132 [facility] [place] [address] TRUNG (obstructive sleep apnea)*; Nocturnal hypoxemia Allergies No known active allergiesdocumented as of [...] 50 MCG/ACT Nasal Suspension (Flonase) Administer 1 [place] into nostril in the morning. 16 g [...] - 09/25/1999 Smokeless Tobacco: Former Quit: 11/20/2014 Tobacco Cessation:Counseling Given: Not Answered Alcohol Use Standard Drinks/Week Comments Yes 4 [...] Sign Reading Time Taken Comments Blood Pressure 140/92 01/09/2024 2:24 PM EDT Pulse 90 01/09/2024 2:24 PM EDT Temperature 36.1 C (97 F) 01/09/2024 2:24 PM EDT Respiratory Rate 16 01/09/2024 2:24 PM EDT Oxygen Saturation 97% 01/09/2024 2:24 PM EDT Inhaled Oxygen Concentration - - Weight 117.9 kg (260 lb) 01/09/2024 2:24 PM EDT Height 181.6 cm (5' 11.5") 01/09/2024 2:24 PM ED T Body Mass Index 35.76 01/09/2024 2:24 PM EDT documented in this encounter Progress Notes * Vanessa Hardy, DO - 01/09/2024 2:30 PM EDT Sleep Medicine Follow-Up Clinic Note HISTORY: Mr. Marvin Benito is a 53 year old male w/ a pmh of HTN, IBS, MDD, and BEBO who is in clinic today for follow up of Obstructive Sleep Apnea and Nocturnal Hypoxemia. Mr. Benito is struggling to tolerate his PAP. He has tried two FFM masks which both have leaked. Currently, he is using an AirFit F40 which is leaking at the corners of his mouth. He is having somedry mouth. He feels he is suffocating at times with it on. He has been taking Gabapentin since lastFall and notes that he notices more sensory sxs in his limbs after taking it. He did not start Flonase. Home Sleep Apnea Test (HSAT) 08/26/23: pAHI 65 (4%) O2 Brandin 61 % <89% O2 234.3 mins Travel Screening Question 01/09/2024 2:01 PM EDT - Filed by Patient Do you have any of the following new or worsening symptoms? None of these Have you recently been in contact with someone who was sick? No / Unsure Lancaster Sleepiness Scale Question 01/09/2024 2:17 PM EDT - Filed by Patient What is the chance you will doze off in the following situation? Sitting and reading Slight chance of dozing Watching TV Slight chance of dozing Sitting inactive in a public place, such as a theater or meeting No chance of dozing As a passenger in a car for an hour without a break No chance of dozing Lying down to rest in the afternoon when circumstances permit Moderate chance of dozing When sitting and talking to someone No chance of dozing When sitting quietly after lunch without alcohol Slight chance of dozing In a car, while stopped for a few minutes in traffic No chance of dozing Score (range: 0 - 24) 5 PAP Compliance: Report date: 12/10/23 to 01/08/24 % total days used: 100% % days used > 4 hours: 73% Average hours a day: 4 hours 41 mins Large leak: 33.8 AHI: 15.7/hr 95% pressure: 11.7 cmH20 Equipment: DME Provider is [facility] 4-18 cmH20. Patient Active Problem List Diagnosis Code Mixed hyperlipidemia E78.2 IBS (irritable bowel syndrome) K58.9 Moderate major depression, single episode (HCC) F32.1 Difficulty with CPAP use Z78.9 TRUNG (obstructive sleep apnea) G47.33 Neuropathy G62.9 Vitamin B12 deficiency E53.8 HTN, goal below 130/80 I10 BEBO (generalized anxiety disorder) F41.1 Testicular pain, right N50.811 Gout M10.9 Mixed emotional features as adjustment reaction F43.29 Outpatient Medications Marked as Taking for the 01/09/24 encounter (Office Visit) with Vanessa Hardy, DO Medication Sig Red Yeast Rice 600 MG Oral Capsule Take by mouth. busPIRone HCl 15 MG Oral Tablet (Buspar) Take 1 Tablet by mouth in the morning and 1 Tablet before bedtime. amLODIPine Besylate 5 MG Oral Tablet (Norvasc) TAKE 1 TABLET BY MOUTH IN THE MORNING Allopurinol 100 MG Oral Tablet (Zyloprim) Take 1 Tablet by mouth in the morning and 1 Tablet beforebedtime. LORazepam 1 MG Oral Tablet (Ativan) Take 0.5 Tablets by mouth every 8 hours as needed for Anxiety. Diclofenac Sodium 1 % External Gel (Voltaren) Apply topically to affected area 4 times a day. Lisinopril-hydroCHLOROthiazide 20-12.5 MG Oral Tablet Take 2 tablets by mouth once daily Citalopram Hydrobromide 40 MG Oral Tablet (CeleXA) Take 1 Tablet by mouth in the morning. Gabapentin 100 MG Oral Capsule (Neurontin) 2 pills in the morning, 2 pills in the afternoon and then 3 pills in the evening Vitamin D3 25 MCG (1000 UT) Oral Tablet (Vitamin D3) Take 1 Tablet by mouth in the morning. Acetaminophen 325 MG Oral Tablet Take 1 Tablet by mouth every 6 hours as needed. As needed for pain B-12 1000 MCG Oral Tablet Take by mouth 1 Tablet daily . FLAX SEED OIL 1000 MG PO CAPS 1 tablet daily IBUPROFEN 200 MG PO CAPS 1-4 tablets once or twice daily as needed. PHYSICAL EXAM: BP 140/92 | Pulse 90 | Temp 36.1 C (97 F) (Tympanic) | Resp 16 | Ht 1.816 m (5' 11.5") | Wt 117.9 kg (260 lb) | SpO2 97% | BMI 35.76 kg/m | BSA 2.44 m Constitutional: Alert, oriented in no acute distress Skin: no markings on face where mask fits Chest: Normal respiratory effort at rest Neuro: Normal speech and comprehension Psych: Appropriate mood and affect ASSESSMENT/PLAN: Severe Obstructive Sleep Apnea Nocturnal Hypoxemia Encouraged continued use of PAP every night, all night and for naps. Adjust PAP range to 8-18 cmH20 Add Chin strap Consider memory foam FFM when next eligible Try to start Flonase (reviewed technique) Recommended routine cleaning and change of supplies as needed. Avoid driving, operating heavy machinery or engaging in any activity that requires full alertness if feeling sleepy, drowsy or otherwise impaired. Obtain overnight oximetry after PAP therapy tolerated and Obstructive Sleep Apnea adequately treated Discussed hypoglossal nerve stimulation Obtain DL in 1-2 months and further increase pressure if indicated (patient agreed to plan) Follow-up with Sleep Medicine in 2 months. Vanessa Hardy DO I spent a total of 30-39 minutes (exact time 39 mins) on the date of service in preparation, delivery, and documentation of the care provided to Marvin Benito excluding any time spent in the performance of separately billed services. documented in this encounter Nursing Notes * Ary Eugene LPN - 01/09/2024 2:30 PM EDT Chief Complaint Patient presents with Follow Up Here return sleep.2.5- 3 mo 31-90 starting CPAP. Wants to talk about alternative method. Travel Screening Question 01/09/2024 2:01 PM EDT - Filed by Patient Do you have any of the following new or worsening symptoms? None of these Have you recently been in contact with someone who was sick? No / Unsure [place] Sleepiness Scale Question 01/09/2024 2:17 PM EDT - Filed by Patient What is the chance you will doze off in the following situation? Sitting and reading Slight chance of dozing Watching TV Slight chance of dozing Sitting inactive in a public place, such as a theater or meeting No chance of dozing As a passenger in a car for an hour without a break No chance of dozing Lying down to rest in the afternoon when circumstances permit Moderate chance of dozing When sitting and talking to someone No chance of dozing When sitting quietly after lunch without alcohol Slight chance of dozing In a car, while stopped for a few minutes in traffic No chance of dozing Score (range: 0 - 24) 5 documented in this encounter Plan of Treatment Upcoming Encounters Date Type Department Care Team (Latest Contact Info) Description 01/15/2024 9:30 AM EDT Office Visit Orthopaedics [facility] [address] [facility] [place] [address] Rayshawn Spears, [address] [facility] [place] [address] 01/19/2024 11:20 AM EDT Office Visit General Internal Medicine [facility] [address] [place] [address] [address] Ta Last MD [address] [place] [address] [address] 01/25/2024 9:20 AM EDT NeuroDiagnostic Study Neurophysiology [facility] [address] [facility] [place] [address] Ahmet Murillo DO 200 [facility] [place] [address] 02/05/2024 9:15 AM EDT Hospital Encounter OR [facility], Operating Room [facility] [address] [place] [phone] Rich Knight, DO [address] [place] [phone] 02/05/2024 9:15 AM EDT - 02/05/2024 9:40 AM EDT Surgery OR [facility], Operating Room [facility] [address] [place] [phone] Rich Knight, DO [address] [place] [address] INJECTION SPINE LUMBAR CERVICAL OR THORACIC 03/05/2024 9:30 AM EDT Office Visit Audiology [facility] [address] [place] [address] Alondra Boyle AuLovely [address] [place] [address] 03/29/2024 11:20 AM EDT Office Visit General Internal Medicine [facility] 200 [facility] [place] [address] Ta Last MD [facility] [address] Scheduled Procedures Name Priority Associated Diagnoses Date/Ti [...] as of this encounter Visit Diagnoses Diagnosis TRUNG (obstructive sleep apnea)- Primary Obstructive sleep apnea (adult) (pediatric) Nocturnal hypoxemia Hypoxemia Cervical radiculitis Brachial neuritis or radiculitis nos documented in this encounter Care Teams Computational Chemist Relationship Specialty Start Date End Date Ta Last MD 200 [facility] [place] [place] [address] PCP - General Internal Medicine 11/19/18 documented as of this encounter
--- OUTSIDE RECORDS SUMMARY | 2024-01-18 12:56 | External Medical Summary | Summary of Care ---
Author Name Unknown Organization [facility] Address [address] [facility] [place] [address] Phone [phone] Care Team Providers Care Food And Beverage Server Name Role Phone Ta Last MD Primary Care Provider + Reason for Visit * Reason Onset Date Comments Test Results 01/03/2024 Encounter Details Date Type Department Care Team (Late st Contact Info) Description 01/03/2024 Telephone General Internal Medicine [facility] [place] 200 [facility] [place] [address] Ta Last MD 200 [place] [address] Test Results Allergies No known active allergiesdocumented [...] encounter Miscellaneous Notes * Addendum Note - Kurt Yun LPN - 01/03/2024 2:00 PM EDTAddended by: KURT YUN on: 01/03/2024 02:00 PM Modules accepted: Orders * Telephone Encounter - Kurt Yun LPN - 01/03/2024 1:59 PM EDT See MyG reply. Ortho referral pending * Telephone Encounter - David Boyer RN - 01/03/2024 11:24 AM EDT Images from the original note were not included. RainKing User Last Read On Marvin Benito 01/03/2024 10:25 AM Patient read FrontstartG message. Closing; inbasket clean-up. If he replies back about PT or Ortho, we can enter referral for provider. Provider to address: n/a Reason for Call: Test Results Contact: Sarita Vital Contact Type: Follow-up Outcome: See above Face to face time spent with Patient (minutes): 0 Total Time including non face to face (minutes): 10 David [facility]EN [facility] Primary Care Nurse Coordinator [facility] (Helping out) * Telephone Encounter - David Boyer RN - 01/03/2024 10:17 AM EDT Images from the original note were not included. Message sent via AdMob. Provider to address: n/a Reason for Call: Test Results Contact: Sarita Vital Contact Type: Test Results Outcome: See above Face to face time spent with Patient (minutes): 0 Total Time including non face to face (minutes): 10 David [facility]EN [facility] Primary Care Nurse Coordinator [facility] (Helping out) * Telephone Encounter - David Boyer RN - 01/03/2024 10:15 AM EDT ----- [...] 1:00 PM EDT Cardiac Studies Card[address] Studies, [address] [address] 01/19/2024 11:20 AM EDT Office Visit General Internal Medicine [facility] [place] 200 [facility] [place] [address] Ta Last MD 200 [facility] [place] [address] 01/25/2024 9:20 AM EDT NeuroDiagnostic Study Neurophysiology [facility] [address] [place] [address] Ahmet Murillo, DO 200 [facility] [place] [address] 02/05/2024 9:15 AM EDT Hospital Encounter OR [facility], Operating Room [facility] [address] [place] [phone] Rich Knight, DO [address] [place] [phone] 02/05/2024 9:15 AM EDT - 02/05/2024 9:40 AM EDT Surgery OR [facility], Operating Room [facility] [address] [place] [phone] Rich Knight, DO [address] [place] [phone] INJECTION SPINE LUMBAR CERVICAL OR THORACIC 03/05/2024 9:30 AM EDT Office Visit Audiology [facility] [address] [place] [address] Alondra Boyle Au.D. [address] [place] [address] 03/13/2024 7:15 AM EDT Cardiac Studies Cardiac Studies, [facility] 132 [facility] [place] [address] 03/22/2024 8:40 AM EDT Office Visit Sleep Disorders Ctr [facility] 132 [facility] [place] [phone] Vanessa Hardy DO [address] [place] [address] 03/29/2024 11:20 AM EDT Office Visit General Internal Medicine [facility] 200 [facility] [place] [address] Ta Last MD 200 [facility] [address] Scheduled Procedures Name Priority Associated Diagnoses Date/Ti [...] nos documented in this encounter Care Teams Food And Beverage Server Relationship Specialty Start Date End Date Ta Last MD 200 [facility] [place], [place] [address] PCP - General Internal Medicine 11/19/18 documented as of this encounter
--- OUTSIDE RECORDS SUMMARY | 2024-01-18 12:56 | External Medical Summary | Summary of Care ---
Author Name Unknown Organization [facility] Address [address] [facility] [place] [address] Phone [phone] Care Team Providers Care International Editorial Producer Name Role Phone Ta Last MD Primary Care Provider + Reason for Visit * Reason Onset Date Comments Test Results 01/03/2024 Encounter Details Date Type Department Care Team (Late st Contact Info) Description 01/03/2024 Telephone General Internal Medicine [facility] [place] 200 [facility] [place] [address] Ta Last MD 200 [place] [address] Test Results Allergies No known active allergiesdocumented [...] note were not included. Message sent via [employer] Empire. Provider to address: n/a Reason for Call: Test Results Contact: Sarita Vital Contact Type: Test Results Outcome: See above Face to face time spent with Patient (minutes): 0 Total Time including non face to face (minutes): 10 David Boyer [employer]PER[employer] ROSI Primary Care Nurse Coordinator [facility] (Helping out) * Telephone Encounter - [...] 1:00 PM EDT Cardiac Studies Cardiac Studies, [address] [address] 01/19/2024 11:20 AM EDT Office Visit General Internal Medicine [facility] 200 [facility] [place] [address] Ta Last MD 200 [facility] [place] [address] 01/25/2024 9:20 AM EDT NeuroDiagnostic Study Neurophysiology [facility] [address] [place] [address] Ahmet Murillo, DO 200 [facility] [place] [address] 02/05/2024 9:15 AM EDT Hospital Encounter OR [facility], Operating Room [facility] [address] [phone] Rich Knight, DO 132 [place] [address] 02/05/2024 9:15 AM EDT - 02/05/2024 9:40 AM EDT Surgery OR [facility], Operating Room [facility] [address] [place] [phone] Rich Knight, DO [address] [place] [phone] INJECTION SPINE LUMBAR CERVICAL OR THORACIC 03/05/2024 9:30 AM EDT Office Visit Audiology [facility] [address] [place] [address] Alondra Boyle Au.D. [address] [place] [address] 03/13/2024 7:15 AM EDT Cardiac Studies Cardiac Studies, [facility] [address] [place] [address] 03/22/2024 8:40 AM EDT Office Visit Sleep Disorders Ctr [facility] [address] [place] [phone] Vanessa Hardy, DO [address] [place] [address] 03/29/2024 11:20 AM EDT Office Visit General Internal Medicine [facility] [address] [place] [address] Ta Last MD 200 [facility] [place] [address] Scheduled Procedures Name Priority Associated Diagnoses Date/Ti me INJECTION SPINE LUMBAR CERVICAL OR THORACIC Cervical radiculitis 02/05/2024 9:15 AM EDT COLONOSCOPY FLEXIBLE PROXIMAL DIAGNOSTIC Recall History of colon polyps Family history of colon cancer Health Maintenance Due Date Last Done Comments Hepatitis B (1 of 3 - 19+ 3-dose series) 1988 COVID-19 Vaccine (3 - 2022-24 season) 2023 03/25/2021, 2021 *NEPHROLOGY REFERRAL DUE [...] filedocumented as of this encounter Care Teams International Editorial Producer Relationship Specialty Start Date End Date Ta Last MD 200 [place] [address] PCP - General Internal Medicine 11/19/18 documented as of this encounter
--- OUTSIDE RECORDS SUMMARY | 2024-01-18 12:56 | External Medical Summary | Summary of Care ---
Author Name Unknown Organization [facility] Address [address] [facility] [place] [address] Phone [phone] Care Team Providers Care Law Firm Receptionist Name Role Phone Ta Last MD Primary Care Provider + Reason for Referral * Evaluate & Treat - Unlimited Visits (Within 24 hrs (call dept; emergent)) - Authorized Specialty Diagnoses / Procedures Referred By Pawan moon Referred To Contact Orthopaedic Surgery / Orthopedics Diagnoses Hip arthritis Ta Last MD [address] [place] [address] Referral ID Status Reason Start Date Expiration Date Visits Requested Visits Authorized [id number] Authorized Specialty Services Required 01/03/2024 999 999 [...] State Yamila Byers [address] [place] [address] [address] Ta Last MD [address] [place] [address] [address] Test Results Allergies No known active allergiesdocumented [...] n/a Reason for Call: Test Results Contact: [facility] Contact Type: Referral(s) Placed Outcome: See above Face to face time spent with Patient (minutes): 0 Total Time including non face to face (minutes): 10 Monster Cantrell RN BSN [facility] Primary Care Nurse Coordinator [facility] (Helping out) * Addendum Note - Kurt Yun LPN - 01/03/2024 2:00 PM EDTAddended by: KURT YUN on: 01/03/2024 02:00 PM Modules accepted: Orders * Telephone Encounter - Kurt Yun LPN - 01/03/2024 1:59 PM EDT See MyG reply. Ortho referral pending * Telephone Encounter - Monster Cantrell RN - 01/03/2024 11:24 AM EDT Images from the original note were not included. Mobile Iront User Last Read On Marvin Benito 01/03/2024 10:25 AM Patient read MyEveTab message. Closing; inbasket clean-up. If he replies back about PT or Ortho, we can enter referral for provider. Provider to address: n/a Reason for Call: Test Results Contact: [facility] Contact Type: Follow-up Outcome: See above Face to face time spent with Patient (minutes): 0 Total Time including non face to face (minutes): 10 Monster PETERSEN [facility] Primary Care Nurse Coordinator [facility] (Helping out) * Telephone Encounter - Monster Cantrell RN - 01/03/2024 10:17 AM EDT Images from the original note were not included. Message sent via MyEveTab. Provider to address: n/a Reason for Call: Test Results Contact: Sarita Huerta Contact Type: Test Results Outcome: See above Face to face time spent with Patient (minutes): 0 Total Time including non face to face (minutes): 10 Monster PETERSEN [facility] Primary Care Nurse Coordinator [facility] (Helping out) * Telephone Encounter - Monster [...] 1:00 PM EDT Cardiac Studies Cardiac Studies, [place] [address] [place] [address] 01/19/2024 11:20 AM EDT Office Visit General Internal Medicine [facility] [place] 200 [facility] [place] [address] Ta Last MD 200 [facility] [place] [address] 01/25/2024 9:20 AM EDT NeuroDiagnostic Study Neurophysiology [facility] [address] [place] [address] Ahmet Murillo DO 200 [facility] [address] 02/05/2024 9:15 AM EDT Hospital Encounter OR [facility], Operating Room [facility] [address] [place] [phone] Rich Knight DO [address] [place] [phone] 02/05/2024 9:15 AM EDT - 02/05/2024 9:40 AM EDT Surgery OR [facility], Operating Room [facility] [address] [place] [phone] Rich Knight, DO [address] [place] [phone] INJECTION SPINE LUMBAR CERVICAL OR THORACIC 03/05/2024 9:30 AM EDT Office Visit Audiology [facility] [address] [place] [address] Alondra Boyle Au.D. [address] [place] [address] 03/13/2024 7:15 AM EDT Cardiac Studies Cardiac Studies, [facility] [address] [place] [address] 03/22/2024 8:40 AM EDT Office Visit Sleep Disorders Ctr [place] [facility] [address] [place] [phone] Vanessa Hardy, [address] [place] [address] 03/29/2024 11:20 AM EDT Office Visit General Internal Medicine [facility] 200 [facility] [place] [address] Ta Last MD 200 [facility] [place] [address] Scheduled Procedures Name Priority Associated Diagnoses Date/Ti [...] nos documented in this encounter Care Teams Law Firm Receptionist Relationship Specialty Start Date End Date Ta Last MD 200 [facility] [place] [address] PCP - General Internal Medicine 11/19/18 documented as of this encounter
--- OUTSIDE RECORDS SUMMARY | 2024-01-18 12:56 | External Medical Summary | Summary of Care ---
Author Name Unknown Organization [facility] Address [address] [facility] [place] [address] Phone [phone] Care Team Providers Care Employee Relations Assistant Name Role Phone Ta Last MD Primary Care Provider + Reason for Visit * Reason Onset Date Comments Test Results 01/03/2024 Encounter Details Date Type Department Care Team (Late st Contact Info) Description 01/03/2024 Telephone General Internal Medicine [facility] [place] 200 [facility] [place] [address] Ta Last MD 200 [place] [address] Test Results Allergies No known active allergiesdocumented [...] from the original note were not included. [employer] User Last Read On Marvin Benito 01/03/2024 10:25 AM Patient read OohlyG message. Closing; inbasket clean-up. If he replies back about PT or Ortho, we can enter referral for provider. Provider to address: n/a Reason for Call: Test Results Contact: Sarita Vital Contact Type: Follow-up Outcome: See above Face to face time spent with Patient (minutes): 0 Total Time including non face to face (minutes): 10 David PETERSEN [facility] Primary Care Nurse Coordinator [facility] (Helping out) * Telephone Encounter - David Boyer RN - 01/03/2024 10:17 AM EDT Images from the original note were not included. Message sent via Palmer Hargreaves. Provider to address: n/a Reason for Call: Test Results Contact: Sarita Vital Contact Type: Test Results Outcome: See above Face to face time spent with Patient (minutes): 0 Total Time including non face to face (minutes): 10 David PETERSEN [facility] Primary Care Nurse Coordinator [facility] (Helping [...] 1:00 PM EDT Cardiac Studies Card[address] Studies, [address] [address] 01/19/2024 11:20 AM EDT Office Visit General Internal Medicine [facility] [place] 200 [facility] [place] [address] Ta Last MD 200 [facility] [place] [address] 01/25/2024 9:20 AM EDT NeuroDiagnostic Study Neurophysiology [facility] [address] [place] [address] Ahmet Murillo, DO 200 [facility] [place] [address] 02/05/2024 9:15 AM EDT Hospital Encounter OR [facility], Operating Room [facility] [address] [place] [phone] Rich Knight, DO [address] [place] [phone] 02/05/2024 9:15 AM EDT - 02/05/2024 9:40 AM EDT Surgery OR [facility], Operating Room [facility] [address] [place] [phone] Rich Knight, DO [address] [place] [phone] INJECTION SPINE LUMBAR CERVICAL OR THORACIC 03/05/2024 9:30 AM EDT Office Visit Audiology [facility] [address] [place] [address] Alondra Boyle Au.D. [address] [place] [address] 03/13/2024 7:15 AM EDT Cardiac Studies Cardiac Studies, [facility] 132 [facility] [place] [address] 03/22/2024 8:40 AM EDT Office Visit Sleep Disorders Ctr [facility] 132 [facility] [place] [phone] Vanessa Hardy DO [address] [place] [address] 03/29/2024 11:20 AM EDT Office Visit General Internal Medicine [facility] 200 [facility] [place] [address] Ta Last MD 200 [facility] [address] Scheduled Procedures Name Priority Associated Diagnoses Date/Ti [...] nos documented in this encounter Care Teams Employee Relations Assistant Relationship Specialty Start Date End Date Ta Last MD 200 [facility] [place], [place] [address] PCP - General Internal Medicine 11/19/18 documented as of this encounter
--- OUTSIDE RECORDS SUMMARY | 2024-01-18 12:56 | External Medical Summary | Summary of Care ---
Author Name Unknown Organization [facility] Address [address] [facility] [place] [address] Phone [phone] Care Team Providers Care Runstitching Machine Operator Name Role Phone Ta Last MD Primary Care Provider + Reason for Visit * Reason Onset Date Comments Test Results 01/03/2024 Encounter Details Date Type Department Care Team (Late st Contact Info) Description 01/03/2024 Telephone General Internal Medicine [facility] [place] 200 [facility] [place] [address] Ta Last MD 200 [place] [address] Test Results Allergies No known active allergiesdocumented [...] from the original note were not included. [employer] User Last Read On Marvin Benito 01/03/2024 10:25 AM Patient read Idle Free SystemsG message. Closing; inbasket clean-up. If he replies back about PT or Ortho, we can enter referral for provider. Provider to address: n/a Reason for Call: Test Results Contact: Sarita [facility] Contact Type: Follow-up Outcome: See above Face to face time spent with Patient (minutes): 0 Total Time including non face to face (minutes): 10 David PETERSEN [facility] Primary Care Nurse Coordinator [facility] (Helping out) * Telephone Encounter - David Boyer RN - 01/03/2024 10:17 AM EDT Images from the original note were not included. Message sent via [employer]. Provider to address: n/a Reason for Call: Test Results Contact: Sarita Vital Contact Type: Test Results Outcome: See above Face to face time spent with Patient (minutes): 0 Total Time including non face to face (minutes): 10 David PETERSEN [facility] Primary Care Nurse Coordinator [facility] (Helping out) * Telephone Encounter - [...] 1:00 PM EDT Cardiac Studies Cardiac Studies, [address] [address] 01/19/2024 11:20 AM EDT Office Visit General Internal Medicine [place] [address] [place], [place] [address] Ta Last MD [address] [place], [place] [address] 01/25/2024 9:20 AM EDT NeuroDiagnostic Study Neurophysiology [facility] [address] [place] [address] Ahmet Murillo, DO [address] [place] [address] 02/05/2024 9:15 AM EDT Hospital Encounter OR [facility], Operating Room [facility] [address] [place] [phone] Rich Knight, DO [address] [place] [phone] 02/05/2024 9:15 AM EDT - 02/05/2024 9:40 AM EDT Surgery OR [facility], Operating Room [facility] [address] [place] [phone] Rich Knight, DO [address] [place] [phone] INJECTION SPINE LUMBAR CERVICAL OR THORACIC 03/05/2024 9:30 AM EDT Office Visit Audiology [facility] [address] [place] [address] Alondra Boyle Au.D. [address] [place] [address] 03/13/2024 7:15 AM EDT Cardiac Studies Cardiac Studies, [facility] [address] [place] [address] 03/22/2024 8:40 AM EDT Office Visit Sleep Disorders Ctr [facility] [address] [place] [phone] Vanessa Hardy, [address] [place] [address] 03/29/2024 11:20 AM EDT Office Visit General Internal Medicine [facility] Michaelle [place] 200 [facility] [place] [address] Ta Last MD 200 [facility] [place] [address] Scheduled Procedures Name Priority Associated Diagnoses Date/Ti [...] filedocumented as of this encounter Care Teams Runstitching Machine Operator Relationship Specialty Start Date End Date Ta Last MD 200 [facility] [place] [address] PCP - General Internal Medicine 11/19/18 documented as of this encounter
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
--- OUTSIDE RECORDS SUMMARY | 2024-01-18 12:57 | External Medical Summary | Summary of Care ---
Author Name Unknown Organization [facility] Address [address] [facility] [place] [address] Phone [phone] Care Team Providers Care Cell Liner Name Role Phone Ta Last MD Primary Care Provider + Reason for Visit * Reason Onset Date Comments Test Results 12/29/2023 Encounter Details Date Type Department Care Team (Late st Contact Info) Description 12/29/2023 Telephone General Internal Medicine [facility] [place] 200 [facility] [place] [address] aT Last MD 200 [place] [address] Test Results Allergies No known active allergiesdocumented [...] face to face (minutes): 10 David Boyer RESIDENTIAL SOLAR CONSULTANT ROSI Primary Care Nurse Coordinator [facility] (Helping [...] AM EDT Office Visit General Internal Medicine [facility] 200 [facility] [place] [address] Ta Last MD 200 [facility] [place] [address] 01/25/2024 9:20 AM EDT NeuroDiagnostic Study Neurophysiology [facility] 132 [place] [address] Ahmet Murillo 200 [place] [address] 02/05/2024 9:15 AM EDT Hospital Encounter OR [facility], Operating Room [facility] [address] [place] [phone] Rich Knight, 132 [place] [phone] 02/05/2024 9:15 AM EDT - 02/05/2024 9:40 AM EDT Surgery OR [facility], Operating Room [facility] [address] [place] [phone] Rich Knight, DO [address] [place] [phone] INJECTION SPINE LUMBAR CERVICAL OR THORACIC 03/05/2024 9:30 AM EDT Office Visit Audiology [facility] [address] [place] [address] Alondra Boyle Au.D. [address] [place] [address] 03/22/2024 8:40 AM EDT Office Visit Sleep Disorders Ctr [facility] [address] [place] [phone] Vanessa Hardy DO [address] [place] [address] 03/29/2024 11:20 AM EDT Office Visit General Internal Medicine [facility] 200 [facility] [place] [address] Ta Last MD 200 [place] [address] Scheduled Procedures Name Priority Associated Diagnoses Date/Ti me INJECTION SPINE LUMBAR CERVICAL OR THORACIC Cervical radiculitis 02/05/2024 9:15 AM EDT COLONOSCOPY FLEXIBLE PROXIMAL DIAGNOSTIC Recall History of colon polyps Family history of colon cancer Health Maintenance Due Date Last Done Comments Hepatitis B (1 of 3 - 19+ 3-dose series) 1988 COVID-19 Vaccine (2022- season) 2023 03/25/2021, 2021 Depression Screening 09/01/2023 09/01/2022 Influenza Vaccine (FLU shot) (Season Ended) 2024 GFR 11/16/2024 11/16/2023, 07/09/2022, 03/03/2023, Additional history exists Albumin/Creatinine Ratio 02/07/2026 [...] filedocumented as of this encounter Care Teams Cell Liner Relationship Specialty Start Date End Date Ta Last MD 200 [facility], [place] [address] PCP - General Internal Medicine 11/19/18 documented as of this encounter
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
--- OUTSIDE RECORDS SUMMARY | 2024-01-18 12:57 | External Medical Summary | Summary of Care ---
Author Name Unknown Organization [facility] Address [address] [facility] [place] [address] Phone [phone] Care Team Providers Care Piano Case Maker Name Role Phone Ta Last MD Primary Care Provider + Reason for Visit * Reason Onset Date Comments Test Results 12/29/2023 Encounter Details Date Type Department Care Team (Late st Contact Info) Description 12/29/2023 Telephone General Internal Medicine [facility] [place] 200 [facility] [place] [address] Ta Last MD 200 [facility] [address] Test Results Allergies No known active allergiesdocumented [...] Encounter - Elizabeth Erickson OSA - 01/02/2024 6:09 PM EDT Patient scheduled for Echo on January 04 in [place]. 01/02/2024 * Telephone Encounter - Doberstein, Ta F, MD - 01/01/2024 8:27 AM EDT Can echo be moved up? * Telephone Encounter - David Boyer RN - 12/29/2023 3:26 PM EDT Images from the original note were not included. Please see the patient's message. Thank you! OK to wait until 03/13 for an EKG? [place] [facility] [place] for Call: Test Results Contact: [facility] Contact Type: Follow-up Outcome: See above Face to face time spent with Patient (minutes): 0 Total Time including non face to face (minutes): 10 David PETERSEN [facility] Primary Care Nurse Coordinator [facility] ([facility]ping [facility]) * Telephone Encounter - David Boyer RN - 12/29/2023 1:51 PM EDT Message sent via [employer]. Provider to address: n/a Reason for Call: Test Results Contact: Sarita [facility] Contact Type: Test Results Outcome: See above Face to face time spent with Patient (minutes): 0 Total Time including non face to face (minutes): 10 David PETERSEN [facility] Primary Care Nurse Coordinator [facility] (Helping [facility]) * Telephone Encounter - David Boyer RN - 12/29/2023 1:47 PM EDT ----- Message from Ta Last MD sent at 12/29/2023 8:20 AM EDT ----- Sternum looks ok, if pain worsens, no better 3-4 weeks, let me know t/c ct then documented in this encounter Plan of Treatment Upcoming Encounters Date Type Department Care Team (Latest Contact Info) Description 01/05/2024 12:00 PM EDT Cardiac Studies Cardiac Studies, [place] Townsend [place] [address] 01/19/2024 11:20 AM EDT Office Visit General Internal Medicine [facility] [address] [facility] [place] [address] Ta Last MD 200 [facility] [place] [address] 01/25/2024 9:20 AM EDT NeuroDiagnostic Study Neurophysiology [facility] [address] [place] [address] Ahmet Murillo, 200 [facility] [place] [address] 02/05/2024 9:15 AM EDT Hospital Encounter OR [facility], Operating Room [facility] [address] [place] [phone] Rich Knight, DO [address] [place] [address] 02/05/2024 9:15 AM EDT - 02/05/2024 9:40 AM EDT Surgery OR [facility], Operating Room [facility] [address] [place] [address] Rich Knight, DO [address] [place] [address] INJECTION SPINE LUMBAR CERVICAL OR THORACIC 03/05/2024 9:30 AM EDT Office Visit Audiology [facility] [address] [place] [address] Alondra Boyle Au.D. [address] [place] [address] 03/13/2024 7:15 AM EDT Card[facility] [address] [facility] [place] [address] 03/22/2024 8:40 AM EDT [facility] [address] [facility] [place] [phone] Vanessa Hardy DO 132 [facility] [place] [address] 03/29/2024 11:20 AM EDT Office Visit General Internal Medicine [facility] 200 [facility] [place] [address] Ta Last MD 200 [facility] [place] [address] Scheduled Procedures Name Priority Associated Diagnoses Date/Ti [...] filedocumented as of this encounter Care Teams Piano Case Maker Relationship Specialty Start Date End Date Ta Last MD 200 [place] [address] PCP - General Internal Medicine 11/19/18 documented as of this encounter
--- OUTSIDE RECORDS SUMMARY | 2024-01-18 12:57 | External Medical Summary | Summary of Care ---
Author Name Unknown Organization [facility] Address [address] [facility] [place] [address] Phone [phone] Care Team Providers Care Top Tile Decorator Name Role Phone Ta Last MD Primary Care Provider + Reason for Referral * Precert (Within 10 days (routine)) - Authorized Specialty Diagnoses / Procedures Referred By Contac t Referred To Contact Cardiac Studies Diagnoses BENTON (dyspnea on exertion) Procedures ECHO, COMPLETE (2D), TRANS-THORACIC Ta Last MD [address] [place], [place] [address] Referral ID Status Reason Start Date Expiration Date V isits Requested Visits Authorized [id number] Authorized Precert 12/29/2023 999 999 Reason for Visit * Reason Comments Follow Up 6mo return--patient has a list of issues he would like to discuss including back pain, shortness of breath, swelling, neuropathy, headaches, quit drinking liquor in November. Encounter Details Date Type Department Care Team (Latest Contact Info) Description 12/28/2023 8:40 AM EDT Office Visit General Internal Medicine [facility] [address] [place] [address] [address] Ta Last MD [address] [place] [address] [address] Hip pain, right*; HTN, goal below 130/80; Neuropathy; BENTON (dyspnea on exertion); Gout, unspecified cause, unspecified chronicity, unspecified site; History of alcohol abuse; Chronic neck pain; TRUNG (obstructive sleep apnea); Sternal pain; PTSD (post-traumatic stress disorder); Elevated triglycerides with high cholesterol; Moderate major depression, single episode (HCC); Mixed emotional features as adjustment reaction Allergies No known active allergiesdocumented as of [...] + 3-dose series) Never done COVID-19 Vaccine (2022-) 05/26/2023 Depression Screening 09/01/2023 ROS: CONSTITUTIONAL: No fevers, [...] level: Not on file Occupational History Occupation: [employer] Employer: [employer] Tobacco Use Smoking status: Former Current packs/day: [...] performed by Javon Noriega MD at [facility] COLONOSCOPY, DIAGNOSTIC (RECTUM) 06/27/2022 benign adenomatous polyp, repeat 5 yrs / COLONOSCOPY FLEXIBLE PROXIMAL DIAGNOSTIC performed by Evgeny Barreto MD at [facility]OSCOPY [facility] DENTAL SURGERY PROCEDURE NEC ELBOW TENOTOMY REPAIR, PERC Left 11/2019 [facility] HAND/FINGER SURGERY NEC Right 2014 [facility] - 4/5 digit fx repair, ulnar nerve/band repair Family History Problem Relation Age of Onset Diabetes Mother Hypertension Mother Pulmonary embolism Mother 80 Diabetes Father Cancer Father colon Hypertension Father OBJECTIVE: PHYSICAL EXAM: BP 142/92 | Pulse 75 | Temp 36.8 C (98.2 F) (Tympanic) | Wt 119.7 kg (264 lb) | SpO2 97% | BMI36.31 kg/m | BSA 2.46 m General: alert, [...] AM EDT Office Visit General Internal Medicine [facility] 200 [facility] [place] [address] Ta Last MD 200 [facility] [place] [address] 01/25/2024 9:20 AM EDT NeuroDiagnostic Study Neurophysiology [facility] [address] [place] [address] Ahmet Murillo DO 200 [facility] [place] [address] 02/05/2024 9:15 AM EDT Hospital Encounter OR [facility], Operating Room [facility] [address] [place] [phone] Rich Knight, [address] [place] [phone] 02/05/2024 9:15 AM EDT - 02/05/2024 9:40 AM EDT Surgery OR [facility], Operating Room [facility] [address] [place] [phone] Rich Knight, [address] [place] [address] INJECTION SPINE LUMBAR CERVICAL OR THORACIC 03/05/2024 9:30 AM EDT Office Visit Audiology [facility] [address] [place] [address] Alondra Boyle Au.D. [address] [place] [address] 03/22/2024 8:40 AM EDT Office Visit Sleep Disorders Ctr [facility] [place] [address] [place] [phone] Vanessa Hardy DO [address] [place] [address] 03/29/2024 11:20 AM EDT Office Visit [facility] [place] 200 [facility] [place] [address] Ta Last MD 200 [facility] [place] [address] Pending Results Name Type Priority Associated Diagnoses Date /Time XR HIP UNILAT 2-3 VIEWS INCLUDING AP PELVIS Medical Imaging Routine Hip pain, right 12/28/2023 11:12 AM EDT XR L SPINE AP AND LATERAL Medical Imaging Routine Hip pain, right 12/28/2023 11:12 AM EDT Scheduled Orders Name Type Priority Associated Diagnoses [...] 12/27/2024 ECHO, COMPLETE (2D), TRANS-THORACIC Echocardiology Routine BENTON (dyspnea on exertion) Expected: 12/29/2023 (Approximate), Expires: 12/28/2024 Scheduled Procedures Name Priority Associated Diagnoses Date/Ti me INJECTION SPINE LUMBAR CERVICAL OR THORACIC Cervical radiculitis 02/05/2024 9:15 AM EDT COLONOSCOPY FLEXIBLE PROXIMAL DIAGNOSTIC Recall History of colon polyps Family history of colon cancer Health Maintenance Due Date Last Done Comments Hepatitis B (1 of 3 - 19+ 3-dose series) 1988 COVID-19 Vaccine (3 - 2022- season) 2023 03/25/2021, 2021 Depression [...] AM EDT BENTON (dyspnea on exertion) XR STERNUM MINIMUM 2 VIEWS Routine 12/28/2023 11:12 AM EDT Sternal pain documented in this encounter Results * XR STERNUM MINIMUM 2 VIEWS (12/28/2023 [...] No active disease. Ta Last MD RADIOLOGY (MICHAEL BAUER) documented [...] disorder with mixed anxiety and depressed mood Cervical radiculitis Brachial neuritis or radiculitis nos documented in this encounter Care Teams Top Tile Decorator Relationship Specialty Start Date End Date Ta Last MD [address] [place] [address] PCP - General Internal Medicine 11/19/18 documented as of this encounter
--- OUTSIDE RECORDS SUMMARY | 2024-01-18 12:57 | External Medical Summary | Summary of Care ---
Author Name Unknown Organization [facility] Address [address] [facility] [place] [address] Phone [phone] Care Team Providers Care Parts Specialist Name Role Phone Ta Last MD Primary Care Provider + Reason for Visit * Reason Onset Date Comments Test Results 12/29/2023 Encounter Details Date Type Department Care Team (Late st Contact Info) Description 12/29/2023 Telephone General Internal Medicine [facility] [place] 200 [facility] [place] [address] Ta Lats MD 200 [facility] [address] Test Results Allergies No known active allergiesdocumented [...] face to face (minutes): 10 David Boyer SEQUINS WINDER ROSI Primary Care Nurse Coordinator [facility] (Helping out) * Telephone Encounter - [...] AM EDT Office Visit General Internal Medicine [facility] 200 [facility] [place] [address] Ta Last MD 200 [facility] [place] [address] 01/25/2024 9:20 AM EDT NeuroDiagnostic Study Neurophysiology [facility] 132 [place] [address] Ahmet Murillo 200 [facility] [place] [address] 02/05/2024 9:15 AM EDT Hospital Encounter OR [facility]SS[facility], Operating Room [facility] [address] [place] [phone] Rich Knight, 132 [place] [phone] 02/05/2024 9:15 AM EDT - 02/05/2024 9:40 AM EDT Surgery OR [facility], Operating Room [facility] [address] [place] [phone] Rich Knight, DO [address] [place] [phone] INJECTION SPINE LUMBAR CERVICAL OR THORACIC 03/05/2024 9:30 AM EDT Office Visit Audiology [facility] [address] [place] [address] Alondra Boyle Au.D. [address] [place] [address] 03/13/2024 7:15 AM EDT Cardiac Studies Cardiac Studies, [facility] [place] [address] 03/22/2024 8:40 AM EDT Office Visit Sleep Disorders Ctr [facility] [address] [place] [phone] Vanessa Hardy, DO [address] [place] [address] 03/29/2024 11:20 AM EDT Office Visit General Internal Medicine [facility] 200 [facility] [place] [address] Ta Last MD 200 [facility] [place] [address] Scheduled Procedures Name Priority Associated Diagnoses Date/Ti [...] filedocumented as of this encounter Care Teams Parts Specialist Relationship Specialty Start Date End Date Ta Last MD 200 [place] [address] PCP - General Internal Medicine 11/19/18 documented as of this encounter
--- OUTSIDE RECORDS SUMMARY | 2024-01-18 12:57 | External Medical Summary | Summary of Care ---
Author Name Unknown Organization [facility] [address] [facility] [place] [address] Phone [phone] Care Team Providers Care General Operator Name Role Phone Ta Last MD Primary Care Provider + Reason for Visit * Reason Onset Date Comments Appointment 12/28/2023 Encounter Details Date Type Department Care Team (Late st Contact Info) Description 12/28/2023 Telephone General Internal Medicine [facility] [place] 200 [facility] [place] [address] Ta Last MD 200 [facility] [place] [address] Appointment Allergies No known active allergiesdocumented as [...] Encounter - Elizabeth Erickson OSA - 01/02/2024 6:06 PM EDT Scheduled. 01/02/2024 * Telephone Encounter - Madeleine Jackson OSA - 12/28/2023 9:22 AM EDT Pt needs emg scheduled. Pt confirmed phone number on file . Please call pt to set up an appt. ABISAI BENITO : 1970 Age: 53 Sex: Male Home: Patient Preference: Work: Billing #: [id number] Dept: GEN INT MED [facility] POD3 200 [facility] [place] [address] Authorizing Provider: Ta Last MD Interpreting Provider: Other: ___EMG CPT4 Code: [id number] Order Date: 12/28/2023 Priority: Routine Modifiers: Status: Sent Associated Diagnosis Description and Code: Neuropathy (G62.9) Reason for study: worsening neuropathy in legs Can patient get on exam table unassisted? No documented in this encounter Plan of Treatment Upcoming Encounters Date Type Department Care Team (Latest Contact Info) Description 01/05/2024 1:00 PM EDT Cardiac Studies Cardiac Studies, [address] [address] 01/19/2024 11:20 AM EDT Office Visit General Internal Medicine [facility] 200 [facility] [place] [address] Ta Last MD 200 [facility] [place] [address] 01/25/2024 9:20 AM EDT NeuroDiagnostic Study Neurophysiology [facility] [place] 132 [facility] [place] [address] Ahmet Murillo DO [address] [place] [place] [address] 02/05/2024 9:15 AM EDT Hospital Encounter OR [facility], Operating Room [facility] [address] [place] [phone] Rich Knight, DO [address] [place] [phone] 02/05/2024 9:15 AM EDT - 02/05/2024 9:40 AM EDT Surgery OR [facility], Operating Room [facility] [address] [place] [phone] Rich Knight, DO [address] [place] [address] INJECTION SPINE LUMBAR CERVICAL OR THORACIC 03/05/2024 9:30 AM EDT [facility] [address] [place] [address] Alondra Boyle Au.D. [address] [place] [address] 03/13/2024 7:15 AM EDT Cardiac Studies Cardiac Studies, [facility] [address] [place] [address] 03/22/2024 8:40 AM EDT Office Visit Sleep Disorders Ctr [facility] [address] [place] [phone] Vanessa Hardy, DO [address] [place] [address] 03/29/2024 11:20 AM EDT Office Visit General Internal Medicine [facility] [place] 200 [facility] [place] [address] Ta Last MD 200 [facility] [place] [address] Scheduled Procedures Name Priority Associated Diagnoses Date/Ti [...] filedocumented as of this encounter Care Teams General Operator Relationship Specialty Start Date End Date Ta Last MD [address] [place], [place] [address] PCP - General Internal Medicine 11/19/18 documented as of this encounter
--- OUTSIDE RECORDS SUMMARY | 2024-01-18 12:57 | External Medical Summary | Summary of Care ---
Author Name Unknown Organization [facility] Address [address] [facility] [place] [address] Phone [phone] Care Team Providers Care Nurse Research Name Role Phone aT Last MD Primary Care Provider + Reason for Visit * Reason Onset Date Comments Test Results 01/03/2024 Encounter Details Date Type Department Care Team (Late st Contact Info) Description 01/03/2024 Telephone General Internal Medicine [facility] [place] 200 [facility] [place] [address] Ta Last MD 200 [place] [place] [address] Test Results Allergies No known active allergiesdocumented [...] note were not included. Message sent via [employer]. Provider to address: n/a Reason for Call: Test Results Contact: Sarita Vital Contact Type: Test Results Outcome: See above Face to face time spent with Patient (minutes): 0 Total Time including non face to face (minutes): 10 David Boyer UTILIZATION MANAGER ROSI Primary Care Nurse Coordinator [facility] [...] 1:00 PM EDT Cardiac Studies Cardiac Studies, [address] [address] 01/19/2024 11:20 AM EDT Office Visit General Internal Medicine [facility] 200 [facility] [place] [address] Ta Last MD 200 [facility] [place] [address] 01/25/2024 9:20 AM EDT NeuroDiagnostic Study Neurophysiology [facility] [address] [place] [address] Ahmet Murillo, DO 200 [facility] [place] [address] 02/05/2024 9:15 AM EDT Hospital Encounter OR [facility], Operating Room [facility] [address] [place] [phone] Rich Knight, DO 132 [place] [address] 02/05/2024 9:15 AM EDT - 02/05/2024 9:40 AM EDT Surgery OR [facility], Operating Room [facility] [address] [place] [phone] Rich Knight, DO [address] [place] [phone] INJECTION SPINE LUMBAR CERVICAL OR THORACIC 03/05/2024 9:30 AM EDT Office Visit Audiology [facility] [address] [place] [address] Alondra Boyle Au.D. [address] [place] [address] 03/13/2024 7:15 AM EDT Cardiac Studies Cardiac Studies, [facility] [address] [place] [address] 03/22/2024 8:40 AM EDT Office Visit Sleep Disorders Ctr [facility] [address] [place] [phone] Vanessa Hardy, DO [address] [place] [address] 03/29/2024 11:20 AM EDT Office Visit General Internal Medicine [facility] [address] [place] [address] Ta Last MD 200 [facility] [place] [address] Scheduled Procedures Name Priority Associated Diagnoses Date/Ti [...] filedocumented as of this encounter Care Teams Nurse Research Relationship Specialty Start Date End Date Ta Last MD 200 [place] [place] [address] PCP - General Internal Medicine 11/19/18 documented as of this encounter
--- OUTSIDE RECORDS SUMMARY | 2024-01-18 12:57 | External Medical Summary | Summary of Care ---
Author Name Unknown Organization [facility] Address [address] [facility] [place] [address] Phone [phone] Care Team Providers Care Manufacturing Team Member Name Role Phone Ta Last MD Primary Care Provider + Reason for Visit * Reason Onset Date Comments Test Results 12/29/2023 Encounter Details Date Type Department Care Team (Late st Contact Info) Description 12/29/2023 Telephone General Internal Medicine [facility] [place] 200 [facility] [place] [address] Ta Last MD 200 [place] [address] Test Results Allergies No known active allergiesdocumented [...] face to face (minutes): 10 David Boyer FEATHER MAKER ROSI Primary Care Nurse Coordinator [facility] ([facility]) * Telephone Encounter [...] AM EDT Office Visit General Internal Medicine [facility] 200 [facility] [place] [address] Ta Last MD 200 [facility] [place] [address] 01/25/2024 9:20 AM EDT NeuroDiagnostic Study Neurophysiology [facility] [address] [place] [address] Ahmet Murillo 200 [place] [address] 02/05/2024 9:15 AM EDT Hospital Encounter OR [facility]SS[facility], Operating Room [facility]SS [address] [place] [phone] Rich Knight, 132 [place] [phone] 02/05/2024 9:15 AM EDT - 02/05/2024 9:40 AM EDT Surgery OR [facility], Operating Room OSS [address] [place] [phone] Rich Knight, DO [address] [place] [phone] INJECTION SPINE LUMBAR CERVICAL OR THORACIC 03/05/2024 9:30 AM EDT Office Visit Audiology [facility] [address] [place] [address] Alondra Boyle Au.D. [address] [place] [address] 03/22/2024 8:40 AM EDT Office Visit Sleep Disorders Ctr [facility] [address] [place] [phone] Vanessa Hardy DO [address] [place] [address] 03/29/2024 11:20 AM EDT Office Visit General Internal Medicine [facility] 200 [facility] [place] [address] Ta Last MD 200 [place] [address] Scheduled Procedures Name Priority Associated Diagnoses Date/Ti [...] filedocumented as of this encounter Care Teams Manufacturing Team Member Relationship Specialty Start Date End Date Ta Last MD 200 [facility], [place] [address] PCP - General Internal Medicine 11/19/18 documented as of this encounter
--- OUTSIDE RECORDS SUMMARY | 2024-01-18 12:57 | External Medical Summary | Summary of Care ---
Author Name Unknown Organization [facility] Address [address] [facility] [place] [address] Phone [phone] Care Team Providers Care Supplier Engineer Name Role Phone Ta Last MD Primary Care Provider + Reason for Visit * Reason Onset Date Comments Test Results 12/29/2023 Encounter Details Date Type Department Care Team (Late st Contact Info) Description 12/29/2023 Telephone General Internal Medicine [facility] [place] 200 [facility] [place] [address] Ta Last MD 200 [facility] [place] [address] Test Results Allergies No known active allergiesdocumented [...] 03/13 for an EKG? Provider to address: MyG Reason for Call: Test Results Contact: My Gegonsaloer Contact Type: Follow-up Outcome: See above Face to face time spent with Patient (minutes): 0 Total Time including non face to face (minutes): 10 David [facility] Primary Care Nurse Coordinator [facility] (Helping out) * Telephone Encounter - David Boyer RN - 12/29/2023 1:51 PM EDT Message sent via Diaferon. Provider to address: n/a Reason for Call: Test Results Contact: Sarita gonsalo Contact Type: Test Results Outcome: See above Face to face time spent with Patient (minutes): 0 Total Time including non face to face (minutes): 10 David [facility] Primary Care Nurse Coordinator [facility] (Helping out) * Telephone Encounter - David [...] Office Visit General Internal Medicine [facility] [place] [address] [place] [address] Ta Last MD [address] [facility] [place] [address] 01/25/2024 9:20 AM EDT NeuroDiagnostic Study Neurophysiology [facility] [place] 132 [facility] [place] [address] Ahmet Murillo, DO 200 [facility] [place] [address] 02/05/2024 9:15 AM EDT Hospital Encounter OR [facility], Operating Room [facility] [address] [place] [phone] Rich Knight, DO [address] [place] [phone] 02/05/2024 9:15 AM EDT - 02/05/2024 9:40 AM EDT Surgery OR [facility], Operating Room [facility] [address] [place] [phone] Rich Knight, DO [address] [place] [phone] INJECTION SPINE LUMBAR CERVICAL OR THORACIC 03/05/2024 9:30 AM EDT [facility] [address] [place] [address] Alondra Boyle Au.D. [address] [place] [address] 03/13/2024 7:15 AM EDT Cardiac Studies Cardiac Studies, Tiffany Arteaga [place] [address] [place] [address] 03/22/2024 8:40 AM EDT Office Visit [facility] [place] [address] [place] [phone] Vanessa Hardy, DO [address] [place] [address] 03/29/2024 11:20 AM EDT Office Visit General Internal Medicine [facility] [place] [address] [place] [address] Ta Last MD 200 [place] [address] Scheduled Procedures Name Priority Associated Diagnoses Date/Ti [...] filedocumented as of this encounter Care Teams Supplier Engineer Relationship Specialty Start Date End Date Ta Last MD [address] [place], [place] [id number] PCP - General Internal Medicine 11/19/18 documented as of this encounter
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
--- OUTSIDE RECORDS SUMMARY | 2024-01-18 12:58 | External Medical Summary ---
Author Name Unknown Address Unknown Organization [id number]:LABORATORY [facility] [place] - [address] [place] [address] Laboratory Report Ordering Provider Test Date Status QUINTON RENE 12/25/2023 09:35:11 Final Observation Date Value Abnormality Reference (Units ) Status LDL, (direct) 12/25/2023 09:35:11 133 Above high bree l <=129 (mg/dL) Final LDL Cholesterol Reference Ra nges (mg/dL):
<70 Target level for high risk ASCVD patient
<100 Optimal for general population
100-129 Near optimal for general population
130-159 Borderline high
160-189 High
>=190 Very high Performing Location LABORATORY C - [address] [place] [address]
--- OUTSIDE RECORDS SUMMARY | 2024-01-18 12:58 | External Medical Summary ---
Author Name Unknown Address Unknown Organization [id number]:LABORATORY [facility] [place] - [address] [place] [address] Laboratory Report Ordering Provider Test Date Status QUINTON RENE 11/16/2023 11:12:32 Final Observation Date Value Abnormality Reference (Units ) Status LDL, (direct) 11/16/2023 11:12:32 107 <=129 (mg/dL) Final LDL Cholesterol Reference Ra nges (mg/dL):
<70 Target level for high risk ASCVD patient
<100 Optimal for general population
100-129 Near optimal for general population
130-159 Borderline high
160-189 High
>=190 Very high Performing Location LABORATORY [facility] - [address] [place] [address]
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
--- OUTSIDE RECORDS SUMMARY | 2024-01-18 12:58 | External Medical Summary | Summary of Care ---
Author Name Unknown Organization [facility] Address [address] [facility] [place] [address] Phone [phone] Care Team Providers Care Bore Mill Operator Name Role Phone Ta Last MD Primary Care Provider + Reason for Visit * Reason Onset Date Comments MyCode Nonconsent - Not interested at this time 12/28/2023 Encounter Details Date Type Department Care Team (Late st Contact Info) Description 12/28/2023 Orders Only Outcomes Research Department [address] [place] [facility] [place] [address] Justina, Tania, CHRA MyCode Nonconsent Documentation Allergies No known active allergiesdocumented as of [...] as of this encounter Progress Notes * Tania Horn CHRA - 12/28/2023 9:44 AM EDT MyCode Nonconsent Documentation Marvin Benito was approached in the clinic regarding participation in the [employer] and did not consent. documented in this encounter Plan of Treatment Upcoming Encounters Date Type Department Care Team (Latest Contact Info) Description 01/19/2024 11:20 AM EDT Office Visit General Internal Medicine [facility] [place] [address] [place] [address] Ta Last MD [address] [place] [address] [address] 02/05/2024 9:15 AM EDT Hospital Encounter OR [facility], Operating Room [facility] [address] [place] [phone] Rich Knight, DO [address] [place] [phone] 02/05/2024 9:15 AM EDT - 02/05/2024 9:40 AM EDT Surgery OR [facility], Operating Room [facility] [address] [place] [phone] Rich Knight, DO [address] [place] [phone] INJECTION SPINE LUMBAR CERVICAL OR THORACIC 03/05/2024 9:30 AM EDT Office Visit [facility] [address] [place] [address] Alondra Boyle [employer] [address] [place] [address] 03/22/2024 8:40 AM EDT Office Visit Sleep Disorders Ctr [facility] [address] [place] [phone] Vanessa Hardy DO [address] [place] [address] 03/29/2024 11:20 AM EDT Office Visit General Internal Medicine [facility] [address] [place] [address] Ta Last MD 200 [place] [address] Scheduled Procedures Name Priority Associated Diagnoses Date/Ti [...] filedocumented as of this encounter Care Teams Bore Mill Operator Relationship Specialty Start Date End Date Ta Last MD [address] [place] [address] PCP - General Internal Medicine 11/19/18 documented as of this encounter
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
--- OUTSIDE RECORDS SUMMARY | 2024-01-18 12:58 | External Medical Summary | Summary of Care ---
Author Name Unknown Organization [facility] Address [address] [facility] [place] [address] Phone [phone] Care Team Providers Care Slot Manager Name Role Phone Ta Last MD Primary Care Provider + Encounter Details Date Type Department Care Team (Late st Contact Info) Description 11/20/2023 Telephone Sleep Disorders Ctr [facility] [address] [place] [phone] Vanessa Hardy DO [address] [place] [address] Allergies No known active allergiesdocumented as of [...] Description 11/24/2023 7:30 AM EST Imaging Radiology [address] 132 [facility] [place] [address] 11/24/2023 9:15 AM EST Imaging Radiology [address] [place] [address] 12/01/2023 2:30 PM EST Telemedicine Interventional Pain Center, [facility] [address] [place] [address] Rosmery Taylor PA-C 132 [facility] [place] [address] 12/28/2023 8:40 AM EDT Office Visit General Internal Medicine [facility] 200 [facility] [place] [address] Ta Last MD 200 [facility] [place] [address] 01/16/2024 3:45 PM EDT Office Visit Urology, [facility] 132 [facility] [place] [address] Marshall Caraballo MD 27 [facility] [address] [place] [address] 02/20/2024 9:30 AM EDT Office Visit Audiology [facility] 132 [facility] [place] [address] Alondra Boyle Au.D. [facility] [place] [address] 03/22/2024 8:40 AM EDT Office Visit Sleep Disorders Ctr [facility] 132 [facility] [place] [phone] Vanessa Hardy DO 132 [facility] [place] [address] Scheduled Procedures Name Priority Associated Diagnoses Date/Ti me COLONOSCOPY FLEXIBLE PROXIMA L DIAGNOSTIC Recall History of colon polyps Family history of colon cancer Health Maintenance Due Date Last Done Comments Hepatitis B (1 of 3 - 19+ 3-dose series) 1988 COVID-19 Vaccine (2022- season) 2023 03/25/2021, 2021 Influenza Vaccine (FLU shot) (#1) 2023 Depression Screening 09/01/2023 09/01/2022 GFR 11/16/2024 11/16/2023, 07/2 09/2022, 03/03/2023, Additional history exists DTaP,Tdap,and Td Vaccines [...] apnea)- Primary Obstructive sleep apnea (adult) (pediatric) documented in this encounter Care Teams Slot Manager Relationship Specialty Start Date End Date Ta Last MD 200 [place] [address] PCP - General Internal Medicine 11/19/18 documented as of this encounter
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
--- OUTSIDE RECORDS SUMMARY | 2024-01-18 12:58 | External Medical Summary ---
Author Name Unknown Address Unknown Organization [id number]:[facility] [place] [facility] [place] [address] Laboratory Report Ordering Provider Test Date Status QUINTON RENE 12/25/2023 09:37:11 Final Observation Date Value Abnormality Reference (Units ) Status Color of Urine by Auto 12/25/2023 09:37:11 Colorless Colorless, Light Yellow, Yellow, Dark Yellow Final Clarity, Urine 12/25/2023 09:37:11 Clear Clear Final Glucose [Mass/volume] in Urine by Automated test strip 12/25/2023 09:37:11 Negative Negative (mg/dL) Final Bilirubin.total [Presence] in Urine by Automated test strip 12/25/2023 09:37:11 Negative Negative Final Ketones [Mass/volume] in Urine by Automated test strip 12/25/2023 09:37:11 Negative Negative (mg/dL) Final Specific gravity, Urine 12/25/2023 09:37:11 1.011 1.003-1.030 Final Hemoglobin [Presence] in Urine by Automated test strip 12/25/2023 09:37:11 Negative Negative Final pH, Urine 12/25/2023 09:37:11 6.5 5.0-7.5 (Units) Final Protein [Mass/volume] in Urine by Automated test strip 12/25/2023 09:37:11 Negative Negative (mg/dL) Final Urobilinogen [Mass/volume] in Urine by Automated test strip 12/25/2023 09:37:11 Normal Normal (mg/dL) Final Nitrite [Presence] in Urine by Automated test strip 12/25/2023 09:37:11 Negative Negative Final Leukocyte esterase [Presence] in Urine by Automated test strip 12/25/2023 09:37:11 Negative Negative Final RBC, Urine 12/25/2023 09:37:11 0-2 0-2 (/HPF) Final WBC, Urine 12/25/2023 09:37:11 0-2 0-2 (/HPF) Final Bacteria [#/area] in Urine sediment by Microscopy high power field 12/25/2023 09:37:11 0-25 0-25 (/HPF) Final Performing Location [facility] [place] [facility] [address] [facility] [address]
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
--- OUTSIDE RECORDS SUMMARY | 2024-01-18 12:58 | External Medical Summary ---
Author Name Unknown Address Unknown Organization K01:[facility] [place] [address] [facility] [address] [place] [address] Laboratory Report Ordering Provider Test Date Status QUINTON RENE 12/25/2023 09:35:11 Final Observation Date Value Abnormality Reference (Units ) Status Triglyceride 12/25/2023 09:35:11 404 Above high normal <=174 (mg/dL) Final Triglyceride Reference Range s (mg/dL):
<150 Acceptable
150-174 Borderline high
175-499 High
>=500 Very high Cholesterol 12/25/2023 09:35:11 238 Above high normal <200 (mg/dL) Final Total Cholesterol Reference Ranges (mg/dL):
<200 Desirable
200-239 Borderline high
>=240 High HDL 12/25/2023 09:35:11 35 Below low normal >39 (mg/dL) Final HDL Cholesterol Reference Ra nges (mg/dL):
>=60 High (Desirable)
<50 Low (Undesirable) For Females
<40 Low (Undesirable) For Males NON-HDL CHOLESTEROL 12/25/2023 09:35:11 203 Above high normal <=159 (mg/dL) Final Non-HDL Cholesterol Referenc e Range (mg/dL):
<100 Target level for high risk ASCVD patient
<130 Optimal for general population
130-159 Near optimal for general population
160-189 Borderline High
190-219 High
>=220 Very High Performing Location [facility] [place] [address] [place] [address]
--- OUTSIDE RECORDS SUMMARY | 2024-01-18 12:58 | External Medical Summary | Summary of Care ---
Author Name Unknown Organization [facility] Address [address] [facility] [place] [address] Phone [phone] Care Team Providers Care Surgical Asst Name Role Phone Ta Last MD Primary Care Provider + Reason for Visit * Reason Comments Outpatient Testing Encounter Details Date Type Department Care Team (Late st Contact Info) Description 11/16/2023 11:50 AM EST Laboratory Laboratory, [facility] [address] [facility] [place] [phone] [facility] 132 [facility] [place] [address] Elevated triglycerides with high cholesterol; Dizziness; Chronic nonintractable headache, unspecified headache type Allergies No known active allergiesdocumented as of [...] Description 11/24/2023 7:30 AM EST Imaging Radiology [facility] [address] [facility] 132 [facility] [place] [address] 11/24/2023 9:15 AM EST Imaging Radiology [address] 132 [place] [address] 12/01/2023 2:30 PM EST Telemedicine Interventional Pain Center, [facility] 132 [facility] [place] [address] Rosmery Taylor PA-C [address] [facility] [place] [address] 12/28/2023 8:40 AM EDT Office Visit General Internal Medicine [facility] 200 [facility] [place] [address] Ta Last MD 200 [facility] [place] [address] 01/16/2024 3:45 PM EDT Office Visit Urology, [facility] [address] [facility] [place] [address] Marshall Caraballo MD [address] [place] [address] [place] [address] 02/20/2024 9:30 AM EDT Office Visit Audiology [facility] [address] [facility] [address] Alondra Boyle Au.D. [address] [facility] [place] [address] 03/22/2024 8:40 AM EDT Office Visit Sleep Disorders [facility] 132 [facility] [place] [phone] Vanessa Hardy DO [address] [place] [address] Pending Results Name Type Priority Associated Diagnoses Date /Time LIPID PANEL WITH DIRECT LDL IF TG IS HIGH Lab Routine Elevated triglycerides with high cholesterol 11/16/2023 11:12 AM EST BUN Lab Routine Dizziness Chronic nonintractable headache, unspecified headache type 11/16/2023 11:12 AM EST CREATININE Lab Routine Dizziness Chronic nonintractable headache, unspecified headache type 11/16/2023 11:12 AM EST Scheduled Procedures Name Priority Associated Diagnoses Date/Ti [...] Elevated triglycerides with high cholesterol Mixed hyperlipidemia Dizziness Dizziness and giddiness Chronic nonintractable headache, unspecified headache type documented in this encounter Care Teams Surgical Asst Relationship Specialty Start Date End Date Ta Last MD [address] [place] [address] PCP - General Internal Medicine 11/19/18 documented as of this encounter
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
--- OUTSIDE RECORDS SUMMARY | 2024-01-18 12:59 | External Medical Summary ---
Author Name Unknown Address Unknown Organization K0[facility] [address] [place] [address] Laboratory Report Ordering Provider Test Date Status QUINTON RENE 11/16/2023 11:12:32 Final Observation Date Value Abnormality Reference (Units ) Status BUN 11/16/2023 11:12:32 14 6-20 (mg/d L) Final Performing Location [facility] [address] [place] [address]
--- OUTSIDE RECORDS SUMMARY | 2024-01-18 12:59 | External Medical Summary ---
Author Name Unknown Address Unknown Organization [id number][facility] [address] [place] [address] Laboratory Report Ordering Provider Test Date Status QUINTON RENE 11/16/2023 11:12:32 Final Observation Date Value Abnormality Reference (Units ) Status Creatinine 11/16/2023 11:12:32 1.1 0.6-1.2 (mg/dL) Final Glomerular filtration rate/1.73 sq M.predicted [Volume Rate/Area] in Serum, Plasma or Blood by Creatinine-based formula (CKD-EPI) 11/16/2023 11:12:32 78 >=60 (mL/min) Final eGFR is calculated based on the CKD-EPI 2020 equation [facility]forming Location [facility] [address] [place] [address]
--- OUTSIDE RECORDS SUMMARY | 2024-01-18 12:59 | External Medical Summary | Summary of Care ---
Author Name Unknown Organization [facility] Address [address] [facility] [place] [address] Phone [phone] Care Team Providers Care Dry Goods Inspector Name Role Phone Ta Last MD Primary Care Provider + Reason for Visit * Evaluate & Treat - Unlimited Visits (Within 30 days (routine)) - Pending Review Specialty Diagnoses / Procedures Referred By Pawan moon Referred To Contact Audiology Diagnoses Bilateral hearing loss, unspecified hearing loss type Ta Last MD 200 [facility] [place] [address] Referral ID Status Reason Start Date Expiration Date Visits Requested Visits Authorized [id number] Pending Review Ancillary Services Required 3 [phone] Encounter Details Date Type Department Care Team (Latest Contact Info) Description 10/24/2023 7:30 AM EST Office Visit Audiology [facility] [place] [address] Alondra Boyle Au.D. [address] [place] [address] Bilateral sensorineural hearing loss* Allergies No known active allergiesdocumented as of [...] as of this encounter Progress Notes * Alondra Boyle Au.D. - 10/24/2023 7:35 AM EST Images from the original note were not included. Marvin Benito, 53 year old was accompanied by his and was seen for an audiologic evaluation with a primary complaint of decreased hearing sensitivity. Feels right ear is poorer ear. Needing to repeat things more often. 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 TM visualized and intact Left: ear canal is free of occluding cerumen for congressional aide testing. TM visualized and intact Tympanometry 38583 See scanned results Right: WNL for static admittance, tympanometric peak pressure, equivalent volume, and tympanic width("Type A") Left: WNL for static admittance, tympanometric peak pressure, equivalent volume, and tympanic width("Type A") Standard Audiometric Testing 33548 ABSD, insert earphones earphones, Good reliability Right: Mild mixed hearing loss Left: Mild to moderately severe rising to normal sensorineural hearing loss Speech recognition thresholds were consistent with hearing thresholds. Word recognition scores, obtained via monitored live voice were: right 100%, left 100% Impression: Bilateral symmetric sensorineural hearing loss Recommendations: Audiology services as needed., Audiologic monitoring of this identified hearing loss, Use of communication strategies and assistive technology in challenging listening situations, and Use of hearing protection when exposed to excessive sound levels Power Mclain, [facility] Scan: audiogram, tympanograms cc: Ta Last MD documented in this encounter Plan of Treatment Upcoming Encounters Date Type Department Care Team (Late st Contact Info) Description 10/24/2023 10:00 AM EST Office Visit Otolaryngology [facility] 132 [facility] [place] [address] Cheryl Oliveira MD [address] [place] [address] Hearing loss, mixed, bilateral* 11/02/2023 12:45 PM EST Office Visit Interventional Pain Center, [facility] 132 [facility] [place] [address] Rich Knight, DO [facility] [place] [phone] 11/28/2023 9:20 AM EST Office Visit Sleep Disorders Ctr [facility] 132 [facility] [place] [phone] Vanessa Hardy, DO 132 [facility] [place] [address] 12/28/2023 8:40 AM EDT Office Visit General Internal Medicine [facility] 200 [facility] [place] [address] Ta Last MD 200 [facility] [address] 01/16/2024 3:45 PM EDT Office Visit Urology, [facility] 132 [facility] [place] [address] Marshall Caraballo MD 27 [facility] 270 [place] [address] 02/20/2024 9:30 AM EDT Office Visit Audiology [facility] 132 [facility] [place] [address] Alondra Boyle Au.D. 132 [facility] [place] [address] Scheduled Procedures Name Priority Associated Diagnoses Date/Ti me COLONOSCOPY FLEXIBLE PROXIMA L DIAGNOSTIC Recall History of colon polyps Family history of colon cancer Health Maintenance Due Date Last Done Comments Hepatitis B (1 of 3 - 3-dose series) 1970 COVID-19 Vaccine (3 - season) 2023 03/25/2021, 2021 Influenza Vaccine [...] Procedure Name Priority Date/Time Associated Diagnosis Comments AUDIOMETRIC RESULT 10/24/2023 documented in this encounter Results * AUDIOMETRIC RESULT (10/24/2023) 10/24/2023 Alondra Steve [facility] documented in this encounter Visit Diagnoses Diagnosis Bilateral sensorineural hearing loss- Primary Sensorineural hearing loss, bilateral Hearing loss, mixed, bilateral- Primary Mixed hearing loss, bilateral documented in this encounter Care Teams Dry Goods Inspector Relationship Specialty Start Date End Date Ta Last MD [address] [place] [address] PCP - General Internal Medicine 11/19/18 documented as of this encounter
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
--- OUTSIDE RECORDS SUMMARY | 2024-01-18 12:59 | External Medical Summary ---
Author Name Unknown Address Unknown Organization [id number]:[facility] - [address] [facility] [address] [place] [address] Laboratory Report Ordering Provider Test Date Status QUINTON RENE 11/16/2023 11:12:32 Final Observation Date Value Abnormality Reference (Units ) Status Triglyceride 11/16/2023 11:12:32 618 Above high normal <=174 (mg/dL) Final Triglyceride Reference Range s (mg/dL):
<150 Acceptable
150-174 Borderline high
175-499 High
>=500 Very high Cholesterol 11/16/2023 11:12:32 254 Above high normal <200 (mg/dL) Final Total Cholesterol Reference Ranges (mg/dL):
<200 Desirable
200-239 Borderline high
>=240 High HDL 11/16/2023 11:12:32 35 Below low normal >39 (mg/dL) Final HDL Cholesterol Reference Ra nges (mg/dL):
>=60 High (Desirable)
<50 Low (Undesirable) For Females
<40 Low (Undesirable) For Males NON-HDL CHOLESTEROL 11/16/2023 11:12:32 219 Above high normal <=159 (mg/dL) Final Non-HDL Cholesterol Referenc e Range (mg/dL):
<100 Target level for high risk ASCVD patient
<130 Optimal for general population
130-159 Near optimal for general population
160-189 Borderline High
190-219 High
>=220 Very High Performing Location [facility] - [address] [place] [address]
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
--- OUTSIDE RECORDS SUMMARY | 2024-01-18 12:59 | External Medical Summary | Summary of Care ---
Author Name Unknown Organization [facility] Address [address] [facility] [place] [address] Phone [phone] Care Team Providers Care Cartoon Designer Name Role Phone Ta Last MD Primary Care Provider + Reason for Visit * Reason Onset Date Comments Advice 11/15/2023 Encounter Details Date Type Department Care Team (Late st Contact Info) Description 11/15/2023 [facility] [address] [place] [address] Vanessa Hardy DO [address] [place] [address] Advice Allergies No known active allergiesdocumented as [...] order for machine. Pt last seen Aug. ([facility]) Please call pt [phone] documented in this encounter Plan of Treatment Upcoming Encounters Date Type Department Care Team (Late st Contact Info) Description 11/24/2023 7:30 AM EST Imaging Radiology [address], [place] 132 [place] [address] 11/24/2023 9:15 AM EST Imaging [facility] [place] [address] 12/01/2023 2:30 PM EST Telemedicine Interventional Pain Center, [facility] 132 [facility] [place] [address] Rosmery Taylor PA-C 132 [facility] [place] [address] 12/28/2023 8:40 AM EDT Office Visit General Internal Medicine [facility] 200 [facility] [place] [address] Ta Last MD 200 [facility] [place] [address] 01/16/2024 3:45 PM EDT Office Visit Urology, [facility] 132 [facility] [place] [address] Marshall Caraballo MD [address] [address] [place] [address] 02/20/2024 9:30 AM EDT Office Visit Audiology [facility] 132 [facility] [place] [address] Alondra Boyle Au.D. 132 [facility] [place] [address] 03/22/2024 8:40 AM EDT Office Visit Sleep Disorders Ctr [facility] 132 [facility] [place] [phone] Vanessa Hardy DO 132 [facility] [place] [address] Scheduled Procedures Name Priority Associated Diagnoses Date/Ti [...] filedocumented as of this encounter Care Teams Cartoon Designer Relationship Specialty Start Date End Date Ta Last MD [address] [place] [address] PCP - General Internal Medicine 11/19/18 documented as of this encounter
--- OUTSIDE RECORDS SUMMARY | 2024-01-18 12:59 | External Medical Summary | Summary of Care ---
Author Name Unknown Organization [facility] Address [address] [facility] [address] Phone [phone] Care Team Providers Care Environmental Solutions Engineer Name Role Phone Ta Alcantara MD Primary Care Provider + Reason for Visit * Reason Comments eRx-Medication Refill Encounter Details Date Type Department Care Team (Late st Contact Info) Description 10/24/2023 Refill General Internal Medicine [facility] 200 [facility] [place] [address] Ta Alcantara MD 200 [facility] [place] [phone] Allergies No known active allergiesdocumented as of this encounter (statuses as of 10/25/2023) Medications Medication Sig Dispensed Refills Start Date End Date Status IBUPROFEN 200 MG PO CAPS 1-4 tablets once or twice daily as needed. 0 Active RED YEAST RICE 600 MG PO CAPS 1 tablet 0 Active FLAX SEED OIL 1000 MG PO CAPS 1 tablet daily 0 Activ e B-12 1000 MCG Oral Tablet Take by mouth 1 Tablet daily . 0 02/14/2022 Active Diclofenac Sodium 1 % External Gel (Voltaren) APPLY 2G TOPICALLY TO AFFECTED AREA TWICE DAILY 0 07/21/2022 Active amLODIPine Besylate 5 MG Oral Tablet (Norvasc)Indicati ons:HTN, goal below 130/80 Take 1 Tablet by mouth in the morning. 90 Tablet 3 01/02/2023 Active Acetaminophen 325 MG Oral Tablet Take 1 Tablet by mouth every 6 hours as needed. As needed for pain 0 Active Vitamin D3 25 MCG (1000 UT) Oral Tablet (Vitamin D3) Take 1 Tablet by mouth in the morning. 0 03/27/2023 Active Gabapentin 100 MG Oral Capsule (Neurontin)Indica tions:Neuropathy 2 pills in the morning, 2 pills in the afternoon and then 3 pills in the evening 630 Capsule 3 08/22/2023 Active Allopurinol 100 MG Oral Tablet (Zyloprim) Take 1 tablet by mouth twice daily 60 Tablet 2 09/24/2023 Active Citalopram Hydrobromide 40 MG Oral Tablet (CeleXA)Indicatio ns:Moderate major depression, single episode (HCC),Mixed emotional features as adjustment reaction Take 1 Tablet by mouth in the morning. 90 Tablet 1 10/11/2023 Active Meloxicam 7.5 MG Oral Tablet (Mobic) Take 1 Tablet by mouth in the morning. 30 Tablet 2 10/17/2023 Active LORazepam 1 MG Oral Tablet (Ativan)Indicatio ns:BEBO (generalized anxiety disorder) Take 0.5 Tablets by mouth every 8 hours as needed for Anxiety. 15 Tablet 0 10/18/2023 Active Lisinopril-hydroC HLOROthiazide 20-12.5 MG Oral Tablet Take 2 tablets by mouth once daily 180 Tablet 1 10/25/2023 Active Lisinopril-hydroC HLOROthiazide 20-12.5 MG Oral Tablet Take 2 Tablets by mouth in the morning. 180 Tablet 1 03/03/2023 4 Discontinued documented as of this encounter (statuses [...] Notes * Telephone Encounter - Maria L Fung [facility] - 10/25/2023 4:11 PM ESTSigned Prescriptions: Disp Refills Lisinopril-hydroCHLOROthiazide 20-12.5 MG *180 Ta*1 Sig: Take 2 tablets by mouth once dailyAuthorizing Provider: TA ALCANTARA User: MARIA L FUNG documented in this encounter Plan of Treatment Upcoming Encounters Date Type Department Care Team (Late st Contact Info) Description 11/02/2023 12:45 PM EST Office Visit Interventional Pain Center, [facility] [address] [place] [address] Rich Knight, DO [address] [place] [phone] 11/28/2023 9:20 AM EST Office Visit Sleep Disorders Ctr [facility] [address] [place] [phone] Vanessa Hardy DO 132 [facility] [place] [address] 12/28/2023 8:40 AM EDT Office Visit General Internal Medicine [facility] 200 [facility] [place] [address] Ta Alcantara MD 200 [facility] [place] [address] 01/16/2024 3:45 PM EDT Office Visit Urology, [facility] 132 [facility] [place] [address] Marshall Caraballo MD 27 [facility] Med 270 [place] [address] 02/20/2024 9:30 AM EDT Office Visit Audiology [facility] [address] [place] [address] Alondra Boyle Au.D. [address] [place] [address] Scheduled Procedures Name Priority Associated Diagnoses Date/Ti me COLONOSCOPY FLEXIBLE PROXIMA L DIAGNOSTIC Recall History of colon polyps Family history of colon cancer Health Maintenance Due Date Last Done Comments Hepatitis B (1 of 3 - 3-dose series) 1970 COVID-19 Vaccine (3 - 2022- season) 2023 03/25/2021, 2021 Influenza Vaccine (FLU shot) (#1) 2023 Depression Screening 09/01/2023 09/01/2022 GFR 04/14/2024 04/14/2023, 06/05/2023, 02/07/2023, Additional history exists DTaP,Tdap,and Td Vaccines [...] filedocumented as of this encounter Care Teams Environmental Solutions Engineer Relationship Specialty Start Date End Date Ta Alcantara MD [address] [place], [place] [address] PCP - General Internal Medicine 11/19/18 documented as of this encounter
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
--- OUTSIDE RECORDS SUMMARY | 2024-01-18 13:00 | External Medical Summary | Summary of Care ---
Author Name Unknown Organization [facility] Address [address] [facility] [place] [address] Phone [phone] Care Team Providers Care Tawer Name Role Phone Ta Last MD Primary Care Provider + Reason for Visit * Reason Comments Review Sleep Study Encounter Details Date Type Department Care Team (Latest Contact Info) Description 08/23/2023 11:30 AM EST PulmDiagnostic Sleep Lab [facility] [address] [facility] [place] [address] [facility] [address] [facility] [place] [address] TRUNG (obstructive sleep apnea)*; Nocturnal hypoxemia Allergies [...] as of this encounter Progress Notes * Vanessa Hardy DO - 09/22/2023 10:05 AM EST Encounter for billing WatchPAT WatchPAT home sleep apnea test report will be uploaded, viewable through Media attached to this encounter and/or via scans. documented in this encounter Plan of Treatment Upcoming Encounters Date Type Department Care Team (Latest Contact Info) Description 09/22/2023 11:30 AM EST Imaging Radiology [facility] 132 [facility] [place] [address] 09/22/2023 1:40 PM EST Office Visit Sleep Disorders Ctr [facility] [address] [facility] [place] [phone] Vanessa Hardy DO 132 [facility] [place] [address] 10/09/2023 7:45 AM EST Hospital Encounter OR [facility], Operating Room [facility] [address] [place] [phone] Carmelo Cruz MD [address] [place] [address] 10/09/2023 7:45 AM EST - 10/09/2023 9:41 AM EST Surgery OR [facility], Operating Room [facility] [address] [place] [phone] Carmelo Cruz MD [address] [place] [address] LEFT ARTHROPLASTY INTERPOSITION CARPAL JOINTS 10/16/2023 8:30 AM EST Office Visit Orthopaedics [facility] [address] [place] [address] Carmelo Cruz MD [address] [place] [address] 10/24/2023 7:30 AM EST Office Visit Audiology [facility] [address] [place] [address] Alondra Boyle Au.D. [address] [place] [address] 12/28/2023 8:40 AM EDT Office Visit General Internal Medicine [facility] [address] [place] [address] Ta Last MD 200 [facility] [place] [address] Scheduled Orders Name Type Priority Associated Diagnoses Orde r Schedule HOME SLEEP TEST W/TYPE 4 MONITOR, 3 CHANNEL Procedures Routine TRUNG (obstructive sleep apnea) Ordered: 07/04/2023 Scheduled Procedures Name Priority Associated Diagnoses Date/Ti [...] hand documented in this encounter Care Teams Tawer Relationship Specialty Start Date End Date Ta Last MD 200 [facility] [place] [address] PCP - General Internal Medicine 11/19/18 documented as of this encounter
--- OUTSIDE RECORDS SUMMARY | 2024-01-18 13:00 | External Medical Summary | Summary of Care ---
Author Name Unknown Organization [facility] Address [address] [facility] [place] [address] Phone [phone] Care Team Providers Care Swine Genetics Researcher Name Role Phone Ta Last MD Primary Care Provider + Reason for Referral * Evaluate & Treat - Unlimited Visits (Within 10 days (routine)) - Pending Review Specialty Diagnoses / Procedures Referred By Pawan moon Referred To Contact Urology Diagnoses Right testicular pain Microscopic hematuria Hydrocele in adult Varicocele Ta Last MD [address] [place] [address] Referral ID Status Reason Start Date Expiration Date Visits Requested Visits Authorized [id number] Pending Review Specialty Services Required 09/27/2023 999 [id number] Question Answer Referral Priority Within 10 days (routine) Where should this appointment be scheduled? [facility] What is the patient being referred for? Pelvic/Testicular pain * (Within 24 hrs (call dept; emergent)) - Pending Review Specialty Diagnoses / Procedures Referred By Pawan moon Referred To Contact Radiology Diagnoses Right testicular pain Procedures US SCROTUM/TESTES Ta Last MD [address] [place] [address] Referral ID Status Reason Start Date Expiration Date V isits Requested Visits Authorized [id number] Pending Review 09/14/[phone] Reason for Visit * Reason Comments Acute Patient presents wit h concerns for pain in his groin, on going for 3 weeks. Patient states feels like someone hit him and pain is only on the right side. Patient denied any lumps. Encounter Details Date Type Department Care Team (Late st Contact Info) Description 09/14/2023 3:00 PM EST Office Visit General Internal Medicine [facility] [address] [place] [address] Ta Last MD 200 [facility] [place] [address] Right testicular pain*; Microscopic hematuria; Hydrocele in adult; Varicocele Allergies No known active allergiesdocumented as of [...] needed. As needed for pain 0 Active Lisinopril-hydroC HLOROthiazide 20-12.5 MG Oral Tablet [...] 08/22/2023 Active Gabapentin 100 MG Oral Capsule (Neurontin)Indica tions:Neuropathy 2 pills in the morning, 2 pills in the afternoon and then 3 pills in the evening 630 Capsule 3 08/22/2023 Active Multi Vitamin Daily Oral Tablet Take by mouth. 0 09/14/20 2 3 Discontinued Dicloxacillin Sodium 500 MG Oral Capsule 0 03/30/2023 3 Discontinued Allopurinol 100 MG Oral Tablet (Zyloprim) Take 1 Tablet by mouth in the morning and 1 Tablet before bedtime. 60 Tablet 3 06/07/2023 3 Discontinued Diphenoxylate-Atr opine 2.5-0.025 MG Oral Tablet (Lomotil) Take 1 Tablet by mouth 4 times a day as needed for Diarrhea. 120 Tablet 0 08/31/2023 3 Discontinued documented as of this encounter (statuses [...] Sign Reading Time Taken Comments Blood Pressure 136/88 09/14/2023 2:54 PM EST Pulse 87 09/14/2023 2:54 PM EST Temperature 35.9 C (96.7 F) 09/14/2023 2:54 PM ES T Respiratory Rate - - Oxygen Saturation 95% 09/14/2023 2:54 PM EST Inhaled Oxygen Concentration - - Weight 117 kg (258 lb) 09/14/2023 2:54 PM EST Height 181.6 cm (5' 11.5") 09/14/2023 2:54 PM ES T Body Mass Index 35.48 09/14/2023 2:54 PM EST documented in this encounter Progress Notes * Ta Last MD - 09/14/2023 3:18 PM EST Chief Complaint Patient presents with Acute Patient presents with concerns for pain in his groin, on going for 3 weeks. Patient states feels like someone hit him and pain is only on the right side. Patient denied any lumps. SUBJECTIVE: Marvin Benito is a 53 year old male with PMH as below who presents for testicular discomfort, right side. Feels like started 3 weeks ago, like someone tapped him in testicle, who testicle was painful. Right side testicular slightly swollen, but always bigger. No fevers, chills, dysuria, concern for sti. Pain seems to ebb/flow past 3 weeks, no known triggers. No fevers Patient Active Problem List Diagnosis Code Mixed hyperlipidemia E78.2 IBS (irritable bowel syndrome) K58.9 Moderate major depression, single episode (HCC) F32.1 Difficulty with CPAP use Z78.9 TRUNG (obstructive sleep apnea) G47.33 Neuropathy G62.9 Vitamin B12 deficiency E53.8 HTN, goal below 130/80 I10 BEBO (generalized anxiety disorder) F41.1 Current Outpatient Medications Medication Sig Dispense Refill [...] mouth in the morning. 90 Tablet 3 Lisinopril-hydroCHLOROthiazide 20-12.5 MG Oral Tablet Take 2 [...] pills in the evening 630 Capsule 3 Acetaminophen 325 MG Oral Tablet Take 1 Tablet by mouth every 6 hours as needed. As needed for pain No current facility-administered medications for this visit. Review of patient's allergies indicates: No Known Allergies Health Maintenance Due Topic Date Due Hepatitis B (1 of 3 - 3-dose series) Never done Influenza Vaccine (FLU shot) (1) Never done COVID-19 Vaccine (2022- season) 2023 Depression Screening 09/01/2023 *NEPHROLOGY REFERRAL DUE TO RESISTANT HTN Never done ROS: CONSTITUTIONAL: No change in weight, No weakness, and No fevers, sweats, or chills EYE: No recent significant change in vision and No eye pain, redness, discharge MALE: No STD, No dysuria, No frequency, No incontinence, No urgency, and Performs self testicular exam ALL OTHER SYSTEMS NEGATIVE I reviewed social, PMH, PSH, and family history and updated where needed. Social History Socioeconomic History Marital status: Spouse name: Not on file Number of children: 1 Years of education: Not on file Highest education level: Not on file Occupational History Occupation: [employer] Employer: [employer] Tobacco Use Smoking status: Former Packs/day: 1.00 Years: 12.00 Additional pack years: 0.00 Total pack years: 12.00 Types: Cigarettes Quit date: 09/25/1999 Years since quittin.9 Smokeless tobacco: Former Quit date: 11/20/2014 Vaping [...] performed by Javon Noriega MD at [facility]COPY [facility] COLONOSCOPY, DIAGNOSTIC (RECTUM) 06/27/2022 benign adenomatous polyp, repeat 5 yrs / COLONOSCOPY FLEXIBLE PROXIMAL DIAGNOSTIC performed by Evgeny Barreto MD at ENDOSCOPY [facility] DENTAL SURGERY PROCEDURE NEC ELBOW TENOTOMY REPAIR, PERC Left 11/2019 [facility] HAND/FINGER SURGERY NEC Right 2014 [place] - 4/5 digit fx repair, ulnar nerve/band repair Family History Problem Relation Age of Onset Diabetes Mother Hypertension Mother Pulmonary embolism Mother 80 Diabetes Father Cancer Father colon Hypertension Father OBJECTIVE: PHYSICAL EXAM: BP 136/88 | Pulse 87 | Temp 35.9 C (96.7 F) | Ht 1.816 m (5' 11.5") | Wt 117 kg (258 lb) | [id number]% | BMI 35.48 kg/m | BSA 2.43 m General: alert, healthy, and no distress Head: Normocephalic, No masses, lesions, or abnormalities Exam (Male): normal uncircumcised penis, no urethral discharge, no hernia detected, no pain to palpation testicle, but right enlarged with respect to left side testicle, no open wounds ASSESSMENT: N50.811 Right testicular pain (primary encounter diagnosis) PLAN: Right testicular pain (Primary) - URINALYSIS WITH MICROSCOPIC EXAM; Future; Expected date: 09/14/2023 - US SCROTUM/TESTES; Future; Expected date: 09/14/2023 Check u/s, further recs pending, will also check u/a for pain ongoing for 3 weeks Follow-up: Return if symptoms worsen or fail to improve and as scheduled.. | Check-out note: [facility] schedule u/s shannon today or tomorrow Ta Last MD documented in this encounter Nursing Notes * Jed Vazquez CMA - 09/14/2023 2:52 PM EST Chief Complaint Patient presents with Acute Patient presents with concerns for pain in his groin, on going for 3 weeks. Patient states feels like someone hit him and pain is only on the right side. Patient denied any lumps. documented in this encounter Miscellaneous Notes * Addendum Note - Ta Last MD - 09/27/2023 8:48 AM ESTAddended by: TA LAST on: 09/27/2023 08:48 AM Modules accepted: Orders * Addendum Note - Ta Last MD - 09/15/2023 8:10 AM ESTAddended by: TA LAST on: 09/15/2023 08:10 AM Modules accepted: Orders documented in this encounter Plan of Treatment Upcoming Encounters Date Type Department Care Team (Latest Contact Info) Description 10/09/2023 9:30 AM EST Hospital Encounter OR [facility], Operating Room [facility] [address] [place] [phone] Carmelo Cruz MD [address] [place] [address] 10/09/2023 9:30 AM EST - 10/09/2023 11:41 AM EST Surgery OR [facility], Operating Room [facility] [address] [place] [phone] Carmelo Cruz MD [address] [place] [address] LEFT ARTHROPLASTY INTERPOSITION CARPAL JOINTS 10/16/2023 8:30 AM EST Office Visit Orthopaedics [facility] [address] [place] [address] Carmelo Cruz MD [address] [place] [address] 10/24/2023 7:30 AM EST Office Visit Audiology [facility] [address] [place] [address] Alondra Boyle Au.D. [address] [place] [address] 11/28/2023 9:20 AM EST Office Visit Sleep Disorders Ctr [facility] [place] [address] [place] [phone] Vanessa Hardy DO [address] [place] [address] 12/28/2023 8:40 AM EDT Office Visit General Internal Medicine [facility] 200 [place] [address] Ta Last MD 200 [facility] [place] [address] Scheduled Orders Name Type Priority Associated Diagnoses Orde r Schedule URINALYSIS WITH MICROSCOPIC EXAM Lab Routine Microscopic hematuria Expected: 09/15/2023 (Approximate), Expires: 09/14/2024 Scheduled Procedures Name Priority Associated Diagnoses Date/Ti me ARTHROPLASTY INTERPOSITION CARPAL JOINTS Primary osteoarthritis of first carpometacarpal joint of left hand 10/09/2023 9:30 AM EST TENDON TRANSFER OR TRANSPLANT FOREARM Primary osteoarthritis of first carpometacarpal joint of left hand 10/09/2023 9:30 AM EST COLONOSCOPY FLEXIBLE PROXIMAL DIAGNOSTIC Recall History of colon polyps Family history of colon cancer Scheduled Referrals Name Type Priority Associated Diagnoses Orde r Schedule UROLOGY REFERRAL OP Referral Within 10 da ys (routine) Right testicular pain Microscopic hematuria Hydrocele in adult Varicocele Ordered: 09/27/2023 Health Maintenance Due Date Last Done Comments Hepatitis B (1 of 3 - 3-dose series) 1970 COVID-19 Vaccine (2022- season) 2023 03/25/2021, 2021 [...] filedocumented as of this encounter Results * US SCROTUM/TESTES (09/22/2023 11:43 AM EST) Anatomical Region Laterality Modality Pelvis, Body Ultrasound 09/26/2023 9:03 AM EST Narrative 09/26/2023 9:01 AM EST EXAM: ULTRASOUND SCROTUM HISTORY: right testicular pain COMPARISON: None. FINDINGS: RIGHT TESTICLE: 5 x 3.9 x 2.7cm. Arterial and venous flow is present. Homogeneous echotexture without solid or cystic mass. RIGHT EPIDIDYMIS: 4 mm cyst or spermatocele is present. LEFT TESTICLE: 4.1 x 3.1 x 2.4cm. Arterial and venous flow is present. Homogeneous echotexture without solid or cystic mass. LEFT EPIDIDYMIS: Unremarkable with normal vascularity. HYDROCELE: Mild right hydrocele. VARICOCELE: Mild left varicocele. IMPRESSION: 1. No evidence of testicular torsion. 2. Small 4 mm cyst or spermatocele in the head of the right epididymis. 3. Mild right hydrocele. 4. Mild left varicocele. 5. Details as above. Procedure Note Indra Khan MD - 09/26/2023 EXAM: ULTRASOUND SCROTUM HISTORY: right testicular pain COMPARISON: None. FINDINGS: RIGHT TESTICLE: 5 x 3.9 x 2.7cm. Arterial and venous flow is present. Homogeneous echotexture without solid or cystic mass. RIGHT EPIDIDYMIS: 4 mm cyst or spermatocele is present. LEFT TESTICLE: 4.1 x 3.1 x 2.4cm. Arterial and venous flow is present. Homogeneous echotexture without solid or cystic mass. LEFT EPIDIDYMIS: Unremarkable with normal vascularity. HYDROCELE: Mild right hydrocele. VARICOCELE: Mild left varicocele. IMPRESSION: 1. No evidence of testicular torsion. 2. Small 4 mm cyst or spermatocele in the head of the right epididymis. 3. Mild right hydrocele. 4. Mild left varicocele. 5. Details as above. Ta Last MD RAD ULTRASOUND * (ABNORMAL) URINALYSIS WITH MICROSCOPIC EXAM (09/14/2023 3:23 PM EST) Color, Urine Yellow Light Yellow, Yellow, Dark Yellow 09/14/2023 3:34 PM EST [facility] 56- Clarity, Urine Clear Clear 09/14/2023 3:34 PM EST [facility] 56- Glucose, Urine Negative Negative mg/dL 09/14/2023 3:34 PM EST [facility] 56- Bilirubin, Urine Negative Negative 09/14/2023 3:34 PM EST [facility] 56- Ketone, Urine Negative Negative mg/dL 09/14/2023 3:34 PM EST [facility] 56- Specific [place], Urine 1.025 1.003 - 1.030 09/14/2023 3:34 PM EST [facility] 56- Blood, Urine Trace(A) Negative 09/14/2023 3:34 PM EST [facility] 56- pH, Urine 5.5 5.0 - 7.5 Units 09/14/2023 3:34 PM EST [facility] 56- Protein, Urine Negative Negative mg/dL 09/14/2023 3:34 PM EST [facility] 56- Urobilinogen, Urine 0.2 0.2, 1.0 mg/dL 09/14/2023 3:34 PM EST [facility] 56 Nitrite, Urine Negative Negative 09/14/2023 3:34 PM EST [facility] 56 Esterase, Urine Negative Negative 09/14/2023 3:34 PM EST [facility] 56 RBC, Urine 3-5(A) 0 - 2 /HPF 09/14/2023 3:34 PM EST [facility] 56 WBC, Urine 0-2 0 - 2 /HPF 09/14/2023 3:34 PM EST [facility] Bacteria, Urine 0-25 0 - 25 /HPF 09/14/2023 3:34 PM [facility] 56 Urine Urine specimen obtained by clean catch procedure / Unknown Non-blood Collection / Unknown 09/14/2023 3:23 PM EST 09/14/2023 3:23 PM EST Ta Last MD LAB URINE ORDERA BLES [facility] 56 [address] [place] [address] documented in this encounter Visit Diagnoses Diagnosis Right testicular pain- Primary Unspecified disorder of male genital organs Microscopic hematuria Hydrocele in adult Varicocele Scrotal varices Right testicular pain Unspecified disorder of male genital organs Primary osteoarthritis of first carpometacarpal joint of left hand Primary localized osteoarthrosis, hand documented in this encounter Care Teams Swine Genetics Researcher Relationship Specialty Start Date End Date Ta Last MD 200 [place] [address] PCP - General Internal Medicine 11/19/18 documented as of this encounter
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
--- OUTSIDE RECORDS SUMMARY | 2024-01-18 13:01 | External Medical Summary | Summary of Care ---
Author Name Unknown Organization [facility] Address [address] [facility] [place] [address] Phone [phone] Care Team Providers Care Health Safety Coordinator Name Role Phone Ta Last MD Primary Care Provider + Reason for Visit * Reason Onset Date Comments Other 08/31/2023 Encounter Details Date Type Department Care Team (Late st Contact Info) Description 08/31/2023 Telephone Gastroenterology, [facility] [address] [place] [address] Zachary Grider CRNP [address] [place] [address] Other Allergies No known active allergiesdocumented as of [...] encounter Miscellaneous Notes * Telephone Encounter - Loretta Mullins RN - 08/31/2023 2:54 PM EST Script did not print. Zachary is here in the office. Assisted Zachary to call a verbal to the pharmacist at [facility]. pharmacist verified they had not got the original script and took a verbal order from Zachary and Ofelia. * Telephone Encounter - Loretta Mullins RN - 08/31/2023 2:51 PM EST ----- Message from AMIRAH Kaopor sent at 08/31/2023 2:05 PM EST ----- Regarding: fax prescription to lul The PDMP website/[employer] system didn't work. I printed a Lomotil script. Please fax to the pharmacy - Lul Still documented in this encounter Plan of Treatment Upcoming Encounters Date Type Department Care Team (Latest Contact Info) Description 09/22/2023 1:40 PM EST Office Visit Sleep Disorders Ctr [facility] [address] [place] [phone] Vanessa Hardy DO [address] [place] [address] 10/09/2023 7:45 AM EST Hospital Encounter OR [facility], Operating Room [facility] [address] [phone] Carmelo Cruz MD [address] [place] [address] 10/09/2023 7:45 AM EST - 10/09/2023 9:51 AM EST Surgery OR [facility], Operating Room [facility] [address] [phone] Carmelo Cruz MD [address] [place] [address] LEFT ARTHROPLASTY INTERPOSITION CARPAL JOINTS 10/16/2023 8:30 AM EST Office Visit Orthopaedics [facility] [address] [place] [address] Carmelo Cruz MD [address] [place] [address] 12/28/2023 8:40 AM EDT Office Visit General Internal Medicine [facility] 200 [facility] [place] [address] Ta Last MD 200 [facility] [place], [place] [address] Scheduled Procedures Name Priority Associated Diagnoses Date/Ti [...] filedocumented as of this encounter Care Teams Health Safety Coordinator Relationship Specialty Start Date End Date Ta Last MD 200 [place] [address] PCP - General Internal Medicine 11/19/18 documented as of this encounter
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
--- OUTSIDE RECORDS SUMMARY | 2024-01-18 13:01 | External Medical Summary ---
Author Name Unknown Address Unknown Organization : Laboratory Report Ordering Provider Test Date Status LORENZO POON 09/01/2023 12:02:14 Final Observation Date Value Abnormality Reference (Units ) Status Pancreatic Elastase, Stool 09/01/2023 12:02:14 217 (mcg/g) Final Adult and Pediatric Referenc e Ranges for
Pancreatic Elastase-1:
Normal: >200 mcg/g
Moderate Pancreatic
Insufficiency: 100-200 mcg/g
Severe Pancreatic
Insufficiency: <100 mcg/g
Elastase-1 (E-1) assay results are expressed
in mcg/g, which represent mcg E1/g feces.
It is not necessary to interrupt enzyme
substitution therapy.
Test performed by [facility]
[address],
[place] [address]

Media Sales Representative: Sofi Poole MD,PHD,KENZIE
Test Reported by [facility],
[place],
[address] [place], [place]
Keshav Preciado M.D., Ph.D., Director of Laboratories
, ROBERTIA [id number] Performing Location
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
--- OUTSIDE RECORDS SUMMARY | 2024-01-18 13:01 | External Medical Summary ---
Author Name Unknown Address Unknown Organization K01:[facility]ATORY [facility] - [address] [place] [address] Laboratory Report Ordering Provider Test Date Status LORENZO POON 09/01/2023 12:02:06 Final Observation Date Value Abnormality Reference (Units) Status Bacteria identified in Specimen by Culture 09/01/2023 12:02:06 No Aeromonas species or Plesiomonas species isolated. Final Test: Gastrointestinal Patho gen Panel Culture
Specimen Source: Stool
Specimen Type: Stool
Specimen Date: 09/01/2023 12:02 PM
Result Date: 09/03/2023 10:26 AM
Result Status: Final result
Resulting Lab: [facility]
[address]
[place] [id number]

CULTURE

No Aeromonas species or Plesiomonas species isolated.

null Performing Location LABORATORY [facility] - [address] [facility] [address]
--- OUTSIDE RECORDS SUMMARY | 2024-01-18 13:01 | External Medical Summary ---
Author Name Unknown Address Unknown Organization K09:[facility]ATORY [facility] [address] [place] [address] Laboratory Report Ordering Provider Test Date Status QUINTON RENE 09/14/2023 15:23:44 Final Observation Date Value Abnormality Reference (Units ) Status Color of Urine by Auto 09/14/2023 15:23:44 Yellow Light Yellow, Yellow, Dark Yellow Final Clarity, Urine 09/14/2023 15:23:44 Clear Clear Final Glucose [Mass/volume] in Urine by Automated test strip 09/14/2023 15:23:44 Negative Negative (mg/dL) Final Bilirubin.total [Presence] in Urine by Automated test strip 09/14/2023 15:23:44 Negative Negative Final Ketones [Mass/volume] in Urine by Automated test strip 09/14/2023 15:23:44 Negative Negative (mg/dL) Final Specific gravity, Urine 09/14/2023 15:23:44 1.025 1.003-1.030 Final Hemoglobin [Presence] in Urine by Automated test strip 09/14/2023 15:23:44 Trace Abnormal Negative Final pH, Urine 09/14/2023 15:23:44 5.5 5.0-7.5 (Units) Final Protein [Mass/volume] in Urine by Automated test strip 09/14/2023 15:23:44 Negative Negative (mg/dL) Final Urobilinogen [Mass/volume] in Urine by Automated test strip 09/14/2023 15:23:44 0.2 0.2, 1.0 (mg/dL) Final Nitrite [Presence] in Urine by Automated test strip 09/14/2023 15:23:44 Negative Negative Final Leukocyte esterase [Presence] in Urine by Automated test strip 09/14/2023 15:23:44 Negative Negative Final RBC, Urine 09/14/2023 15:23:44 3-5 Abnormal 0-2 (/HPF) Final WBC, Urine 09/14/2023 15:23:44 0-2 0-2 (/HPF) Final Bacteria [#/area] in Urine sediment by Microscopy high power field 09/14/2023 15:23:44 0-25 0-25 (/HPF) Final Performing Location [facility]ORY [facility] [address] [place] [address]
--- OUTSIDE RECORDS SUMMARY | 2024-01-18 13:01 | External Medical Summary ---
Author Name Unknown Address Unknown Organization K01:[facility] [address] [place] [address] Laboratory Report Ordering Provider Test Date Status LORENZO POON 09/01/2023 12:02:31 Final Observation Date Value Abnormality Reference (Units) Status Source 09/01/2023 12:02:31 Semi-liquid Final Clostridioides difficile toxin and [id number] strain DNA panel - Stool by ALIA with probe detection 09/01/2023 12:02:31 Negative. No C. difficile toxin B gene DNA detected by PCR (Amplified Probe). Negative Final Performing Location [facility] [address] [place] [address]
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
--- OUTSIDE RECORDS SUMMARY | 2024-01-18 13:01 | External Medical Summary | Summary of Care ---
Author Name Unknown Organization [facility] Address [address] [facility] [place] [address] Phone [phone] Care Team Providers Care Vertical Punch Operator Name Role Phone Ta Last MD Primary Care Provider + Reason for Referral * (Within 24 hrs (call dept; emergent)) - Pending Review Specialty Diagnoses / Procedures Referred By Pawan moon Referred To Contact Radiology Diagnoses Right testicular pain Procedures US SCROTUM/TESTES Ta Last MD [facility] [place] [place] [address] Referral ID Status Reason Start Date Expiration Date V isits Requested Visits Authorized [id number] Pending Review 09/14/[phone] Reason for [...] State Yamila Byers [address] [place] [address] [address] Ta Last MD [address] [place] [address] Right testicular pain* Allergies No known active allergiesdocumented as of [...] MG Oral Capsule 0 03/30/2023 3 Discontinued Diphenoxylate-Atr opine 2.5-0.025 MG Oral [...] (FLU shot) (1) Never done COVID-19 Vaccine ( season) 2023 Depression Screening 09/01/2023 *NEPHROLOGY REFERRAL [...] on file Occupational History 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 | Check-out note: Pls schedule u/s shannon today or tomorrow Ta [...] denied any lumps. documented in this encounter Plan of Treatment Upcoming Encounters Date Type Department Care Team (Latest Contact Info) Description 09/22/2023 11:30 AM EST Imaging Radiology [facility] [place] [address] [place] [address] 09/22/2023 1:40 PM EST Office Visit [facility] Disorders Ctr [facility] [place] [address] [place] [phone] Vanessa Hardy DO [address] [place] [address] 10/09/2023 7:45 AM EST Hospital Encounter OR [facility], Operating Room [facility] [address] [place] [phone] Carmelo Cruz MD [address] [place] [address] 10/09/2023 7:45 AM EST - 10/09/2023 9:41 AM EST Surgery OR [facility], [facility] [address] [place] [phone] Carmelo Cruz MD [address] [place] [address] LEFT ARTHROPLASTY INTERPOSITION CARPAL JOINTS 10/16/2023 8:30 AM EST Office Visit Orthopaedics [facility] [address] [place] [address] Carmelo Cruz MD [address] [place] [address] 10/24/2023 7:30 AM EST Office Visit Audiology [facility] [address] [place] [address] Alondra Boyle [facility] [address] [place] [address] 12/28/2023 8:40 AM EDT Office Visit General Internal Medicine [facility] [address] [facility] [place] [address] Ta Last MD 200 [place] [address] Scheduled Orders Name Type Priority Associated Diagnoses Orde r Schedule US SCROTUM/TESTES Medical Imaging SHANNON Right testicular pain Expected: 09/14/2023, Expires: 10/15/2024 Scheduled Procedures Name Priority Associated Diagnoses Date/Ti [...] filedocumented as of this encounter Results * (ABNORMAL) URINALYSIS WITH MICROSCOPIC EXAM (09/14/2023 3:23 PM EST) Color, Urine Yellow Light Yellow, Yellow, Dark Yellow 09/14/2023 3:34 PM EST [facility] Clarity, Urine Clear Clear 09/14/2023 3:[address] Glucose, Urine Negative Negative mg/dL 09/14/2023 3:[address] Bilirubin, Urine Negative Negative 09/14/2023 3:[address] Ketone, Urine Negative Negative mg/dL 09/14/2023 3:[address] Specific [place], Urine 1.025 1.003 - 1.030 09/14/2023 3:[address] Blood, Urine Trace(A) Negative 09/14/2023 3:[address] pH, Urine 5.5 5.0 - 7.5 Units 09/14/2023 3:[address] Protein, Urine Negative Negative mg/dL 09/14/2023 3:[address] Urobilinogen, Urine 0.2 0.2, 1.0 mg/dL 09/14/2023 3:[address] Nitrite, Urine Negative Negative 09/14/2023 3:[address] Esterase, Urine Negative Negative 09/14/2023 3:[address] RBC, Urine 3-5(A) 0 - 2 /HPF 09/14/2023 3:[address] WBC, Urine 0-2 0 - 2 /HPF 09/14/2023 3:[address] Bacteria, Urine 0-25 0 - 25 /HPF 09/14/2023 3:[address] Urine Urine specimen obtained by clean catch procedure / Unknown Non-blood Collection / Unknown 09/14/2023 3:23 PM EST 09/14/2023 3:23 PM EST Ta Last MD LAB URINE ORDERA [facility] [address] [place] [address] documented in this encounter Visit Diagnoses Diagnosis Right testicular pain- Primary Unspecified disorder of male genital organs Primary osteoarthritis of first carpometacarpal joint of left hand Primary localized osteoarthrosis, hand documented in this encounter Care Teams Vertical Punch Operator Relationship Specialty Start Date End Date Ta Last MD 200 [place] [address] PCP - General Internal Medicine 11/19/18 documented as of this encounter
--- OUTSIDE RECORDS SUMMARY | 2024-01-18 13:01 | External Medical Summary ---
Author Name Unknown Address Unknown Organization K01:LABORATORY [address] [address] Laboratory Report Ordering Provider Test Date Status LORENZO POON 09/01/2023 12:02:06 Final Observation Date Value Abnormality Reference (Units ) Status Campylobacter sp DNA.diarrheagenic [Presence] in Stool by ALIA with probe detection 09/01/2023 12:02:06 Negative Negative Final Salmonella sp rpoD gene [Presence] in Stool by ALIA with probe detection 09/01/2023 12:02:06 Negative Negative Final Shigella species+EIEC invasion plasmid antigen H ipaH gene [Presence] in Stool by ALIA with probe detection 09/01/2023 12:02:06 Negative Negative Final Vibrio sp DNA [Identifier] in Specimen by ALIA with probe detection 09/01/2023 12:02:06 Negative Negative Final Yersinia enterocolitica recN gene [Presence] in Stool by ALIA with probe detection 09/01/2023 12:02:06 Negative Negative Final Escherichia coli Stx1 toxin stx1 gene [Presence] in Stool by ALIA with probe detection 09/01/2023 12:02:06 Negative Negative Final Escherichia coli Stx2 toxin stx2 gene [Presence] in Stool by ALIA with probe detection 09/01/2023 12:02:06 Negative Negative Final Norovirus genogroups I and II RNA panel - Stool by ALIA with probe detection 09/01/2023 12:02:06 Negative Negative Final Rotavirus A RNA [Presence] in Stool by ALIA with probe detection 09/01/2023 12:02:06 Negative Negative Final Performing Location LABORATORY [address] [facility] [address]
--- OUTSIDE RECORDS SUMMARY | 2024-01-18 13:01 | External Medical Summary | Summary of Care ---
Author Name Unknown Organization [facility] Address [address] [facility] [place] [address] Phone [phone] Care Team Providers Care Pie Icer Machine Name Role Phone Ta Last MD Primary Care Provider + Reason for Referral * (Within 24 hrs (call dept; emergent)) - Pending Review Specialty Diagnoses / Procedures Referred By Pawan moon Referred To Contact Radiology Diagnoses Right testicular pain Procedures US SCROTUM/TESTES Ta Last MD [facility] [place] [address] [id number] Referral ID Status Reason Start Date Expiration Date V isits Requested Visits Authorized [id number] Pending Review 09/14/2023 999 999 Reason for [...] State Yamila Byers [address] [place] [address] [id number] Ta Last MD [address] [place] [id number] Right testicular pain*; Microscopic hematuria Allergies No known active allergiesdocumented [...] level: Not on file Occupational History 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 - [employer] Employer: [employer] Tobacco Use Smoking status: Former Packs/day: 1.00 [...] performed by Javon Noriega MD at [facility] COLONOSCOPY, DIAGNOSTIC (RECTUM) 06/27/2022 benign adenomatous polyp, repeat 5 yrs / COLONOSCOPY FLEXIBLE PROXIMAL DIAGNOSTIC performed by Evgeny Barreto MD at [facility] DENTAL SURGERY PROCEDURE NEC ELBOW TENOTOMY [...] | Wt 117 kg (258 lb) | MtX452% | BMI 35.48 kg/m | BSA 2.43 [...] Description 09/22/2023 11:30 AM EST Imaging Radiology [address] [place] [address] 09/22/2023 1:40 PM EST Office Visit Sleep Disorders Ctr [address] [place] [phone] Vanessa Hardy DO [address] [place] [address] 10/09/2023 7:45 AM EST Hospital Encounter [facility], Operating Room [facility] [address] [place] [phone] Carmelo Cruz MD [address] [place] [address] 10/09/2023 7:45 AM EST - 10/09/2023 9:41 AM EST Surgery OR [facility], Operating Room [facility] [address] [place] [phone] Carmelo Cruz MD [address] [place] [address] LEFT ARTHROPLASTY INTERPOSITION CARPAL JOINTS 10/16/2023 8:30 AM EST Office Visit Orthopaedics [facility] [address] [place] [address] Carmelo Cruz MD [address] [place] [address] 10/24/2023 7:30 AM EST Office Visit Audiology [facility] [address] [place] [address] Alondra Boyle Au.D. [address] [place] [address] 12/28/2023 8:40 AM EDT Office Visit General Internal Medicine [facility] [address] [facility] [place] [address] Ta Last MD [address] [facility] [place] [address] Scheduled Orders Name Type Priority Associated Diagnoses Orde r Schedule US SCROTUM/TESTES Medical Imaging SHANNON Right testicular pain Expected: 09/14/2023, Expires: 10/15/2024 URINALYSIS WITH MICROSCOPIC EXAM Lab Routine Microscopic [...] TO RESISTANT HTN 09/04/2023 GFR 04/14/2024 04/14/2023, 06/0 05/2023, 02/07/2023, Additional [...] Dark Yellow 09/14/2023 3:34 PM EST [facility] [place] 56- Clarity, Urine Clear Clear 09/14/2023 3:34 PM EST [facility] [place] 56- Glucose, Urine Negative Negative mg/dL 09/14/2023 3:34 PM EST [facility] 56- Bilirubin, Urine Negative Negative 09/14/2023 3:34 PM EST [facility] 56- Ketone, Urine Negative Negative mg/dL 09/14/2023 3:34 PM [facility] 56- Specific Hinkle, Urine 1.025 1.003 - 1.030 09/14/2023 3:34 PM EST [facility] [place] 56- Blood, Urine Trace(A) Negative 09/14/2023 3:34 PM EST [facility] 56- pH, Urine 5.5 5.0 - 7.5 Units 09/14/2023 3:34 PM [facility] 56- Protein, Urine Negative Negative mg/dL 09/14/2023 3:34 PM [facility] LABORATORY [place] 56- Urobilinogen, Urine 0.2 0.2, 1.0 mg/dL 09/14/2023 3:34 PM EST [facility] [place] 56- Nitrite, Urine Negative Negative 09/14/2023 3:34 PM [facility]ORY [place] 56- Esterase, Urine Negative Negative 09/14/2023 3:34 PM [facility] [place] 56- RBC, Urine 3-5(A) 0 - 2 /HPF 09/14/2023 3:34 PM [facility] 56- WBC, Urine 0-2 0 - 2 /HPF 09/14/2023 3:34 PM [facility] 56- Bacteria, Urine 0-25 0 - 25 /HPF 09/14/2023 3:34 PM EST [facility] [place] 56- Urine Urine specimen obtained by clean catch procedure / Unknown Non-blood Collection / Unknown 09/14/2023 3:23 PM EST 09/14/2023 3:23 PM EST Ta Last MD LAB URINE ORDERA [facility] 56-02 [address] [place] [address] documented in this encounter Visit Diagnoses Diagnosis Right testicular pain- Primary Unspecified disorder of male genital organs Microscopic hematuria Primary osteoarthritis of first carpometacarpal joint of left hand Primary localized osteoarthrosis, hand documented in this encounter Care Teams Pie Icer Machine Relationship Specialty Start Date End Date Ta Last MD [facility] [address] PCP - General Internal Medicine 11/19/18 documented as of this encounter
--- OUTSIDE RECORDS SUMMARY | 2024-01-18 13:01 | External Medical Summary | Summary of Care ---
Author Name Unknown Organization [facility] Address [address] [facility] [place] [address] Phone [phone] Care Team Providers Care Food And Beverage Order Clerk Name Role Phone Ta Last MD Primary Care Provider + Reason for Visit * Reason Comments Outpatient Testing Encounter Details Date Type Department Care Team (Late st Contact Info) Description 08/31/2023 2:00 PM EST Laboratory [facility], [facility] [phone] [facility] [address] Arrived Allergies No known active allergiesdocumented as of [...] PM EST Office Visit Sleep Disorders Ctr [facility] [address] [place] [phone] Vanessa Hardy DO [address] [place] [address] 10/09/2023 7:45 AM EST Hospital Encounter OR [facility], Operating Room [facility] [address] [place] [phone] Carmelo Cruz MD [address] [place] [address] 10/09/2023 7:45 AM EST - 10/09/2023 9:51 AM EST Surgery OR [facility], Operating Room [facility] [address] [place] [phone] Carmelo Cruz MD [address] [place] [address] LEFT ARTHROPLASTY INTERPOSITION CARPAL JOINTS 10/16/2023 8:30 AM EST Office Visit Orthopaedics [facility] [address] [place] [address] Carmelo Cruz MD [address] [place] [address] 12/28/2023 8:40 AM EDT Office Visit General Internal Medicine [facility] 200 [place] [address] Ta Last MD 200 [facility] [place] [address] Scheduled Procedures Name Priority Associated Diagnoses Date/Ti [...] filedocumented as of this encounter Care Teams Food And Beverage Order Clerk Relationship Specialty Start Date End Date Ta Last MD 200 [place] [address] PCP - General Internal Medicine 11/19/18 documented as of this encounter
--- OUTSIDE RECORDS SUMMARY | 2024-01-18 13:01 | External Medical Summary | Summary of Care ---
Author Name Unknown Organization [facility] Address [address] [facility] [address] Phone [phone] Care Team Providers Care Information Systems Project Manager Name Role Phone Ta Last MD Primary Care Provider + Reason for Visit * Reason Onset Date Comments Sleep Apnea Device 08/31/2023 Encounter Details Date Type Department Care Team (Late st Contact Info) Description 08/31/2023 Telephone Sleep Lab, [facility] [address] Vanessa Hardy, DO [address] [place] [address] Sleep Apnea Device Allergies No known active allergiesdocumented as of [...] encounter Miscellaneous Notes * Telephone Encounter - Allison Posada RPSGT - 08/31/2023 5:26 AM EST [employer] study was successfully uploaded. documented in this encounter Plan of Treatment Upcoming Encounters Date Type Department Care Team (Latest Contact Info) Description 08/31/2023 1:00 PM EST Office Visit Gastroenterology, [facility] [address] [place] [address] Zachary Grider CRNP [address] [place] [address] 09/22/2023 1:40 PM EST Office Visit Sleep Disorders Ctr [facility] [address] [place] [phone] Vanessa Hardy DO [address] [place] [address] 10/09/2023 10:08 AM EST Hospital Encounter OR [facility], Operating Room [facility] [address] [place] [phone] Carmelo Cruz MD [address] [place] [address] 10/09/2023 10:08 AM EST - 10/09/2023 12:14 PM EST Surgery OR [facility], Operating Room [facility] [address] [place] [phone] Carmelo Cruz MD [address] [place] [address] LEFT ARTHROPLASTY INTERPOSITION CARPAL JOINTS 10/16/2023 8:30 AM EST Office Visit Orthopaedics [facility] [address] [place] [address] Carmelo Cruz MD [address] [place] [address] 12/28/2023 8:40 AM EDT Office Visit General Internal Medicine [facility] [address] [facility] [place], [place] [address] Ta Last MD 200 [facility] [place] [address] Scheduled Procedures Name Priority Associated Diagnoses Date/Ti me ARTHROPLASTY INTERPOSITION CARPAL JOINTS Primary osteoarthritis of first carpometacarpal joint of left hand 10/09/2023 10:08 AM EST TENDON TRANSFER OR TRANSPLANT FOREARM Primary osteoarthritis of first carpometacarpal joint of left hand 10/09/2023 10:08 AM EST COLONOSCOPY FLEXIBLE PROXIMAL DIAGNOSTIC Recall [...] filedocumented as of this encounter Care Teams Information Systems Project Manager Relationship Specialty Start Date End Date Ta Last MD 200 [facility] [place] [address] PCP - General Internal Medicine 11/19/18 documented as of this encounter
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
--- OUTSIDE RECORDS SUMMARY | 2024-01-18 13:02 | External Medical Summary | Summary of Care ---
Author Name Unknown Organization [facility] Address [address] [facility] [place] [address] Phone [phone] Care Team Providers Care Cascade Operator Name Role Phone Ta Last MD [...] 08/23/2023 11:30 AM EST PulmDiagnostic Sleep Lab [facility] [address] [place] [address] Afshin Arteaga Med Home Study [facility] [address] [place] [address] 08/25/2023 9:30 AM EST Office Visit Orthopaedics [facility] [address] [place] [address] Carmelo Cruz MD [address] [place] [address] 09/22/2023 1:40 PM EST Office Visit Sleep Disorders Ctr [facility] [address] [place] [phone] Vanessa Hardy, [address] [place] [address] 12/28/2023 8:40 AM EDT Office Visit General Internal Medicine [facility] [place] 200 [facility] [place] [address] Ta Last MD 200 [facility] [place] [address] Scheduled Procedures Name Priority Associated Diagnoses Date/Ti [...] filedocumented as of this encounter Care Teams Cascade Operator Relationship Specialty Start Date End Date Ta Last MD 200 [place] [address] PCP - General Internal Medicine 11/19/18 documented as of this encounter
--- OUTSIDE RECORDS SUMMARY | 2024-01-18 13:02 | External Medical Summary | Summary of Care ---
Author Name Unknown Organization [facility] Address [address] [facility] [place] [address] Phone [phone] Care Team Providers Care Manager Hris Name Role Phone Ta Last MD Primary [...] 08/23/2023 11:30 AM EST PulmDiagnostic Sleep Lab [facility] [address] [place] [address] Afshin Arteaga Med Home Study [facility] [address] [place] [address] 08/25/2023 9:30 AM EST Office Visit Orthopaedics [facility] [address] [place] [address] Carmelo Cruz MD [address] [place] [address] 09/22/2023 1:40 PM EST Office Visit Sleep Disorders Ctr [facility] [address] [place] [phone] Vanessa Hardy, [address] [place] [address] 12/28/2023 8:40 AM EDT Office Visit General Internal Medicine [facility] [place] [address] [facility] [place] [address] Ta Last MD [address] [facility] [place] [address] Scheduled Procedures Name Priority Associated Diagnoses Date/Ti [...] filedocumented as of this encounter Care Teams Manager Hris Relationship Specialty Start Date End Date Ta Last MD 200 [place] [address] PCP - General Internal Medicine 11/19/18 documented as of this encounter
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
--- OUTSIDE RECORDS SUMMARY | 2024-01-18 13:02 | External Medical Summary | Summary of Care ---
Author Name Unknown Organization [facility] Address [address] [facility] [place] [address] Phone [phone] Care Team Providers Care Agile Qa Tester Name Role Phone Ta Last MD Primary Care Provider + Reason for Referral * Evaluate & Treat - Unlimited Visits (Within 30 days (routine)) - Pending Review Specialty Diagnoses / Procedures Referred By Pawan moon Referred To Contact Gastroenterology Diagnoses Change in stool Ta Last MD [address] [place], [place] [address] [address] Referral ID Status Reason Start Date Expiration Date Visits Requested Visits Authorized [id number] Pending Review Specialty Services Required 3 999 [...] Internal [place] [address] Ta Last MD 200 [facility] [place] [address] Mixed emotional features as adjustment reaction*; Moderate [...] level: Not on file Occupational History Occupation: [employer] Employer: [employer] Tobacco Use Smoking status: Former Packs/day: 1.00 [...] performed by Javon Noriega MD at [facility] COLONOSCOPY, DIAGNOSTIC (RECTUM) 06/27/2022 benign adenomatous polyp, repeat 5 yrs / COLONOSCOPY FLEXIBLE PROXIMAL DIAGNOSTIC performed by Evgeny Barreto MD at [facility] DENTAL SURGERY PROCEDURE NEC ELBOW TENOTOMY REPAIR, [...] 08/23/2023 11:30 AM EST PulmDiagnostic Sleep Lab [facility] [address] [place] [address] [facility], Sleep Med Home Study [facility] [address] [place] [address] 08/25/2023 9:30 AM EST Office Visit Orthopaedics [facility] [address] [place] [address] Carmelo Cruz MD [address] [address] 09/22/2023 1:40 PM EST Office Visit Sleep Disorders Ctr [facility] [address] [facility] [place] [phone] Vanessa Hardy DO [address] [place] [address] 11/15/2023 9:30 AM EST [facility] [address] [place] [address] Zachary Grider CRNP 132 [facility] [place] [address] 12/28/2023 8:40 AM EDT Office Visit General Internal Medicine [facility] 200 [facility] [place] [address] Ta Last MD 200 [facility] [place] [address] Scheduled Procedures Name Priority Associated Diagnoses Date/Ti [...] site documented in this encounter Care Teams Agile Qa Tester Relationship Specialty Start Date End Date Ta Last MD 200 [place] [address] PCP - General Internal Medicine 11/19/18 documented as of this encounter
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
--- OUTSIDE RECORDS SUMMARY | 2024-01-18 13:02 | External Medical Summary | Summary of Care ---
Author Name Unknown Organization [facility] Address [address] [facility] [place] [address] Phone [phone] Care Team Providers Care Education Intern Name Role Phone Ta Last MD Primary [...] 08/23/2023 11:30 AM EST PulmDiagnostic Sleep Lab [facility] 132 [place] [address] Afshin Arteaga Med Home Study [facility] [address] [place] [address] 08/25/2023 9:30 AM EST Office Visit Orthopaedics [facility] [address] [place] [address] Carmelo Cruz MD 132 [place] [address] 09/22/2023 1:40 PM EST Office Visit Sleep Disorders Ctr [facility] 132 [place] [phone] Vanessa Hardy, [address] [place] [address] 12/28/2023 8:40 AM EDT Office Visit General Internal Medicine [place] 200 [facility] [place] [address] Ta Last MD 200 [facility] [place] [address] Scheduled Procedures Name Priority Associated Diagnoses Date/Ti [...] filedocumented as of this encounter Care Teams Education Intern Relationship Specialty Start Date End Date Ta Last MD 200 [place] [address] PCP - General Internal Medicine 11/19/18 documented as of this encounter
--- OUTSIDE RECORDS SUMMARY | 2024-01-18 13:02 | External Medical Summary | Summary of Care ---
Author Name Unknown Organization [facility] Address [address] [facility] [place] [address] Phone [phone] Care Team Providers Care Yarn Dyer Name Role Phone Ta Last MD Primary Care Provider + Reason for Visit * Reason Onset Date Comments Test Results 07/20/2023 Encounter Details Date Type Department Care Team (Late st Contact Info) Description 07/20/2023 Telephone General Internal Medicine [facility] [address] [facility] [place] [address] Ta Last MD 200 [facility], [place] [phone] Test Results Allergies No known active allergiesdocumented [...] encounter Miscellaneous Notes * Telephone Encounter - Alta Pereira LPN [...] pharmacy. He would prefer to stay with [facility]. He is almost out of this medication [...] 11:30 AM EST PulmDiagnostic Sleep Lab [facility] [address] [place] [address] [place] [facility] Med Home Study [facility] [address] [place] [address] 08/25/2023 9:30 AM EST Office Visit Orthopaedics [facility] [address] [place] [address] Carmelo Cruz MD 132 [place] [address] 09/22/2023 1:40 PM EST Office Visit Sleep Disorders Ctr [facility] [address] [place] [phone] Vanessa Hardy DO 132 [place] [address] 12/28/2023 8:40 AM EDT Office Visit General Internal Medicine [employer] 200 [facility] [place] [address] Ta Last MD [address] [facility] [place] [address] Scheduled Procedures Name Priority Associated Diagnoses Date/Ti [...] disorder documented in this encounter Care Teams Yarn Dyer Relationship Specialty Start Date End Date Ta Last MD 200 [place] [address] PCP - General Internal Medicine 11/19/18 documented as of this encounter
--- OUTSIDE RECORDS SUMMARY | 2024-01-18 13:02 | External Medical Summary | Summary of Care ---
Author Name Unknown Organization [facility] Address [address] [facility] [place] [address] Phone [phone] Care Team Providers Care Paramedic Rn Name Role Phone Ta Last MD [...] 08/23/2023 11:30 AM EST PulmDiagnostic Sleep Lab [facility] 132 [place] [address] Afshin Arteaga Med Home Study [facility] [address] [place] [address] 08/25/2023 9:30 AM EST Office Visit Orthopaedics [facility] [address] [place] [address] Carmelo Cruz MD 132 [place] [address] 09/22/2023 1:40 PM EST Office Visit Sleep Disorders Ctr [facility] 132 [place] [phone] Vanessa Hardy, [address] [place] [address] 12/28/2023 8:40 AM EDT Office Visit General Internal Medicine [facility] [place] 200 [facility] [place] [address] Ta Last MD 200 [facility] [place] [address] Scheduled Procedures Name Priority Associated Diagnoses Date/Ti [...] filedocumented as of this encounter Care Teams Paramedic Rn Relationship Specialty Start Date End Date Ta Last MD 200 [place] [address] PCP - General Internal Medicine 11/19/18 documented as of this encounter
--- OUTSIDE RECORDS SUMMARY | 2024-01-18 13:02 | External Medical Summary | Summary of Care ---
Author Name Unknown Organization [facility] Address [address] [facility] [place] [address] Phone [phone] Care Team Providers Care Jewelry Drill Operator Name Role Phone Ta Last MD Primary Care Provider + Reason for Visit * Reason Onset Date Comments Test Results 07/20/2023 Encounter Details Date Type Department Care Team (Late st Contact Info) Description 07/20/2023 Telephone General Internal Medicine [facility] 200 [facility] [place] [address] Ta Last MD 200 [facility], [place] [phone] Test Results Allergies No known active allergiesdocumented [...] Telephone Encounter - Ta Last MD - 07/25/2023 12:09 PM EDT Given both strengths on back order, I would recommend he try a different pharmacy * Telephone Encounter - Janell Wilson LPN - 07/25/2023 9:18 AM EDT Received fax from [email or web address]. Lorazepam 1mg and 0.5m tablets are on [...] EST PulmDiagnostic Sleep Lab [facility] 132 [place] [address] [facility], Sleep Med Home Study [facility] 132 [place] [address] 08/25/2023 9:30 AM EST Office Visit Orthopaedics [facility] [address] [place] [address] Carmelo Cruz MD [address] [place] [address] 09/22/2023 1:40 PM EST Office Visit Sleep Disorders Ctr [facility] [address] [place] [phone] Vanessa Hardy DO [address] [place] [address] 12/28/2023 8:40 AM EDT Office Visit General Internal Medicine [facility] 200 [facility] [place] [address] Ta Last MD 200 [place] [address] Scheduled Procedures Name Priority Associated Diagnoses Date/Ti [...] disorder documented in this encounter Care Teams Jewelry Drill Operator Relationship Specialty Start Date End Date Ta Last MD 200 [place] [address] PCP - General Internal Medicine 11/19/18 documented as of this encounter
--- OUTSIDE RECORDS SUMMARY | 2024-01-18 13:02 | External Medical Summary | Summary of Care ---
Author Name Unknown Organization [facility] Address [address] [facility] [place] [address] Phone [phone] Care Team Providers Care Forest Ranger Technician Name Role Phone Ta Last MD Primary Care Provider + Reason for Visit * Reason Onset Date Comments Test Results 07/20/2023 Encounter Details Date Type Department Care Team (Late st Contact Info) Description 07/20/2023 Telephone General Internal Medicine [facility] 200 [facility] [place] [address] Ta Last MD 200 [facility], [place] [phone] Test Results Allergies No known active allergiesdocumented as of this encounter (statuses as of 07/26/2023) Medications Medication Sig Dispensed Refills Start Date [...] as of this encounter (statuses as of 07/26/2023) Active Problems Problem Noted Date Diagnosed Date BEBO (generalized anxiety disorder) 09/01/2022 HTN, goal below 130/80 08/05/2021 Vitamin B12 deficiency 12/21/2018 Neuropathy 12/19/2018 TRUNG (obstructive sleep apnea) 11/19/2018 Moderate major depression, single episode 2017 Difficulty with CPAP use 06/04/2018 Mixed hyperlipidemia IBS (irritable bowel syndrome) documented as of this encounter (statuses as of 07/26/2023) Resolved Problems Problem Noted Date Diagnosed Date Resolved Date Pre-diabetes 12/21/2018 09/09/2021 TRUNG on CPAP 01/31/2018 11/19/2018 Quadriceps tendon rupture 09/29/2015 Overview: Laceration 10% with motorcycle acc[employer]net HTN, goal below 140/90 08/15/201408/05 Shoulder pain 06/10/2019 Overview: injury - supraspinatous documented as of this encounter (statuses as of 07/26/2023) Immunizations Name Administration Dates Next Due TDAP [...] encounter Miscellaneous Notes * Telephone Encounter - Karma Levy LPN - 07/26/2023 11:38 AM EDT Patient aware and verbalized understanding * Telephone Encounter - Ta Last MD - 07/25/2023 12:09 PM EDT Given both strengths on back order, I would recommend he try a different pharmacy * Telephone Encounter - Janell Wilson LPN - 07/25/2023 9:18 AM EDT Received fax from [employer]. Lorazepam 1mg and 0.5m tablets are on [...] 11:30 AM EST PulmDiagnostic Sleep Lab [facility] [address] [place] [address] [place], Sleep Med Home Study [facility] [address] [place] [address] 08/25/2023 9:30 AM EST Office Visit Orthopaedics [facility] [address] [place] [address] Carmelo Cruz MD [address] [place] [address] 09/22/2023 1:40 PM EST [facility] [address] [place] [phone] Vanessa Hardy DO [address] [place] [address] 12/28/2023 8:40 AM EDT Office Visit General Internal Medicine [facility] 200 [place] [address] Ta Last MD 200 [place] [address] Scheduled Procedures Name Priority Associated Diagnoses Date/Ti [...] disorder documented in this encounter Care Teams Forest Ranger Technician Relationship Specialty Start Date End Date Ta Last MD 200 [place] [address] PCP - General Internal Medicine 11/19/18 documented as of this encounter
--- OUTSIDE RECORDS SUMMARY | 2024-01-18 13:02 | External Medical Summary | Summary of Care ---
Author Name Unknown Organization [facility] Address [address] [facility] [place] [address] Phone [phone] Care Team Providers Care Perinatal Instructor Name Role Phone Ta Last MD Primary [...] joint of left thumb Claudia Johnson MD [address] [employer] [place] [address] Referral ID Status Reason Start Date Expiration Date Visits Requested Visits Authorized [id number] Pending Review Specialty Services Required [phone] Encounter Details Date Type Department Care Team (Latest Contact Info) Description 08/25/2023 9:30 AM EST Office Visit Orthopaedics [facility] [address] [employer] [place] [address] Carmelo Cruz MD [address] [place] [address] Primary osteoarthritis of first carpometacarpal joint of left hand* Allergies No known active allergiesdocumented as of this encounter (statuses as of 08/25/2023) Medications Medication Sig Dispensed Refills Start Date [...] as of this encounter (statuses as of 08/25/2023) Active Problems Problem Noted Date Diagnosed Date BEBO (generalized anxiety disorder) 09/01/2022 HTN, goal below 130/80 08/05/2021 Vitamin B12 deficiency 12/21/2018 Neuropathy 12/19/2018 TRUNG (obstructive sleep apnea) 11/19/2018 Moderate major depression, single episode 2017 Difficulty with CPAP use 06/04/2018 Mixed hyperlipidemia IBS (irritable bowel syndrome) documented as of this encounter (statuses as of 08/25/2023) Resolved Problems Problem Noted Date Diagnosed Date Resolved Date Pre-diabetes 12/21/2018 09/09/2021 TRUNG on CPAP 01/31/2018 11/19/2018 Quadriceps tendon rupture 09/29/2015 Overview: Laceration 10% with motorcycle accidnet HTN, goal below 140/90 08/15/201408/05 Shoulder pain 06/10/2019 Overview: injury - supraspinatous documented as of this encounter (statuses as of 08/25/2023) Immunizations Name Administration Dates Next Due TDAP [...] thumb HPI: The patient is a 53-year-old [id number] man. He is currently not employed. 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 He is seen today at the recommendation [...] performed by Javon Noriega MD at [facility] COLONOSCOPY, DIAGNOSTIC (RECTUM) 06/27/2022 benign adenomatous polyp, repeat 5 yrs / COLONOSCOPY FLEXIBLE PROXIMAL DIAGNOSTIC performed by Evgeny Barreto MD at ENDOSCOPY [facility] DENTAL SURGERY PROCEDURE NEC ELBOW TENOTOMY REPAIR, [...] 08/31/2023 1:00 PM EST Office Visit Gastroenterology, [facility] [address] [place] [address] Zachary Grider CRNP 132 [place] [address] 09/22/2023 1:40 PM EST Office Visit Sleep Disorders Ctr [facility] [address] [place] [phone] Vanessa Hardy, DO [address] [place] [address] 12/28/2023 8:40 AM EDT Office Visit General Internal Medicine [facility] 200 [facility] [place] [address] Ta Last MD 200 [facility] [place] [address] Scheduled Procedures Name Priority Associated Diagnoses Date/Ti [...] hand documented in this encounter Care Teams Perinatal Instructor Relationship Specialty Start Date End Date Ta Last MD 200 [facility] [place] [address] PCP - General Internal Medicine 11/19/18 documented as of this encounter
--- OUTSIDE RECORDS SUMMARY | 2024-01-18 13:03 | External Medical Summary | Summary of Care ---
Author Name Unknown Organization [facility] Address [address] [facility] [place] [address] Phone [phone] Care Team Providers Care Fast Food Fry Cook Name Role Phone Ta Last MD Primary Care Provider + Reason for Visit * Reason Onset Date Comments Test Results 07/20/2023 Encounter Details Date Type Department Care Team (Late st Contact Info) Description 07/20/2023 Telephone General Internal Medicine [facility] 200 [facility] [place] [address] Ta Last MD 200 [facility], [place] [phone] Test Results Allergies No known active allergiesdocumented [...] encounter Miscellaneous Notes * Telephone Encounter - Pacheco Hemphill PA-C [...] 08/23/2023 11:30 AM EST PulmDiagnostic Sleep Lab [facility] [address] [place] [address] [facility] Sleep Med Home Study [facility] [address] [place] [address] 08/25/2023 9:30 AM EST Office Visit Orthopaedics [facility] [address] [place] [address] Carmelo Cruz MD [address] [place] [address] 09/22/2023 1:40 PM EST Office Visit Sleep Disorders Ctr [facility] [address] [place] [phone] Vanessa Hardy DO [address] [place] [address] 12/28/2023 8:40 AM EDT Office Visit General Internal Medicine [place] [address] [place] [address] Ta Last MD 200 [facility] [place] [place] [address] Scheduled Procedures Name Priority Associated Diagnoses Date/Ti [...] disorder documented in this encounter Care Teams Fast Food Fry Cook Relationship Specialty Start Date End Date Ta Last MD [address] [place] [address], [place] [address] PCP - General Internal Medicine 11/19/18 documented as of this encounter
--- OUTSIDE RECORDS SUMMARY | 2024-01-18 13:03 | External Medical Summary | Summary of Care ---
Author Name Unknown Organization [facility] Address [address] [facility] [place] [address] Phone [phone] Care Team Providers Care Business Process Manager Name Role Phone Ta Last MD [...] 08/23/2023 11:30 AM EST PulmDiagnostic Sleep Lab [facility] [address] [place] [address] Afshin Arteaga Med Home Study [facility] [address] [place] [address] 08/25/2023 9:30 AM EST Office Visit Orthopaedics [facility] [address] [place] [address] Carmelo Cruz MD 132 [place] [address] 09/22/2023 1:40 PM EST Office Visit Sleep Disorders Ctr [facility] [address] [place] [phone] Vanessa Hardy, [address] [place] [address] 12/28/2023 8:40 AM EDT Office Visit General Internal Medicine [place] 200 [facility] [place] [address] Ta Last MD 200 [facility] [place] [address] Scheduled Procedures Name Priority Associated Diagnoses Date/Ti [...] filedocumented as of this encounter Care Teams Business Process Manager Relationship Specialty Start Date End Date Ta Last MD 200 [place] [address] PCP - General Internal Medicine 11/19/18 documented as of this encounter
[2024-01-18] MEDS: oxyCODONE HCL IR 5 MG TAB (IMMEDIATE RELEASE) PO PRN (15:41)
[2024-01-18] MEDS: LORazepam 0.5 MG TAB PO PRN (22:15)
[2024-01-19 05:52] LABS: Hematocrit (blood only) 44.1 % (42.0-52.0); Hemoglobin 15.5 g/dl (14.0-18.0); Mean Corpuscular Hemoglobin 30.5 pg (25.0-34.0); Mean Corpuscular Hgb Conc 35.1 g/dL (32.0-36.0); Mean Corpuscular Volume 86.8 fL (80.0-100.0); Mean Platelet Volume 9.8 fL (9.4-12.4); Platelet Count 171 K/uL (130-400); RDW Coefficient of Variation 11.7 % (11.5-14.5); RDW Standard Deviation 37.8 fL (36.4-46.3); Red Blood Count 5.08 M/uL (4.70-6.10); White Blood Count 6.55 K/ul (4.8-10.8)
[2024-01-19 06:09] LABS: BUN Creatinine Ratio 12.4 (10-20); Calcium 8.9 mg/dl (8.6-10.3); Creatinine Clr Calc Pharmacy 104.2 ml/min; Est GFR (African American) 92.8 ml/min; Est GFR (Non-African American) 80.1 ml/min; Potassium 3.8 mmol/L (3.5-5.1)
[2024-01-19 06:38] LABS: ANTI-Xa, UFH(UnfractionatedHep 0.31 IU/ml (0.3-0.7)
[2024-01-19 08:07] VITALS: TEMP 98.2
--- NOTE | 2024-01-19 11:43 | Discharge Summary ---
Date of Service January 19, 2024 Admission HPI Per Admitting Provider Pt is a 53yoM with PMHx significant for HTN, HLD, TRUNG with CPAP, BEBO, alcohol abuse (states he quit end on November 2023) and previous smoking and chewing use who was referred by his PCP to the ED with PE noted on outpatient imaging. Pt with dilated aortic root and gets frequent imaging. He notes he has also been having dyspnea on exertion and PCP ordered an echo and followed up with a CT chest which he had completed today for a dilated aortic root. That CT noted pulmonary emboli and he states he was advised to present to the ED for further evaluation. Had CT done today which noted the above findings, PE in right upper and middle pulmonary arteries. Pt notes no recent travel but notes he has been more sedentary after losing his job in the winter. Also notes strong family Hx with mother passing from [facility]. Denies any associated SOB currently though he notes dyspnea on exertion sometimes. Denies chest pain or palpitations. States occasionally gets lower extremity swelling. States he used to drink 1/5 of alcohol heavily for some time but quit drinking at the end of November. He notes he still has an occasional beer but quit drinking heavy liquor. Notes a smoking Hx and chewing history for many years stopped in 1999. Admission Exam Per Admitting Provider General: Alert, oriented. No acute distress Skin: No noted rashes or bruises Psych: Appropriate mood and affect Neuro: No gross deficits HEENT: NC/AT Chest: Nontender to palpation. CV: RRR Resp: Breath sounds clear bilaterally, no increased effort of breathing. Abdomen: Soft, nontender, nondistended Extremities: Trace edema in lower extremities bilaterally Principal Diagnosis Acute pulmonary embolus Discharge Exam General: Alert, oriented. No acute distress Skin: No noted rashes or bruises Psych: Appropriate mood and affect Neuro: No gross deficits HEENT: NC/AT Chest: Nontender to palpation. CV: RRR Resp: Breath sounds clear bilaterally, no increased effort of breathing. Abdomen: Soft, nontender, nondistended Extremities: Trace pedal edema bilaterally Discharge Data Allergies Allergy/AdvReac Type Severity Reaction Status Date / Time No Known Allergies Allergy Verified 01/17/24 17:39 Consultations 01/17/24 15:44 ED Decision to Admit Stat Ordered Studies 01/17/24 15:03 US venous doppler LE BI Stat FINDINGS: There is normal compressibility, flow, and augmentation within the bilateral lower extremity deep venous systems. IMPRESSION: No DVT within the right or left lower extremity. Hospital Course (1) Pulmonary embolism: Plan Pt is a 53yoM with PMHx significant for HTN, HLD, TRUNG with CPAP, BEBO, alcohol abuse (states he quit end on November 2023) and previous smoking and chewing use who was referred by his PCP to the ED with PE noted on outpatient imaging. CTA Chest Non Coronary with Contrast 01/17/24 IMPRESSION: Acute segmental pulmonary embolus in the right upper and middle pulmonary arteries. Note this exam was not timed off the pulmonary arteries and was performed to assess an aortic aneurysm. Recommend referral to ER for further evaluation given patient's clinical symptoms were compatible with dyspnea on e xertion. Trileaflet aortic valve with ectasia of the aortic root measuring up to 41 millimeters. Possible left lateral 4th through 6th rib fractures (obscured by respiratory motion). Correlation with clinical history of trauma and point tenderness is recommended. Pulmonary Emboli Dilated Aortic Root poss. left lateral 4th-6th tib fx Pt with dilated aortic root and gets frequent imaging He notes he has been having dyspnea on exertion and PCP ordered an echo and followed up with this CT Had CT done today which noted the above findings, PE in right upper and middle pulmonary arteries. Pt notes no recent travel but notes he has been more sedentary after losing his job in the winter Also notes strong family Hx with mother passing from PEs Doppler US done in the ED with no noted DVTs bilaterally + dyspnea on exertion sometimes Reports substernal chest pain with deep inhalation pt hemodynamically stable Dilated root on imaging stable Echo ordered to assess for heart strain -normal LV wall thickness. LV wall motion is abnormal. LVEF 60 to 65%. Grade 1 diastolic dysfunction. Aortic root is moderately dilated, 4.4 cm. Proximal ascending aorta diameter is normal. RV is normal in size and function. Doppler findings do not suggest pulmonary hypertension. Started on Heparin drip, will now switch to Eliquis, followup outpt for genetic testing Chronic Alcohol Use Notes he quit drinking end of November 2023 At risk AWSS protocol ordered TRUNG cpap qhs Continue other home meds as ordered Total Time Total Time Spent Total Time Spent (In Minutes): 40 Discharge Plan Discharge Items Patient Disposition: Home - Self-Care Reason For Visit: PE Discharge Diagnosis: Acute pulmonary embolus Activity: Per Instructions section Non-emergency contact: Primary Care Provider Call non-emergency contact if: you have any medication questions and your symptoms worsen Follow-up/Referrals: Ta Last MD [Primary Care Provider] - (Date & Time 01/23/2024 9:00 AM Provider Matias Reyes DO Department General Internal Medicine [facility] ) Diet: Heart Healthy Addtl Attending Provider Instructions: Follow up with your primary care doctor within 1 week. Take Eliquis 10 mg twice a day for 1 week, then take Eliquis 5 mg twice a day. Pending Studies at Discharge: No Stand-Alone Forms: My [facility] [employer], Smoking Cessation Medications and DC Order Prescriptions: New oxycodone 5 mg Tablet 5 mg PO Q4H PRN (Reason: pain) Qty: 7 0RF Eliquis 5 mg tablet 5 mg PO BID Qty: 60 0RF Rx Instructions: take 10 mg bid for 1 week, then take 5 mg bid Continued cyanocobalamin (vitamin B-12) [Vitamin B-12] 1,000 mcg Tablet 1,000 mcg PO DAILY amlodipine 5 mg Tablet 5 mg PO QAM flaxseed oil 1,000 mg Capsule 1,000 mg PO DAILY cholecalciferol (vitamin D3) [Vitamin D3] 1,000 unit Capsule 1,000 unit PO DAILY red yeast rice 600 mg Capsule 1,200 mg PO DAILY allopurinol 100 mg tablet 100 mg PO BID gabapentin 100 mg capsule See Rx Instructions .ROUTE .COMPLEX Rx Instructions: TAKES 200 MG QAM, THEN 200 MG IN THE AFTERNOON AND 300 MG QHS. diclofenac sodium 1 % gel 2 g TOPICAL QID PRN (Reason: Pain) lisinopril-hydrochlorothiazide 20-12.5 mg tablet 2 tab PO DAILY acetaminophen [Tylenol] 325 mg Tablet 650 mg PO Q6H PRN (Reason: Pain) citalopram 40 mg tablet 40 mg PO QAM ibuprofen 200 mg Tablet 200 - 800 mg PO Q6H PRN (Reason: Pain) metoprolol succinate 25 mg tablet extended release 24 hr 25 mg PO QAM lorazepam 1 mg tablet 0.5 mg PO Q8H PRN (Reason: Anxiety) fluticasone propionate [Flonase] 50 mcg/actuation [place],Suspension 1 spray INTRANASAL DAILY Rx Instructions: administer into each nostril buspirone 15 mg tablet See Rx Instructions .ROUTE .COMPLEX Rx Instructions: TAKES 30 MG QAM, THEN 15 MG QHS Discharge Orders: Discharge Order (Routine); Ordered 01/19/24 Ordered By: Christian Kay Admission Data Admit Date/Time: 01/17/24 18:07 Attending Provider: Christian Kay Admit Provider: Ashlyn Negro Primary Care Provider: Ta Last Other Providers: Ashlyn Negro
[2024-01-19 11:59] VITALS: RESP 20; O2SAT 97
[2024-01-19] MEDS: APIXABAN 5 MG TABLET PO SCH (13:10)
[2024-01-19 13:40] VITALS: BP 158/97
[2024-01-19 13:42] VITALS: PULSE 59
== END 2024-01-19 14:47 | disposition home or self-care (01) | DRG 176 ==
LOC: ED 14:42 → SUATTDRO 18:07 → EDINP 18:07 → 2S 19:58
DX: K21.9 Gastro-esophageal reflux disease without esophagitis; S22.42XA Multiple fractures of ribs, left side, initial encounter for closed fracture; M10.9 Gout, unspecified; G47.33 Obstructive sleep apnea (adult) (pediatric); I10 Essential (primary) hypertension; Z79.899 Other long term (current) drug therapy; X58.XXXA Exposure to other specified factors, initial encounter; Z87.891 Personal history of nicotine dependence; F10.11 Alcohol abuse, in remission; I26.99 Other pulmonary embolism without acute cor pulmonale; I77.810 Thoracic aortic ectasia; E78.5 Hyperlipidemia, unspecified

== ENCOUNTER 2025-04-06 07:24 | Inpatient (IN) ==
[2025-04-06] MEDS: SODIUM CHLORIDE 0.9% 1,000 ML IV ONE (07:30)
[2025-04-06] MEDS: ADENOSINE IV SOLN 3 MG/ML 2 ML VIAL IV ONE ×2 (07:38→07:42)
[2025-04-06] MEDS ORDERED: STAT IV Infusion **Titration per Protocol STA (08:02)
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
[2025-04-06] MEDS: ADENOSINE IV SOLN 3 MG/ML 2 ML VIAL IV STA ×2 (08:05)
[2025-04-06 08:53] LABS: Hematocrit (blood only) 45.5 % (42.0-52.0); Hemoglobin 16.3 g/dl (14.0-18.0); Immature Granulocytes # (auto) 0.02 K/uL (0.01-0.20); Immature Granulocytes % (auto) 0.3 %; Mean Corpuscular Hemoglobin 29.5 pg (25.0-34.0); Mean Corpuscular Volume 82.3 fL (80.0-100.0); Platelet Count 232 K/uL (130-400); RDW Standard Deviation 36.4 fL (36.4-46.3); Red Blood Count 5.53 M/uL (4.70-6.10); White Blood Count 6.10 K/ul (4.8-10.8)
[2025-04-06 08:57] LABS: INR 1.6 (0.9-1.1); Prothrombin Time 16.5 Seconds (9.0-12.0)
[2025-04-06 09:25] LABS: Thyroid Stimulating Hormone 1.337 uIu/ml (0.300-4.500)
[2025-04-06 09:26] LABS: Anion Gap 15.0 (3-11); Bilirubin,Total 0.4 mg/dl (0.2-1.0); Calcium 10.3 mg/dl (8.6-10.3); Carbon Dioxide 24.0 mmol/L (21-32); Chloride 97.0 mmol/L (98-107); Magnesium 2.1 mg/dl (1.7-2.4); Potassium 4.0 mmol/L (3.5-5.1); Sodium 136.0 mmol/L (136-145)
[2025-04-06 09:38] LABS: Alanine Aminotransferase 30.0 U/L (7-52); Albumin Globulin Ratio 1.8 (0.9-2); Alkaline Phosphatase 88.0 U/L (34-104); Blood Urea Nitrogen 26.0 mg/dl (6-23); Creatinine Clr Calc Pharmacy 92.7 ml/min; Globulin 2.7 gm/dl (2.5-4.0); Glucose 335.0 mg/dl (70-99(Fasting)); Total Protein 7.5 gm/dl (6.0-8.3)
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
[2025-04-06] MEDS ORDERED: DEXTROSE 50% 50 ML SYRINGE IV PRN (11:31)
[2025-04-06] MEDS ORDERED: FAMOTIDINE 20 MG TAB PO PRN (11:31)
[2025-04-06] MEDS ORDERED: GLUCAGON FOR INJ 1 MG VIAL SQ PRN (11:31)
[2025-04-06] MEDS ORDERED: CARBOHYDRATES FOR HYPOGLYCEMIA PO PRN (11:31)
[2025-04-06] MEDS ORDERED: ALUMINUM/MAGNESIUM SUSP 30 ML UDC PO PRN (11:31)
[2025-04-06] MEDS ORDERED: POLYETHYLENE (MIRALAX) 17 GM PACK PO PRN (11:31)
[2025-04-06] MEDS ORDERED: LORazepam 0.5 MG TAB PO PRN (11:31)
[2025-04-06] MEDS ORDERED: GLUCOSE 10 TAB/TUBE PO PRN (11:31)
[2025-04-06] MEDS ORDERED: ONDANSETRON INJ 2 MG/ML 2 ML VIAL IV PRN (11:31)
[2025-04-06] MEDS ORDERED: ACETAMINOPHEN 325 MG TAB PO PRN (11:31)
[2025-04-06] MEDS ORDERED: GLUCOSE 40% GEL 15 GM TUBE PO PRN (11:31)
[2025-04-06] MEDS ORDERED: MELATONIN 3 MG TAB PO PRN (11:31)
--- NOTE | 2025-04-06 11:36 | XRay Report ---
EXAM: Radiograph of the Chest 1 View INDICATION: Dyspnea. Sternal pain. TECHNIQUE: Frontal view of the chest. COMPARISON: CT chest 04/04/2025 FINDINGS: Lungs and pleural spaces: No consolidation or pulmonary edema. No pleural effusion or pneumothorax. Heart: Shape and configuration within normal limits allowing for technique. Mediastinum: Normal contour. Bones/joints: Degenerative changes noted throughout the spine. No acute osseous abnormality seen. Soft tissues: No abnormality noted. No radiopaque foreign body noted. Upper abdomen: No abnormality noted. IMPRESSION: No acute cardiopulmonary disease. ACT 112: N/A Electronically signed by Beronica Giles 04-06-2025 11:36 AM
[2025-04-06] MEDS: HEPARIN 25000 UNIT/500 ML D5W 25,000 UNITS/500 ML BAG IV SCH (11:52)
[2025-04-06] MEDS: Heparin IV Adult Wt-Based Standard *NO* INITIAL Bolus Protocol IV STA (11:52)
[2025-04-06] MEDS: LANTUS PER UNIT CHARGE SQ STA (13:12)
[2025-04-06] MEDS: INSULIN ASPART PER UNIT CHARGE SC SCH (13:13)
[2025-04-06] MEDS: METOPROLOL TARTRATE 25 MG TAB PO SCH ×2 (13:13→16:10)
--- NOTE | 2025-04-06 13:36 | Cardiology Consultation ---
Date of Consultation April 06, 2025 Assessment & Plan (1) New onset a-fib: (2) Atrial fibrillation with rapid ventricular response: (3) Uncontrolled hypertension: (4) Chronic alcohol use: (5) Sleep apnea in adult: (6) Hepatic steatosis: Plan 55-year-old male patient with longstanding hypertension, chronic alcohol use/abuse, severe untreated obstructive sleep apnea, and family history of atrial fibrillation admitted with new onset symptomatic atrial fibrillation with a rapid ventricular response. Patient chronically prescribed Coumadin anticoagulation due to history of prior pulmonary embolism, unfortunately with subtherapeutic INR on presentation (INR 1.6). Eliquis became cost prohibitive following 's fdc. Heart rates improved, currently acceptably controlled, patient comfortable. Recommendations: * Continue IV diltiazem for now, weaning as able * Increase beta-irlanda therapy, metoprolol tartrate 25 mg QID (Prior to arrival beta-irlanda was metoprolol succinate 50 mg/day) * Agree with IV Heparin, bridging back to therapeutic INR (2.0 to 3.0) * Ultrasound right upper quadrant, rule out cirrhosis * NPO after midnight for now. * Discontinue alcohol advised. * Revisit sleep apnea treatment. * Outpatient Lexiscan nuclear stress testing and Electrophysiology Consultation Supervising Physician Co-Signing Physician Notes I have personally performed a history and physical examination on the patient. I have reviewed the advance practitioner's documentation, and I agree with, and take responsibility for the plan of care. 55-year-old male presents with atrial fibrillation and rapid ventricular response. Atrial fibrillation possibly related to excessive alcohol intake "holiday heart". Currently rate controlled with beta-irlanda and IV diltiazem infusion at 15 mg/h. Chronically anticoagulated due to history of pulmonary embolus, however, subtherapeutic INR noted on admission. Outpatient metoprolol dose 50 mg/day. Recommendations: * Titrate metoprolol to 25 mg every 6 hours. * Continue IV diltiazem infusion to maintain heart rate less than 110 bpm. * Continue IV heparin at this time. * N.p.o. except medications after midnight. * Consider transesophageal echo guided cardioversion tomorrow pending reassessment. I spent a total of 40 minutes on the date of service in preparation, delivery, and documentation of the care provided to this patient, excluding any time spent in the performance of separately billed services. Cheo Perry DO, [facility] History of Present Illness Reason for Consultation: Atrial fibrillation with a rapid ventricular response Requesting Physician: [facility] Hospitalist Service, Kaylee So [facility] MD History of Present Illness Patient is a 55-year-old male who is being [facility] Reason for consultation is atrial fibrillation with a rapid ventricular response. Patient notes new onset tachypalpitations initially observed night while out on the porch having a few mixed drinks. He describes having mild palpitations, fluttering type sensation, with a noticeable change in his breathing, inability to get a deep breath. Notes feeling somewhat agitated "like a different kind of anxiety." Notes drinking shots of Southern comfort in an attempt to improve anxiety symptoms eventually going to bed. Monday patient awoke from a nap at 12:26 with recurrent palpitations. He called the [facility] Triage Nurse and was advised to go to the ER. On the way to the ER his symptoms resolved. Workup in the ER was benign, EKG revealing sinus tachycardia with a ventricular rate of 104 bpm. Patient discharged from the ER, returning home without difficulty. This morning around 445 patient awoke with recurrent palpitations, worse than previously, along with tightness just left of the sternum, ultimately presenting to the ER where EKG revealed atrial fibrillation with a rapid ventricular response (169 bpm) with inferior and lateral STT wave abnormality. Patient received 6 and 12 mg of adenosine in the ER with slowing of the rate, identifying atrial fibrillation with a rapid ventricular response. Thereafter patient received Cardizem bolus with drip initiated (currently at 15 mg/hr). IV heparin prescribed noting subtherapeutic INR (1.6) Patient notes improvement in presenting symptoms, remaining in atrial fibrillation with ventricular rates in the 90s at present. No further chest tightness. Patient denies prior cardiac history. He specifically denies history of CAD, SC, CHF, heart murmur, arrhythmia, rheumatic fever, or scarlet fever Past Medical and Surgical History: History of pulmonary embolism. DOAC cost prohibitive, chronically prescribed warfarin anticoagulation Untreated obstructive sleep apnea Hypertension Aortic root enlargement Dyslipidemia Obesity Gout Neuropathy, possible alcohol induced Depression and anxiety Irritable bowel syndrome Carpal tunnel Colonoscopy with polypectomy Left elbow tendinopathy repair Right hand surgery Family History: Father with colon cancer. Mother with PE. Social History: Chronic significant alcohol intake. Reformed smoker, quitting in 1999 after smoking x 12 years. No illegal drug use. (Thea). One child. 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 Allergies Allergy/AdvReac Type Severity Reaction Status Date / Time No Known Allergies Allergy Verified 04/04/25 17:32 Home Medications Medication Instructions Recorded Confirmed Type cholecalciferol (vitamin D3) 25 1,000 unit PO DAILY 01/28/19 04/06/25 History mcg (1,000 unit) capsule (Vitamin D3) allopurinol 100 mg tablet 100 mg PO BID 03/27/23 04/06/25 History lisinopril 20 2 tab PO QAM 05/05/23 04/06/25 History mg-hydrochlorothiazide 12.5 mg tablet acetaminophen 325 mg tablet 650 mg PO Q6H PRN Pain 01/17/24 04/06/25 History (Tylenol) lorazepam 1 mg tablet 0.5 mg PO Q8H PRN Anxiety 01/17/24 04/06/25 History amlodipine 2.5 mg tablet 2.5 mg PO QAM 04/04/25 04/06/25 History magnesium 250 mg tablet 250 mg PO QAM 04/04/25 04/06/25 History metoprolol succinate 50 mg 50 mg PO QAM 04/04/25 04/06/25 History tablet,extended release 24 hr warfarin 5 mg tablet 5 mg PO SUMOWETHFR@1600 04/04/25 04/06/25 History warfarin 5 mg tablet 10 mg PO TUSA@1600 04/04/25 04/06/25 History Patient History Medical History Hx of pulmonary embolus T2DM (type 2 diabetes mellitus) Cellulitis of left knee GERD (gastroesophageal reflux disease) hypergastrocolic reflux Depression Sleep apnea has since lost 45 lbs - no problems now. 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 History of carpal tunnel release right History of colonoscopy Family History Other No family history of adverse response to anesthesia No pertinent family history in first degree relatives Social History Smoking Status: Former smoker Tobacco Type: Cigarettes Cigarettes Per Day: 1 ppd x 14 years; Second Hand Exposure: No; Do You Dip or Chew Tobacco: No (quit chew tobacco 10/2014); Hx Alcohol Use: Yes Alcohol type: beer and hard liquor Hx Substance Use: No Preferred Language: Chinese Communication Ability: Effective Chemical Engineering Technician Required: No Beliefs That Will Affect Care: None Current Living Situation: Spouse Feels Safe at Home: Yes Assistive Devices: Cane and Glasses Review of Systems Review of Systems: Complete review of systems is otherwise as stated above, negative, or noncontributory Physical Exam Physical Exam: at bedside General: A&Ox3. NAD. HENT: Normocephalic. Atraumatic. Eyes: PER. Conjunctiva pink, sclera clear. Neck: No carotid bruits. No JVD. No HJR. Heart: Irregularly irregular at 90 bpm. No murmur. No rub. Lungs: Diminished. Decreased. No rales. No wheeze. Abdomen: Obese. +BS. Soft. Nontender. No masses or organomegaly. Extremities: No clubbing, cyanosis, or significant edema. Limited neurological examination is without focal deficits. Pulses: radial=2/4, posterior tibial=1/4. Results & Data Vital Signs (Past 12 Hours) Vital Signs Temp Pulse Pulse Resp BP BP Pulse Ox 04/06/25 11:15 36.4 C L 88 20 150/97 H 96 04/06/25 10:21 103 H 16 97 04/06/25 10:12 111 H 20 97 04/06/25 10:03 116 H 17 97 04/06/25 10:00 145/95 H 04/06/25 09:33 111 H 14 93 04/06/25 09:30 137/104 H 04/06/25 09:24 122 H 20 96 04/06/25 09:02 129/95 04/06/25 08:57 108 H 13 95 04/06/25 08:51 116 H 19 93 04/06/25 08:48 125 H 14 96 04/06/25 08:33 106 H 21 96 04/06/25 08:30 148/109 H 04/06/25 08:24 111 H 17 97 04/06/25 08:12 105 H 23 97 04/06/25 08:03 100 H 14 86 L 04/06/25 08:01 126/82 04/06/25 07:54 147/124 H 04/06/25 07:45 135/115 H 04/06/25 07:44 174 H 04/06/25 07:42 121/88 04/06/25 07:36 175/129 H 04/06/25 07:28 36.6 C 154 H 20 112/80 96 O2 Del Method O2 Flow Rate 04/06/25 11:15 Room Air 04/06/25 10:21 04/06/25 10:12 04/06/25 10:03 04/06/25 10:00 04/06/25 09:33 Nasal Cannula 2 04/06/25 09:30 04/06/25 09:24 Nasal Cannula 2 04/06/25 09:02 04/06/25 08:57 Nasal Cannula 2 04/06/25 08:51 04/06/25 08:48 04/06/25 08:33 Nasal Cannula 2 04/06/25 08:30 04/06/25 08:24 Nasal Cannula 2 04/06/25 08:12 Nasal Cannula 2 04/06/25 08:03 Room Air 04/06/25 08:01 04/06/25 07:54 04/06/25 07:45 04/06/25 07:44 04/06/25 07:42 04/06/25 07:36 04/06/25 07:28 Room Air Laboratory Results Cardiac Enzymes 04/06/25 Range/Units 07:35 AST 21 (13-39) U/L Troponin I High Sens 8.5 (0-20) pg/ml Coagulation 04/06/25 Range/Units 07:35 PT 16.5 H (9.0-12.0) Seconds CBC 04/06/25 Range/Units 07:35 WBC 6.10 (4.8-10.8) K/ul RBC 5.53 (4.70-6.10) M/uL Hgb 16.3 (14.0-18.0) g/dl Hct 45.5 (42.0-52.0) % Plt Count 232 (130-400) K/uL Neut # (Auto) 3.41 (1.40-6.50) K/uL Lymph # (Auto) 1.95 (1.20-3.40) K/uL [place] # (Auto) 0.59 (0.11-0.59) K/uL Eos # (Auto) 0.10 (0.00-0.50) K/uL Baso # (Auto) 0.03 (0.00-0.20) K/uL Comprehensive Metabolic Panel 04/06/25 Range/Units 07:35 Sodium 136 (136-145) mmol/L Potassium 4.0 (3.5-5.1) mmol/L Chloride 97 L (98-107) mmol/L Carbon Dioxide 24 (21-32) mmol/L BUN 26 H (6-23) mg/dl Creatinine 1.18 (0.6-1.4) mg/dl Glucose 335 H* (70-99(Fasting)) mg/dl Calcium 10.3 (8.6-10.3) mg/dl AST 21 (13-39) U/L ALT 30 (7-52) U/L Alkaline Phosphatase 88 (34-104) U/L Total Protein 7.5 (6.0-8.3) gm/dl Albumin 4.8 (3.4-5.0) gm/dl Intake and Output 04/05/25 04/06/25 04/06/25 22:59 06:59 14:59 Intake Total 1015.333 / 1015.333 Balance 1015.333 / 1015.333 Intake: IV 1015.333 / 1015.333 Sodium Chloride 0.9% 1,000 ml @ 1000 / 1000 999 mls/hr IV .Q1H1M ONE Rx#: [id number] dilTIAZem HCL 125 mg In 15.333 / 15.333 Dextrose 5% 100 ml @ 5 MG/HR 5 mls/hr IV .Q24H [facility] Rx#: [id number] Other: Weight 119 kg Weight Measurement Method Built in [facility] Patient Weight 04/07/25 06:59 Weight 119 kg PG Care Time/CCT Total # of Minutes Spent Total Time Spent with Patient: Time spent evaluating patient, direct bedside care, interpretation of diagnostic studies, chart review, placing orders, discussion with other providers and/or family members, etc: 86 minutes Total time spent is greater than 50% in coordination of care (as documented) at patient's floor/unit and/or counseling patient. Coding Level of Care Code 68530 IN/OBS CONSULT LVL 5,80M Diagnoses New onset a-fib I48.91 Atrial fibrillation with rapid ventricular response I48.91 Uncontrolled hypertension I10 Chronic alcohol use F10.90 Sleep apnea in adult G47.30 Hepatic steatosis K76.0
[2025-04-06 13:51] LABS: Partial Thromboplastin Time 32 Seconds (21-31)
[2025-04-06] MEDS: WARFARIN SOD 10 MG TAB PO ONE (16:10)
[2025-04-06] MEDS ORDERED: PHARMACY GLYCEMIC MGMT CONSULT PRN (16:56)
[2025-04-06] MEDS: INSULIN HUMAN REGULAR PER UNIT 10 UNITS in SYRINGE 9.9 ML IV ONE (17:52)
[2025-04-06 19:01] LABS: ANTI-Xa, UFH(UnfractionatedHep 0.30 IU/ml (0.3-0.7)
[2025-04-06] MEDS: LANTUS PER UNIT CHARGE SC SCH (22:31)
--- NOTE | 2025-04-06 23:04 | Ultrasound Report ---
Exam(s): US LIVER EXAM: US Abdomen Limited CLINICAL HISTORY: Reason for exam: alcohol use. rule our cirrhosis. TECHNIQUE: Real-time ultrasound of the abdomen with image documentation. COMPARISON: No relevant prior studies available. FINDINGS: Liver: Hepatomegaly measuring 23 cm with diffusely increased echogenicity suggesting steatosis. No obvious liver surface nodularity to indicate cirrhosis. Hepatic vasculature suboptimally characterized. Gallbladder: Gallbladder distention with stone at the gallbladder neck. No gallbladder wall thickening. Common bile duct: Common bile duct measures 9.6 mm, enlarged for patient age. Pancreas: Pancreas suboptimally visualized. Kidneys: Unremarkable. Right kidney measures 9.9 cm. No hydronephrosis. IMPRESSION: 1. No obvious liver surface nodularity to indicate cirrhosis. 2. Hepatomegaly measuring 23 cm with diffusely increased echogenicity suggesting steatosis. 3. Common bile duct measures 9.6 mm, enlarged for patient age. If there is laboratory evidence of biliary obstruction, consider MRCP. 4. Gallbladder distention with stone at the gallbladder neck. No gallbladder wall thickening. Electronically signed by: Eleanor Rodríguez M.D. 04/06/25 23:03 PM
[2025-04-07] MEDS: INSULIN ASPART PER UNIT CHARGE SC SCH ×2 (00:47→08:31)
[2025-04-07 07:44] LABS: Alanine Aminotransferase 24 U/L (7-52); Albumin Globulin Ratio 1.4 (0.9-2); Alkaline Phosphatase 71 U/L (34-104); Anion Gap 14 (3-11); Bilirubin,Total 0.4 mg/dl (0.2-1.0); Blood Urea Nitrogen 20 mg/dl (6-23); Calcium 8.9 mg/dl (8.6-10.3); Carbon Dioxide 23 mmol/L (21-32); Chloride 99 mmol/L (98-107); Creatinine Clr Calc Pharmacy 94.5 ml/min; Globulin 3.0 gm/dl (2.5-4.0); Glucose 291 mg/dl (70-99(Fasting)); INR 2.1 (0.9-1.1); Magnesium 2.0 mg/dl (1.7-2.4); Prothrombin Time 21.3 Seconds (9.0-12.0); Sodium 136 mmol/L (136-145); Total Protein 7.2 gm/dl (6.0-8.3)
[2025-04-07 07:46] LABS: Hematocrit (blood only) 42.7 % (42.0-52.0); Hemoglobin 15.4 g/dl (14.0-18.0); Mean Corpuscular Hemoglobin 29.8 pg (25.0-34.0); Mean Corpuscular Volume 82.0 fL (80.0-100.0); Platelet Count 217 K/uL (130-400); RDW Standard Deviation 36.6 fL (36.4-46.3); Red Blood Count 5.21 M/uL (4.70-6.10); White Blood Count 6.44 K/ul (4.8-10.8)
[2025-04-07 07:53] LABS: Immature Granulocytes # (auto) 0.03 K/uL (0.01-0.20); Immature Granulocytes % (auto) 0.5 %; Polychromasia 1+
[2025-04-07 08:07] LABS: ANTI-Xa, UFH(UnfractionatedHep 0.33 IU/ml (0.3-0.7)
[2025-04-07 08:08] LABS: Hemoglobin A1C 9.0 % (4.5-5.6)
--- NOTE | 2025-04-07 08:13 | Electrocardiogram Report ---
Test Reason : Blood Pressure : */* mmHG Vent. Rate : 66 BPM Atrial Rate : * BPM P-R Int : * ms QRS Dur : 84 ms QT Int : 380 ms P-R-T Axes : * 38 66 degrees QTcB Int : 398 ms Atrial fibrillation Septal infarct , age undetermined Abnormal ECG When compared with ECG of 06-Apr-2025 07:53, (unconfirmed) Vent. rate has decreased by 64 bpm Confirmed by Allison Key ([id number]) on 04/07/2025 8:12:58 AM Referred By: REFERRED SELF Confirmed By: Allison Key
[2025-04-07] MEDS: LANTUS PER UNIT CHARGE SC ONE (08:31)
[2025-04-07] MEDS: LISINOPRIL/HCTZ 20/12.5MG 1 TAB TAB PO SCH (08:32)
[2025-04-07] MEDS: MAGNESIUM OXIDE 400 MG TAB PO SCH (08:32)
[2025-04-07] MEDS: CHOLECALCIFEROL 25 MCG (1000 UNITS) TAB PO SCH (08:33)
[2025-04-07] MEDS: FOLIC ACID 1 MG TAB PO SCH (08:33)
[2025-04-07] MEDS: THIAMINE HCL 100 MG TAB PO SCH (08:33)
[2025-04-07 10:29] LABS: Potassium 3.8 mmol/L (3.5-5.1)
--- NOTE | 2025-04-07 10:52 | Electrocardiogram Report ---
Test Reason : Blood Pressure : */* mmHG Vent. Rate : 130 BPM Atrial Rate : * BPM P-R Int : * ms QRS Dur : 92 ms QT Int : 278 ms P-R-T Axes : * 51 47 degrees QTcB Int : 409 ms Atrial fibrillation with rapid ventricular response Abnormal ECG When compared with ECG of 06-Apr-2025 07:48, (unconfirmed) No significant change was found Confirmed by Javon Sorto ([id number]) on 04/07/2025 10:51:59 AM Referred By: REFERRED SELF Confirmed By: Javon Sorto
[2025-04-07] MEDS ORDERED: LIDOCAINE 2% 20 MG/ML 5 ML SYR IV ONE (11:02)
[2025-04-07] MEDS ORDERED: MIDAZOLAM HCL 1 MG/ML 2ML VIAL ONE (11:02)
[2025-04-07] MEDS ORDERED: PROPOFOL IV EMULSION 10 MG/ML 20 ML VIAL IV ONE (11:02)
[2025-04-07] MEDS ORDERED: KETAMINE HCL 10MG/ML SYR ONE (11:02)
[2025-04-07] MEDS ORDERED: ONDANSETRON INJ 2 MG/ML 2 ML VIAL ONE (11:03)
--- NOTE | 2025-04-07 11:05 | Anesthesiology Consultation ---
Date of Service April 07, 2025 Assessment & Plan (1) Encounter for pre-operative examination: Chart Review Chart Review: Acceptable Risk for Surgery History Height/Weight Height: 6 ft Weight: 120.5 kg Allergies Allergy/AdvReac Type Severity Reaction Status Date / Time No Known Allergies Allergy Verified 04/04/25 17:32 Medications Home Medications Medication Instructions Recorded Confirmed Last Taken cholecalciferol (vitamin D3) 25 1,000 unit PO DAILY 01/28/19 04/06/25 04/06/25 mcg (1,000 unit) capsule (Vitamin D3) allopurinol 100 mg tablet 100 mg PO BID 03/27/23 04/06/25 04/06/25 lisinopril 20 2 tab PO QAM 05/05/23 04/06/25 04/06/25 mg-hydrochlorothiazide 12.5 mg tablet acetaminophen 325 mg tablet 650 mg PO Q6H PRN Pain 01/17/24 04/06/25 Unknown (Tylenol) lorazepam 1 mg tablet 0.5 mg PO Q8H PRN Anxiety 01/17/24 04/06/25 04/05/25 amlodipine 2.5 mg tablet 2.5 mg PO QAM 04/04/25 04/06/25 04/06/25 magnesium 250 mg tablet 250 mg PO QAM 04/04/25 04/06/25 04/06/25 metoprolol succinate 50 mg 50 mg PO QAM 04/04/25 04/06/25 04/06/25 tablet,extended release 24 hr warfarin 5 mg tablet 5 mg PO SUMOWETHFR@1600 04/04/25 04/06/25 04/04/25 warfarin 5 mg tablet 10 mg PO TUSA@1600 04/04/25 04/06/25 04/05/25 Active Medications Generic Name Dose Route Start Last Admin Trade Name Freq PRN Reason Stop Dose Admin Allopurinol 100 mg 04/06/25 21:00 04/07/25 08:32 Allopurinol 100 Mg Tab PO 05/06/25 20:59 100 mg BID ANASTACIO Administration Folic Acid 1 mg 04/07/25 09:00 04/07/25 08:33 Folic Acid 1 Mg Tab PO 05/07/25 08:59 1 mg QAM ANASTACIO Administration Lisinopril/HCTZ 2 tab 04/07/25 09:00 04/07/25 08:32 Lisinopril/Hctz 20/12.5mg 1 Tab Tab PO 05/07/25 08:59 2 tab QAM ANASTACIO Administration Diltiazem HCl 125 mg/ Dextrose 125 mls @ 5 mls/hr 04/06/25 08:15 04/07/25 08:30 IV 05/06/25 08:14 0 mg/hr .Q24H ANASTACIO 0 mls/hr Titration Protocol 5 MG/HR Insulin Aspart 0 units 04/07/25 08:00 04/07/25 08:31 Insulin Aspart Per Unit Charge SC 05/07/25 07:59 7 units Q4 ANASTACIO Administration Magnesium Oxide 400 mg 04/07/25 09:00 04/07/25 08:32 Magnesium Oxide 400 Mg Tab PO 05/07/25 08:59 400 mg QAM ANASTACIO Administration Metoprolol Tartrate 25 mg 04/06/25 17:00 04/07/25 08:33 Metoprolol Tartrate 25 Mg Tab PO 05/06/25 16:59 25 mg QID ANASTACIO Administration Thiamine HCl 100 mg 04/07/25 09:00 04/07/25 08:33 Thiamine Hcl 100 Mg Tab PO 05/07/25 08:59 100 mg QAM ANASTACIO Administration Vitamin D 25 mcg 04/07/25 09:00 04/07/25 08:33 Cholecalciferol 25 Mcg (1000 Units) Tab PO 05/07/25 08:59 25 mcg DAILY ANASTACIO Administration Past Medical History Medical History (Updated 04/07/25 @ 11:03 by Koffi Guerin MD) Hypertension Hepatic steatosis Atrial fibrillation with rapid ventricular response Chronic alcohol use Hx of pulmonary embolus T2DM (type 2 diabetes mellitus) Cellulitis of left knee GERD (gastroesophageal reflux disease) hypergastrocolic reflux Depression Sleep apnea has since lost 45 lbs - no problems now. 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 Hx Substance Use: No substance use type: does not use Physical Exam Vital Signs Last Vital Signs Temp 36.4 C L 04/07/25 10:53 Pulse 73 04/07/25 10:53 Resp 16 04/07/25 10:53 BP 123/83 04/07/25 10:53 Pulse Ox 96 04/07/25 10:53 O2 Del Method Room Air 04/07/25 10:53 O2 Flow Rate 2 04/06/25 09:33 Testing Laboratory Results 04/07/25 05:58 04/07/25 09:54 PT 21.3 Seconds (9.0-12.0) H 04/07/25 05:58 INR 2.1 (0.9-1.1) H 04/07/25 05:58 APTT 32 Seconds (21-31) H 04/06/25 12:55 Hemoglobin A1c 9.0 % (4.5-5.6) H 04/07/25 05:58 04/07/25 04/07/25 04/07/25 08:30 06:19 04:03 POC Glucose 273 H 366 H* 307 H* 04/07/25 04/07/25 00:26 00:22 POC Glucose 414 H* 417 H* Electrocardiogram Date: 04/07/25 Findings: + AFIB @ (66) Echocardiogram Date: 04/06/25 EF: 60-65% LV Function: normal Other Findings: + LVH (mild) Valvular Disease: + no significant valvular disease
--- NOTE | 2025-04-07 11:10 | Electrocardiogram Report ---
Test Reason : Blood Pressure : */* mmHG Vent. Rate : 162 BPM Atrial Rate : * BPM P-R Int : * ms QRS Dur : 84 ms QT Int : 284 ms P-R-T Axes : * 55 18 degrees QTcB Int : 466 ms Atrial fibrillation with rapid ventricular response Abnormal ECG When compared with ECG of 06-Apr-2025 07:33, (unconfirmed) No significant change was found Confirmed by Javon Sorto ([id number]) on 04/07/2025 10:51:53 AM Referred By: REFERRED SELF Confirmed By: Javon Sorto
--- NOTE | 2025-04-07 11:10 | Electrocardiogram Report ---
Test Reason : Blood Pressure : */* mmHG Vent. Rate : 169 BPM Atrial Rate : * BPM P-R Int : * ms QRS Dur : 86 ms QT Int : 262 ms P-R-T Axes : * 43 43 degrees QTcB Int : 439 ms Atrial fibrillation with rapid ventricular response Abnormal ECG When compared with ECG of 04-Apr-2025 15:01, (unconfirmed) Atrial fibrillation has replaced Sinus rhythm Vent. rate has increased by 65 bpm Criteria for Inferior infarct are no longer Present T wave inversion no longer evident in Inferior leads Confirmed by Javon Sorto ([id number]) on 04/07/2025 10:51:47 AM Referred By: REFERRED SELF Confirmed By: Javon Sorto
[2025-04-07] MEDS: BENZOCAINE/TETRACAIN/BUTAM 50 APPLN/5 GM CAN EXT ONE (13:02)
--- NOTE | 2025-04-07 13:07 | Anesthesiology Progress Note ---
Date of Service April 07, 2025 Anesthesia Post Procedure Vital Signs Vital Signs: Temp Pulse Pulse Pulse Resp BP BP 04/07/25 12:59 36.6 C 71 138/80 04/07/25 12:27 95 H 15 118/74 04/07/25 11:21 75 16 146/101 H 04/07/25 10:53 36.4 C L 73 16 123/83 04/07/25 08:00 77 04/07/25 07:04 36.4 C L 80 14 122/82 04/07/25 03:02 36.9 C 64 18 115/78 04/07/25 02:43 79 04/06/25 23:07 36.6 C 76 19 124/85 04/06/25 20:00 04/06/25 19:40 36.9 C 66 18 113/75 04/06/25 16:19 36.9 C 18 112/73 Pulse Ox O2 Del Method 04/07/25 12:59 98 Room Air 04/07/25 12:27 97 Room Air 04/07/25 11:21 90 Room Air 04/07/25 10:53 96 Room Air 04/07/25 08:00 04/07/25 07:04 91 Room Air 04/07/25 03:02 94 Room Air 04/07/25 02:43 04/06/25 23:07 95 Room Air 04/06/25 20:00 Room Air 04/06/25 19:40 93 Room Air 04/06/25 16:19 93 Room Air Transfer of Care Handoff Completed per policy Notes Mental Status: alert / awake / arousable Patient Amnestic to Procedure: Yes Nausea / Vomiting: adequately controlled Pain: adequately controlled Airway Patency, RR, SpO2: stable & adequate BP & HR: stable & adequate Hydration State: stable & adequate Anesthetic Complications: no major complications apparent
--- NOTE | 2025-04-07 13:30 | Cardiology Progress Note ---
Date of Service April 07, 2025 Assessment & Plan (1) New onset a-fib: (2) Atrial fibrillation with rapid ventricular response: (3) Uncontrolled hypertension: (4) Chronic alcohol use: (5) Sleep apnea in adult: (6) Hepatic steatosis: Plan 55-year-old male patient with longstanding hypertension, chronic alcohol use/abuse, severe untreated obstructive sleep apnea, and family history of atrial fibrillation admitted with new onset symptomatic atrial fibrillation with a rapid ventricular response. Patient chronically prescribed Coumadin anticoagulation due to history of prior pulmonary embolism, unfortunately with subtherapeutic INR on presentation (INR 1.6). Eliquis became cost prohibitive. Heart rate currently controlled with IV diltiazem infusion and oral metoprolol. Risk, benefit, terms to transesophageal echo guided cardioversion discussed. Recommendations: * Patient agreeable to transesophageal echo guided cardioversion. * Continue IV diltiazem * Continue beta-irlanda therapy, metoprolol tartrate 25 mg QID (Prior to arrival beta-irlanda was metoprolol succinate 50 mg/day) * Discontinue IV heparin. * Discontinue alcohol advised. * Revisit sleep apnea treatment. * Outpatient Lexiscan nuclear stress testing and Electrophysiology Consultation Cheo Perry DO, [facility] Addendum: Transesophageal echocardiogram performed without complication. Evidence of left atrial spontaneous contrast as well as small strand-like echodensity near the left atrial appendage suggesting possible thrombus. Cardioversion was not performed. Recommend discontinuation of IV diltiazem. Begin oral diltiazem 60 mg 3 times daily. Continue warfarin for goal INR of 2.0-3.0. Assess weekly INRs as outpatient with plans for external direct- current cardioversion after 4 weeks of adequate anticoagulation. Admission and Anticipated Discharge Date Admission Date: April 06, 2025 Subjective 55-year-old male seen and examined at bedside. Remains in atrial fibrillation overnight. Heart rate controlled with oral metoprolol and IV diltiazem infusion. INR this morning is therapeutic. Denies palpitations currently. Review of Systems Review of Systems: All systems reviewed & are unremarkable except as noted in Subjective Physical Exam Constitutional: well nourished; no acute distress Respiratory: no respiratory distress, no labored breathing and no retractions Auscultation: no crackles, no rales, no rhonchi and no wheezes Cardiovascular: Rate/Rhythm: regular rate and regular rhythm Heart Sounds: normal S1 and normal S2; no murmur Vessels: no JVD and no carotid bruit Extremities: no edema Gastrointestinal (Abdomen): Inspection/Auscultation: abdomen normal to inspection and normal bowel sounds; abdomen not distended Percussion/P alpation: abdomen soft; abdomen nontender, no guarding and abdomen not rigid Neurologic: CN's II-XI intact bilaterally and moves all extremities Results & Data Vital Signs (Past 12 Hours) Vital Signs Temp Pulse Pulse Pulse Resp BP BP 04/07/25 12:59 36.6 C 71 138/80 04/07/25 12:27 95 H 15 118/74 04/07/25 11:21 75 16 146/101 H 04/07/25 10:53 36.4 C L 73 16 123/83 04/07/25 08:00 77 04/07/25 07:04 36.4 C L 80 14 122/82 04/07/25 03:02 36.9 C 64 18 115/78 04/07/25 02:43 79 Pulse Ox O2 Del Method 04/07/25 12:59 98 Room Air 04/07/25 12:27 97 Room Air 04/07/25 11:21 90 Room Air 04/07/25 10:53 96 Room Air 04/07/25 08:00 04/07/25 07:04 91 Room Air 04/07/25 03:02 94 Room Air 04/07/25 02:43 Laboratory Results Cardiac Enzymes 04/06/25 04/06/25 04/07/25 Range/Units 12:55 18:00 05:58 AST TNP Troponin I High Sens 6.2 9.9 (0-20) pg/ml 04/07/25 04/07/25 Range/Units 08:29 09:54 AST TNP 15 Troponin I High Sens (0-20) pg/ml Coagulation 04/06/25 04/07/25 Range/Units 12:55 05:58 PT 21.3 H (9.0-12.0) Seconds APTT 32 H (21-31) Seconds CBC 04/07/25 Range/Units 05:58 WBC 6.44 (4.8-10.8) K/ul RBC 5.21 (4.70-6.10) M/uL Hgb 15.4 (14.0-18.0) g/dl Hct 42.7 (42.0-52.0) % Plt Count 217 (130-400) K/uL Neut # (Auto) 3.92 (1.40-6.50) K/uL Lymph # (Auto) 1.87 (1.20-3.40) K/uL [place] # (Auto) 0.45 (0.11-0.59) K/uL Eos # (Auto) 0.14 (0.00-0.50) K/uL Baso # (Auto) 0.03 (0.00-0.20) K/uL Comprehensive Metabolic Panel 04/07/25 04/07/25 04/07/25 Range/Units 05:58 08:29 09:54 Sodium 136 (136-145) mmol/L Potassium TNP TNP 3.8 Chloride 99 (98-107) mmol/L Carbon Dioxide 23 (21-32) mmol/L BUN 20 (6-23) mg/dl Creatinine 1.17 (0.6-1.4) mg/dl Glucose 291 H (70-99(Fasting)) mg/dl Calcium 8.9 (8.6-10.3) mg/dl AST TNP TNP 15 ALT 24 (7-52) U/L Alkaline Phosphatase 71 (34-104) U/L Total Protein 7.2 (6.0-8.3) gm/dl Albumin 4.2 (3.4-5.0) gm/dl Intake and Output 04/06/25 04/07/25 04/07/25 22:59 06:59 14:59 Intake Total 413.166 / 3033.299 254.800 / 3033.299 360.400 / 360.400 Output Total 620 / 970 350 / 970 Balance -206.834 / 2063.299 -95.200 / 2063.299 360.400 / 360.400 Intake: IV 413.166 / 1683.299 254.800 / 1683.299 360.400 / 360.400 Heparin 97203 Unit/500 ml D5w 269.166 / 451.633 182.467 / 451.633 334.900 / 334.900 25,000 units In 500 ml @ 1,700 UNITS/HR 34 mls/hr IV .[id number] [facility] Rx#:[id number] dilTIAZem HCL 125 mg In 144.0 / 231.666 72.333 / 231.666 25.500 / 25.500 Dextrose 5% 100 ml @ 5 MG/HR 5 mls/hr IV .Q24H [facility] Rx#: [id number] Output: Urine 350 / 350 Pleural Fluid 620 / 620 Other: Other Intake Source npo # Unmeasured Voids 1 1 Weight 120.5 kg 120.5 kg Weight Measurement Method Built in [facility] Patient Weight 04/08/25 06:59 Weight 120.5 kg PG Care Time/CCT Total # of Minutes Spent Total Time Spent with Patient: Total time spent is greater than 50% in coordination of care (as documented) at patient's floor/unit and/or counseling patient: C[place] [address] SUB INP/OBS CARE 3/50MIN Patient Type Established History Comprehensive Exam Comprehensive Medical Decision Making High Complexity Diagnoses New onset a-fib I48.91 Atrial fibrillation with rapid ventricular response I48.91 Uncontrolled hypertension I10 Chronic alcohol use F10.90 Sleep apnea in adult G47.30 Hepatic steatosis K76.0
--- NOTE | 2025-04-07 14:23 | Pharmacy Report ---
Pharmacy Glycemic Short Note 2 - Date of Service April 07, 2025 - Glycemic Short BSG Results (Last 24 hours): 04/06/25 04/06/25 04/06/25 16:30 16:31 16:33 Glucose POC Glucose 320 H* 289 H 305 H* 04/06/25 04/07/25 04/07/25 20:13 00:22 00:26 Glucose POC Glucose 219 H 417 H* 414 H* 04/07/25 04/07/25 04/07/25 04:03 05:58 06:19 Glucose 291 H POC Glucose 307 H* 366 H* 04/07/25 04/07/25 08:30 12:58 Glucose POC Glucose 273 H 270 H OUTPATIENT ANTIDIABETIC REGIMEN: * n/a HbA1c: 9% on 04/07/25 ASSESSMENT: * Marvin is a 55 year old male who was admitted last evening with new onset a.fib with RVR and hyperglycemia. Pharmacy was consulted for glycemic management while he is admitted. * BSG on arrival yesterday was 302mg/dL. At that time the provider ordered Lantus 8 units SQ x 1 as well as a bolus insulin regimen with fairly loose parameters. * BSG was still > 300mg/dL at dinner time, so 10 units iv regular insulin were given, the bolus insulin was changed to a weight based dosing with a stress of 2, and an additional 10 units of Lantus was ordered to be given at bedtime. * Fasting BSG was 366mg/dL this morning. Lantus 10 units SQ x 1 was ordered and a Lantus scale (0, 10, or 15 units depending on BSG) was added for HS. Carb ratio was also tightened for better prandial control--Diet was ordered starting at lunch. BSG checks ordered for q 4 hours for now until he is better controlled. PLAN FOR INPATIENT GLYCEMIC CONTROL: * Basal insulin * Lantus 10 units SQ x 1 this morning, then Lantus scale for HS (0, 10 or 15 units depending on BSG) * Will reassess dosing/need tomorrow morning * Bolus insulin * NovoLog per scale ACHS or Q6hrs while NPO * Goal Range: Low 110 mg/dL - High 140 mg/dL * Correction Factor: 20 mg/dL/unit * Nutritional / Prandial insulin per carb ratio of 1 unit per 6 grams CHO consumed
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
[2025-04-07] MEDS: WARFARIN SOD 5 MG TAB PO SCH (17:16)
[2025-04-07 19:16] VITALS: RESP 18
[2025-04-07] MEDS: LANTUS PER UNIT CHARGE SC SCH (20:37)
[2025-04-08 06:13] LABS: Hematocrit (blood only) 44.8 % (42.0-52.0); Hemoglobin 15.9 g/dl (14.0-18.0); Mean Corpuscular Hemoglobin 30.0 pg (25.0-34.0); Mean Corpuscular Volume 84.5 fL (80.0-100.0); Platelet Count 214 K/uL (130-400); RDW Standard Deviation 39.0 fL (36.4-46.3); Red Blood Count 5.30 M/uL (4.70-6.10); White Blood Count 6.73 K/ul (4.8-10.8)
[2025-04-08 06:51] LABS: Anion Gap 12.0 (3-11); Calcium 9.3 mg/dl (8.6-10.3); Carbon Dioxide 28.0 mmol/L (21-32); Chloride 101.0 mmol/L (98-107); Magnesium 2.0 mg/dl (1.7-2.4); Potassium 4.0 mmol/L (3.5-5.1); Sodium 141.0 mmol/L (136-145)
[2025-04-08 06:56] LABS: Blood Urea Nitrogen 16.0 mg/dl (6-23); Creatinine Clr Calc Pharmacy 86.6 ml/min; Glucose 176.0 mg/dl (70-99(Fasting))
[2025-04-08 07:21] LABS: INR 2.1 (0.9-1.1); Prothrombin Time 21.4 Seconds (9.0-12.0)
[2025-04-08] MEDS: LANTUS PER UNIT CHARGE SC SCH (08:58)
[2025-04-08] MEDS: INSULIN ASPART PER UNIT CHARGE SC SCH (08:58)
[2025-04-08] MEDS: METOPROLOL SUCC 50MG EXT REL TAB PO SCH (09:20)
[2025-04-08 10:37] VITALS: TEMP 97.3; O2SAT 96
--- NOTE | 2025-04-08 11:45 | Electrocardiogram Report ---
Test Reason : Blood Pressure : */* mmHG Vent. Rate : 82 BPM Atrial Rate : * BPM P-R Int : * ms QRS Dur : 94 ms QT Int : 368 ms P-R-T Axes : * 35 42 degrees QTcB Int : 429 ms Atrial fibrillation Septal infarct (cited on or before 07-Apr-2025) Abnormal ECG When compared with ECG of 07-Apr-2025 05:02, No significant change was found Confirmed by Javon Sorto ([id number]) on 04/08/2025 11:45:47 AM Referred By: REFERRED SELF Confirmed By: Javon Sorto
--- NOTE | 2025-04-08 12:59 | Cardiology Progress Note ---
Date of Service April 08, 2025 Assessment & Plan (1) New onset a-fib: (2) Thrombus of left atrial appendage: (3) Chronic alcohol use: (4) Sleep apnea in adult: (5) Hepatic steatosis: Plan 55-year-old male patient with longstanding hypertension, chronic alcohol use/abuse, severe untreated obstructive sleep apnea, and family history of atrial fibrillation admitted with new onset symptomatic atrial fibrillation with a rapid ventricular response. Heart rate improved with titration of beta- [place] therapy and addition of diltiazem. Transesophageal echocardiogram performed yesterday demonstrating a small left atrial appendage thrombus. Cardioversion was not performed. Recommendations: * Discontinue short acting diltiazem. * Transition to diltiazem CD 180 mg daily. * Discontinue metoprolol tartrate. * Transition to Toprol-XL 50 mg twice daily. * External direct-current cardioversion after 4 weeks of adequate anticoagulation. * Weekly INRs via the outpatient [facility] anticoagulation clinic. * Discontinue alcohol advised. Cheo Perry DO, [facility] Admission and Anticipated Discharge Date Admission Date: April 06, 2025 Subjective 55-year-old male seen and examined at the bedside. Heart rate controlled overnight at rest. Telemetry demonstrates atrial fibrillation in the 70s. Elevated heart rates noted with activity. Patient reports dyspnea with ambulation. Denies chest discomfort or heaviness. Review of Systems Review of Systems: All systems reviewed & are unremarkable except as noted in Subjective Physical Exam Constitutional: well nourished; no acute distress Respiratory: no respiratory distress, no labored breathing and no retractions Auscultation: no crackles, no rales, no rhonchi and no wheezes Cardiovascular: Rate/Rhythm: + irregularly irregular Heart Sounds: normal S1 and normal S2; no murmur Vessels: no JVD and no carotid bruit Extremities: no edema Gastrointestinal (Abdomen): Inspection/Auscultation: abdomen normal to inspection and normal bowel sounds; abdomen not distended Percussion/Palpation: abdomen soft; abdomen nontender, no guarding and abdomen not rigid Neurologic: CN's II-XI intact bilaterally and moves all extremities Results & Data Vital Signs (Past 12 Hours) Vital Signs Temp Pulse Resp BP BP Pulse Ox O2 Del Method 04/08/25 10:36 36.3 C L 77 18 124/83 96 Room Air 07/15/25 07:14 36.5 C 84 18 133/93 116/80 93 Room Air 04/08/25 02:48 36.7 C 77 18 117/66 96 Room Air Laboratory Results Coagulation 04/08/25 Range/Units 05:53 PT 21.4 H (9.0-12.0) Seconds CBC 04/08/25 Range/Units 05:53 WBC 6.73 (4.8-10.8) K/ul RBC 5.30 (4.70-6.10) M/uL Hgb 15.9 (14.0-18.0) g/dl Hct 44.8 (42.0-52.0) % Plt Count 214 (130-400) K/uL Comprehensive Metabolic Panel 04/08/25 Range/Units 05:53 Sodium 141 (136-145) mmol/L Potassium 4.0 (3.5-5.1) mmol/L Chloride 101 (98-107) mmol/L Carbon Dioxide 28 (21-32) mmol/L BUN 16 (6-23) mg/dl Creatinine 1.26 (0.6-1.4) mg/dl Glucose 176 H (70-99(Fasting)) mg/dl Calcium 9.3 (8.6-10.3) mg/dl Intake and Output 04/07/25 04/08/25 04/08/25 22:59 06:59 14:59 Intake Total 150 / 610.400 100 / 610.400 Balance 150 / 610.400 100 / 610.400 Intake: Oral 150 / 250 100 / 250 Other: # Unmeasured Voids 1 1 Weight 117.4 kg Weight Measurement Method Built in [facility] PG Care Time/CCT Total # of Minutes Spent Total Time Spent with Patient: Total time spent is greater than 50% in coordination of care (as documented) at patient's floor/unit and/or counseling patient: Coding Level of Care Code 19074 SUB INP/OBS CARE 3/50MIN Diagnoses New onset a-fib I48.91 Thrombus of left atrial appendage I51.3 Chronic alcohol use F10.90 Sleep apnea in adult G47.30 Hepatic steatosis K76.0
--- NOTE | 2025-04-08 13:26 | Pharmacy Report ---
Pharmacy Glycemic Short Note 2 - Date of Service April 08, 2025 - Glycemic Short BSG Results (Last 24 hours): 04/07/25 04/07/25 04/08/25 16:07 20:00 00:20 Glucose POC Glucose 198 H 226 H 157 H 04/08/25 04/08/25 04/08/25 05:53 07:31 10:50 Glucose 176 H POC Glucose 209 H 246 H OUTPATIENT ANTIDIABETIC REGIMEN: * n/a HbA1c: 9% on 04/07/25 ASSESSMENT: 04/08: * Marvin received a total of 64 units of insulin yesterday (25 units were basal and 39 units were bolus). Despite the significant increase in insulin, all BSG readings were above the goal range yesterday. * Fasting BSG was 209mg/dL this morning. Continued Lantus 10 units in the morning as both dextrose containing drips that the patient was on were discontinued. * Lunch BSG alberto to 246mg/dL so tightened the correction factor of the bolus insulin and increased the Lantus scale at HS (0, 15, or 20 units depending on BSG). 04/07: * Marvin is a 55 year old male who was admitted last evening with new onset a.fib with RVR and hyperglycemia. Pharmacy was consulted for glycemic management while he is admitted. * BSG on arrival yesterday was 302mg/dL. At that time the provider ordered Lantus 8 units SQ x 1 as well as a bolus insulin regimen with fairly loose parameters. * BSG was still > 300mg/dL at dinner time, so 10 units iv regular insulin were given, the bolus insulin was changed to a weight based dosing with a stress of 2, and an additional 10 units of Lantus was ordered to be given at bedtime. * Fasting BSG was 366mg/dL this morning. Lantus 10 units SQ x 1 was ordered and a Lantus scale (0, 10, or 15 units depending on BSG) was added for HS. Carb ratio was also tightened for better prandial control--Diet was ordered starting at lunch. BSG checks ordered for q 4 hours for now until he is better controlled. PLAN FOR INPATIENT GLYCEMIC CONTROL: * Basal insulin * Lantus 10 units SQ Q AM then Lantus scale for HS (0, 15 or 20 units depending on BSG) * Bolus insulin * NovoLog per scale ACHS or Q6hrs while NPO * Goal Range: Low 110 mg/dL - High 140 mg/dL * Correction Factor: 15 mg/dL/unit * Nutritional / Prandial insulin per carb ratio of 1 unit per 6 grams CHO consumed
[2025-04-08 13:45] VITALS: BP 116/80; PULSE 95
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
[2025-04-08] MEDS ORDERED: WARFARIN SOD 10 MG TAB PO SCH (16:00)
== END 2025-04-08 15:06 | disposition home or self-care (01) | DRG 310 ==
LOC: ED 07:24 → SUATTDRO 09:59 → 2S 09:59